=== PATIENT | male | born 1955 | race Caucasian/White ===

== ENCOUNTER 2023-04-02 11:56 | Outpatient (OUT) | payer MEDICARE, SELFPAY ==
[2023-04-02 13:01] LABS: Estimated Average Glucose 123 mg/dL; Glycohemoglobin A1C 5.9 % (4.5-6.2)
[2023-04-02 13:23] LABS: Alanine Aminotransferase 22 U/L (16-63); Albumin Globulin Ratio 1.1; Albumin Level 3.8 g/dL (3.4-5.0); Alkaline Phosphatase 78 U/L (46-116); Anion Gap 12.6; Aspartate Amino Transferase 15 U/L (15-37); BUN Creatinine Ratio 13.9; Bilirubin Total 1.7 mg/dL (0.2-1.0); Calcium 9.5 mg/dL (8.5-10.1); Carbon Dioxide 27.2 mmol/L (21.0-32.0); Chloride 103 mmol/L (98-107); Chol HDL Ratio 3.3; Cholesterol 208 mg/dL (<=200); Estimated GFR (African America >60 (>=60); Estimated GFR (Non-African Ame 59 (>=60); Globulin 3.6 g/dL; Glucose 122 mg/dL (74-106); HDL Cholesterol 63 mg/dL (40-60); Potassium 3.8 mmol/L (3.5-5.1); Sodium 139 mmol/L (136-145); Total Protein 7.4 g/dL (6.4-8.2); Triglycerides 84 mg/dL (<=150); VLDL CHOLESTEROL 16.8 mg/dL
== END 2023-04-02 11:57 ==
LOC: LAB 12:01
PROVIDERS: PCP Family Medicine; Visit Provider Family Medicine
DX: E11.8 Type 2 diabetes mellitus with unspecified complications (principal)
CPT/HCPCS: 36415; 80053; 80061; 83036

== ENCOUNTER 2023-07-09 11:47 | Outpatient (OUT) | payer MEDICARE, SELFPAY ==
[2023-07-09 13:36] LABS: Estimated Average Glucose 114 mg/dL; Glycohemoglobin A1C 5.6 % (4.5-6.2)
== END 2023-07-09 11:48 | disposition home or self-care (01) ==
PROVIDERS: PCP Family Medicine; Visit Provider Family Medicine
DX: I10 Essential (primary) hypertension (principal); R73.09 Other abnormal glucose
CPT/HCPCS: 36415; 83036

== ENCOUNTER 2023-10-09 11:12 | Outpatient (OUT) | payer MEDICARE, SELFPAY ==
[2023-10-09 14:23] LABS: C. Difficile PCR NEGATIVE (NEGATIVE)
== END 2023-10-09 11:13 | disposition home or self-care (01) ==
LOC: LAB 11:12
PROVIDERS: PCP Family Medicine; Visit Provider Family Medicine
DX: I10 Essential (primary) hypertension (principal)
CPT/HCPCS: 87045; 87046; 87427; 87493

== ENCOUNTER 2024-04-02 11:24 | Outpatient (OUT) | payer MEDICARE, SELFPAY ==
--- OUTSIDE RECORDS SUMMARY | 2024-04-02 11:36 | XMS_ITS | CCD ---
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 Role Phone Alanis Saleem Primary Care Physician GRAEME ., DR THAPA Admitting Unavailable HOY ., DR THAPA Attending Unavailable HOY ., DR THAPA Primary Care Unavailable NILL ., DR CLINTON Admitting Unavailable NILL ., DR CLINTON Attending Unavailable HOY ., DR THAPA Primary Care Unavailable NILL ., DR CLINTON Consulting Unavailable KATH MINA Consulting Unavailable MARY LOU PATRICK Consulting Unavailable BEE ., DR FERNANDES Admitting Unavailable BEE ., DR FERNANDES Attending Unavailable HOY ., DR THAPA Primary Care Unavailable BEE ., DR FERNANDES Consulting Unavailable ARIZA, MEÑO Consulting Unavailable HOY ., DR THAPA Admitting Unavailable HOY ., DR THAPA Attending Unavailable HOY ., DR THAPA Primary Care Unavailable HOY ., DR THAPA Consulting Unavailable HOY ., DR THAPA Admitting Unavailable HOY ., DR THAPA Attending Unavailable HOY ., DR THAPA Primary Care Unavailable HOY ., DR THAPA Consulting Unavailable HOY ., DR THAPA Admitting Unavailable HOY ., DR THAPA Attending Unavailable HOY ., DR THAPA Primary Care Unavailable HOY ., DR THAPA Consulting Unavailable BEE ., DR FERNANDES Admitting Unavailable BEE ., DR FERNANDES Attending Unavailable HOY ., DR THAPA Primary Care Unavailable BEE ., DR FERNANDES Consulting Unavailable OSCO, DR JAIRO Panchal Consulting Unavailable EastonyUgoAlanis Referring Unavailable NILLMary Beth R Attending Unavailable NILL, Mary Beth R Attending Unavailable NILL, Mary Beth R Attending Unavailable BEE, Jasper R Attending Unavailable BEEJasper Attending Unavailable NILL, Mary Beth R Attending Unavailable Hoy, Alanis Referring Unavailable Allergies Allergy Classification Reported Allergen(s) Allergy Type Date of Onset Reaction(s) Facility (1 source) bee venom Drug allergy (disorder) [facility] Repository (1 source) No Known Medication Allergies; Translations: [No Known Medication Allergies] Propensity to adverse reactions (disorder) [facility] Repository Medications Current Medications Medication Drug Class(es) Dates Sig (Normalized) Sig (Original) finasteride 5 mg oral tablet (4 sources) 5-alpha Reductase Inhibitor Start: 02-22-2022 take 1 tablet by mouth once daily finasteride 5 mg Tab 5 mg = 1 tab(s), Oral, Daily, Refills(s) 0 Start Date: 02/22/22 Status: Ordered metoprolol tartrate 50 mg oral tablet (4 sources) beta-Adrenergic Rochelle Start: 11-20-2022 take 1 tablet by mouth twice daily Metoprolol tartrate 50 mg Tab 50 mg = 1 tab(s), Oral, BID, Refills(s) 0 Start Date: 11/20/22 Status: Ordered Start: 07-26-2019 take 1 mg by mouth once daily metoprolol 25 mg ER Tab mg tab(s), Oral, Daily, Refills(s) 0 Start Date: 07/26/19 Status: Ordered pantoprazole 40 mg delayed release oral tablet (4 sources) Proton Pump Inhibitor Start: 11-20-2022 take 1 tablet by mouth once daily Pantoprazole [address] Tab 40 mg = 1 tab(s), Oral, Daily, Refills(s) 0 Start Date: 11/20/22 Status: Ordered Start: 07-26-2019 take 1 mg by mouth once daily pantoprazole 40 mg Oral EC Tab mg tab(s), Oral, Daily, Refills(s) 0 Start Date: 07/26/19 Status: Ordered tamsulosin hydrochloride 0.4 mg oral capsule (4 sources) alpha-Adrenergic Rochelle Start: 07-26-2019 take 1 capsule by mouth twice daily tamsulosin 0.4 mg Cap 0.4 mg = 1 cap(s), Oral, BID, # 180 cap(s), Refills(s) 3, Pharmacy: [facility] Start Date: 07/26/19 Status: Ordered Problems Active Problems Problem Classification Problem Date Documented Da te Episodic/Chronic Biliary tract disease (3 sources) Biliary calculus 11-20-2022 Episodic Calculus of urinary tract (17 sources) History of calculus of kidney; Translations: [Personal history of urinary calculi] Onset: 2 Episodic Diabetes mellitus without complication (4 sources) Type 2 diabetes mellitus without complications; Translations: [TYPE 2 DM WITHOUT COMPLICATIONS] Onset: 3 Chronic Diabetes mellitus without complication (5 sources) Prediabetes; Translations: [Prediabetes] Onset: 3 11-22-2022 Episodic Disorders of lipid metabolism (1 source) Hyperlipidemia, unspecified; Translations: [HYPERLIPIDEMIA UNSPECIFIED] Onset: 3 Chronic Diverticulosis and diverticulitis (7 sources) Diverticular disease; Translations: [Diverticula of intestine] Onset: 3 11-20-2022 Chronic Esophageal disorders (4 sources) Gastroesophageal reflux disease; Translations: [Gastro-esophageal reflux disease without esophagitis] Onset: 3 11-20-2022 Chronic Essential hypertension (5 sources) Hypertensive disorder; Translations: [Essential (primary) hypertension] Onset: 3 04-30-2019 Chronic Genitourinary symptoms and ill-defined conditions (4 sources) Nocturia 07-26-2019 Episodic Hemorrhoids (2 sources) Other hemorrhoids; Translations: [Residual hemorrhoidal skin tags] Onset: 3 Episodic Hyperplasia of prostate (12 sources) Benign prostatic hypertrophy without outflow obstruction; Translations: [Benign prostatic hyperplasia without lower urinary tract symptoms] Onset: 2 Chronic Nutritional deficiencies (1 source) Vitamin D deficiency, unspecified; Translations: [VITAMIN D DEFICIENCY UNSPECIFIED] Onset: 3 Chronic Other aftercare (1 source) 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; Translations: [OTH SALES TRAINER CURRENT DRUG THERAPY] Onset: 3 Episodic Other and unspecified benign neoplasm (1 source) Polyp of colon; Translations: [Polyp of colon] Onset: 3 Episodic Other and unspecified benign neoplasm (3 sources) Benign neoplasm of descending colon; Translations: [Benign neoplasm of descending colon] Onset: 3 Episodic Other and unspecified benign neoplasm (1 source) Benign neoplasm of descending colon; Translations: [BENIGN NEOPLASM OF DESCENDING COLON] Onset: 3 Episodic Other and unspecified benign neoplasm (1 source) Polyp of colon; Translations: [POLYP OF COLON] Onset: 3 Episodic Other diseases of kidney and ureters (2 sources) Acquired renal cyst without neoplastic change; Translations: [Cyst of kidney, acquired] Onset: 2 Episodic Other diseases of kidney and ureters (4 sources) Hydronephrosis due to ureteral obstruction 04-30-2019 Episodic Other diseases of kidney and ureters (1 source) Cyst of kidney, acquired; Translations: [CYST OF KIDNEY ACQUIRED] Onset: 3 Episodic Other diseases of kidney and ureters (1 source) Cyst of kidney 05-21-2023 Episodic Other gastrointestinal disorders (1 source) Abnormal feces; Translations: [Other fecal abnormalities] Onset: 3 Episodic Other gastrointestinal disorders (3 sources) Occult blood in stools 11-22-2022 Episodic Other gastrointestinal disorders (2 sources) Hyperplastic polyp of intestine 01-07-2023 Episodic Other gastrointestinal disorders (4 sources) Other fecal abnormalities; Translations: [OTHER FECAL ABNORMALITIES] Onset: 3 Episodic Other nutritional; endocrine; and metabolic disorders (3 sources) Body mass index 30+ - obesity 11-22-2022 Chronic Other screening for suspected conditions (not mental disorders or infectious disease) (11 sources) Raised prostate specific antigen; Translations: [Elevated prostate specific antigen [PSA]] Onset: 2 Episodic Other upper respiratory disease (3 sources) Seasonal allergic rhinitis 11-20-2022 Chronic Past or Other Problems Problem Classification Problem Date Documented Da te Episodic/Chronic Other injuries and conditions due to external causes (4 sources) Other injury of unspecified body region, initial encounter; Translations: [OTHER INJURY UNS BODY REGION INIT] Onset: 06-11-2022 Episodic Other non-traumatic joint disorders (4 sources) Pain in unspecified joint; Translations: [PAIN IN UNSPECIFIED JOINT] Onset: 11-13-2022 Episodic Results Test Name Value Interpretation Reference Range Facility Lab Reportson 05-29-2023 Lab Reports [id number] #1.00CD:127 Normal [facility] Ambulatory Visit Summaryon 0 05-26-2023 Ambulatory Visit Summary GIL ALMEIDA :1955 Visit Date:05/26/2023 Ambulatory Visit Instructions Your Diagnosis BPH with elevated PSA Kidney stone Renal cyst History of kidney stones Bladder stones Tests Performed Urnls Dip Stick Auto w/o Microscopy POC 04633 XR Abdomen 1 View -- Results Pending -- Please visit your patient portal for your results or contact your primary care physician. Your Care Team Attending Physician - Jasper BEE MD Primary Care Physician - Alanis Saleem MD This Is Your Medications List finasteride (finasteride 5 mg Tab) tamsulosin (tamsulosin 0.4 mg Cap) Contact prescribing physician if questions or concerns metoprolol (Metoprolol tartrate 50 mg Tab) pantoprazole (Pantoprazole [address] Tab) Procedures Performed Colonoscopy (12/18/2022), ESWL of kidney (03/01/2021), Cystoscopic removal of ureteric stent (05/04/2019), Lithotripsy using laser (04/29/2019), Repair of left inguinal hernia. Discharge Vitals Heart Rate (Peripheral) 80 Blood Pressure 150/100 Height 70 in Height 177.8 cm Weight 185.46 lb Weight 84.3 kg BMI 26.67 What to do next You Need to Schedule the Following Appointments Follow Up with GAEL KRISHNAMURTHY, AYUSH Adams When: In 1 year Comments: JOAN Where: [facility] [address], [place] [address]- [phone] Medications What How Much When Instructions Unchanged finasteride (finasteride 5 mg Tab) 1 Tablets By Mouth Every day Unchanged tamsulosin (tamsulosin 0.4 mg Cap) 1 Capsules By Mouth 2 times a day Unchanged metoprolol (Metoprolol tartrate 50 mg Tab) 1 Tablets By Mouth 2 times a day Contact prescribing physician if questions or concerns Unchanged pantoprazole (Pantoprazole [address] Tab) 1 Tablets By Mouth Every day Contact prescribing physician if questions or concerns Test Results Urnls Dip Stick Auto w/o Microscopy POC 00415 (05/26/2023) Bilirubin Urine Dipstick - Negative Blood Urine Dipstick - Negative Glucose Urine Dipstick - Negative Ketones Urine Dipstick - Negative Leukocytes Urine Dipstick - Negative Nitrite Urine Dipstick - Negative Protein Urine Dipstick - Negative Specific [place] Urine Dipstick - 1.020 Urine Appearance Urine Dipstick - Clear Urine Color Urine Dipstick - Yellow Urobilinogen Urine Dipstick - Normal 0.2-1 EU/dl pH Urine Dipstick - 7.5 Allergies No Known Allergies No Known Medication Allergies Problems Ongoing - Any problem that you are currently receiving treatment for. Bladder stones BMI 32.0-32.9,adult BPH with elevated PSA Cholelithiasis Diverticulosis Elevated PSA Enlarged prostate with urinary obstruction GERD (gastroesophageal reflux disease) History of kidney stones Hydronephrosis with ureteral calculus Hyperplastic polyp of sigmoid colon Hypertension Kidney stone Nocturia Positive fecal occult blood test Pre-diabetes Renal cyst Seasonal allergic rhinitis Sigmoid diverticulosis Tubular adenoma of colon Education Materials Dietary Guidelines to Help Prevent Kidney Stones Kidney stones are deposits of minerals and salts that form inside your kidneys. Your risk of developing kidney stones may be greater depending on your diet, your lifestyle, the medicines you take, and whether you have certain medical conditions. Most people can lower their chances of developing kidney stones by following the instructions below. Your dietitian may give you more specific instructions depending on your overall health and the type of kidney stones you tend to develop. What are tips for following this plan? Reading food labels ? Choose foods with no salt added or low-salt labels. Limit your salt (sodium) intake to less than 1,500 mg a day. ? Choose foods with calcium for each meal and snack. Try to eat about 300 mg of calcium at each meal. Foods that contain 200?500 mg of calcium a serving include: ? 8 oz (237 mL) of milk, calcium-fortifiednon -dairy milk, and calcium-fortifiedfru it juice. Calcium-fortified means that calcium has been added to these drinks. ? 8 oz (237 mL) of kefir, yogurt, and soy yogurt. ? 4 oz (114 g) of tofu. ? 1 oz (28 g) of cheese. ? 1 cup (150 g) of dried figs. ? 1 cup (91 g) of cooked broccoli. ? One 3 oz (85 g) can of sardines or mackerel. Most people need 1,000?1,500 mg of calcium a day. Talk to your dietitian about how much calcium is recommended for you. Shopping ? Buy plenty of fresh fruits and vegetables. Most people do not need to avoid fruits and vegetables, even if these foods contain nutrients that may contribute to kidney stones. ? When shopping for convenience foods, choose: ? Whole pieces of fruit. ? Pre-made salads with dressing on the side. ? Low-fat fruit and yogurt smoothies. ? Avoid buying frozen meals or prepared deli foods. These can be high in sodium. ? Look for foods with live cultures, such (more content not included)... Normal [facility] Patient Educationon 05-26-20 Patient Education Nephrology Dietary Guidelines to Help Prevent Kidney Stones Kidney stones are deposits of minerals and salts that form inside your kidneys. Your risk of developing kidney stones may be greater depending on your diet, your lifestyle, the medicines you take, and whether you have certain medical conditions. Most people can lower their chances of developing kidney stones by following the instructions below. Your dietitian may give you more specific instructions depending on your overall health and the type of kidney stones you tend to develop. What are tips for following this plan? Reading food labels ? Choose foods with no salt added or low-salt labels. Limit your salt (sodium) intake to less than 1,500 mg a day. ? Choose foods with calcium for each meal and snack. Try to eat about 300 mg of calcium at each meal. Foods that contain 200?500 mg of calcium a serving include: ? 8 oz (237 mL) of milk, calcium-fortifiednon -dairy milk, and calcium-fortifiedfru it juice. Calcium-fortified means that calcium has been added to these drinks. ? 8 oz (237 mL) of kefir, yogurt, and soy yogurt. ? 4 oz (114 g) of tofu. ? 1 oz (28 g) of cheese. ? 1 cup (150 g) of dried figs. ? 1 cup (91 g) of cooked broccoli. ? One 3 oz (85 g) can of sardines or mackerel. Most people need 1,000?1,500 mg of calcium a day. Talk to your dietitian about how much calcium is recommended for you. Shopping ? Buy plenty of fresh fruits and vegetables. Most people do not need to avoid fruits and vegetables, even if these foods contain nutrients that may contribute to kidney stones. ? When shopping for convenience foods, choose: ? Whole pieces of fruit. ? Pre-made salads with dressing on the side. ? Low-fat fruit and yogurt smoothies. ? Avoid buying frozen meals or prepared deli foods. These can be high in sodium. ? Look for foods with live cultures, such as yogurt and kefir. ? Choose high-fiber grains, such as whole-wheat breads, oat bran, and wheat cereals. Cooking ? Do not add salt to food when cooking. Place a salt shaker on the table and allow each person to add his or her own salt to taste. ? Use vegetable protein, such as beans, textured vegetable protein (TVP), or tofu, instead of meat in pasta, casseroles, and soups. Meal planning ? Eat less salt, if told by your dietitian. To do this: ? Avoid eating processed or pre-made food. ? Avoid eating fast food. ? Eat less animal protein, including cheese, meat, poultry, or fish, if told by your dietitian. To do this: ? Limit the number of times you have meat, poultry, fish, or cheese each week. Eat a diet free of meat at least 2 days a week. ? Eat only one serving each day of meat, poultry, fish, or seafood. ? When you prepare animal protein, cut pieces into small portion sizes. For most meat and fish, one serving is about the size of the palm of your hand. ? Eat at least five servings of fresh fruits and vegetables each day. To do this: ? Keep fruits and vegetables on hand for snacks. ? Eat one piece of fruit or a handful of berries with breakfast. ? Have a salad and fruit at lunch. ? Have two kinds of vegetables at dinner. ? Limit foods that are high in a substance called oxalate. These include: ? Spinach (cooked), rhubarb, beets, sweet potatoes, and [place] chard. ? Peanuts. ? Potato chips, taiwanese fries, and baked potatoes with skin on. ? Nuts and nut products. ? Chocolate. ? If you regularly take a diuretic medicine, make sure to eat at least 1 or 2 servings of fruits or vegetables that are high in potassium each day. These include: ? Avocado. ? Banana. ? [place], prune, carrot, or tomato juice. ? Baked potato. ? Cabbage. ? Beans and split peas. Lifestyle ? Drink enough fluid to keep your urine pale yellow. This is the most important thing you can do. Spread your fluid intake throughout the day. ? If you drink alcohol: ? Limit how much you use to: ? 0?1 drink a day for women who are not . ? 0?2 drinks a day for men. ? Be aware of how much alcohol is in your drink. In the [place] one drink equals one 12 oz bottle of beer (355 mL), one 5 oz glass of wine (148 mL), or one 1? oz glass of hard liquor (44 mL). ? Lose weight if told by your health care provider. Work with your dietitian to find an eating plan and weight loss strategies that work best for you. General information ? Talk to your health care provider and dietitian about taking daily supplements. You may be told the following depending on your health and the cause of your kidney stones: ? Not to take supplements with vitamin C. ? To take a calcium supplement. ? To take a daily probiotic supplement. ? To take other supplements such as magnesium, fish oil, or vitamin B6. ? Take [id number] and prescription medicines only as told by your health care provider. These include supplements. What foods should I limit? Limit your in (more content not included)... Normal [facility] Reminderson 05-26-2023 Reminders - From: Edilia Silva To: KIKA Pandya Bee; Sent: 05/26/2023 17:01:54 EDT Show up: 04/25/2024 17:01:00 EDT Subject: KUB prior to appt Reminder Message Please Remember to:_have pt get KUB done prior to appt. Normal [facility] Urology Office/Clinic Noteon 05-26-2023 Urology Office/Clinic Note Chief Complaint 15 month follow up HPI Staff 15 month follow up w/KUB done 02/19/23 due to Kidney Stone & Rt Renal Cyst. (office RS'd x1 due to PRW schedule). CT SCAN done 03/06/23. Previous DX: BPH w/Elevated PSA, Kidney Stone & Rt Renal Cyst. *Flomax 0.4mg BID & Finasteride 5mg QD therapy. S/P ESWL done 03/01/21. Dysuria: denies pain or burning Incomplete bladder emptying: denies Hematuria: denies visible blood Frequency: denies Urgency: yes due to increase of water Nocturia: 2-3x a night Stream: denies hesitancy, denies weak stream Leaking: denies Post void dripping: denies Wearing pads/ Depends: denies Urge incontinence: denies Stress incontinence: denies Incontinence without Sensory Awareness: denies Abdominal pain: denies Flank pain: denies Sexual complaints: denies History of Present Illness Tests reviewed: reviewed UA, KUB, CT scan I have reviewed the previous health record information and history for this patient from Dr. Bee. I have reviewed and verified the staff HPI to be accurate for this encounter. There have been no associated fever, chills, flank pain, or blood in the urine. Denies any urinary infections since last encounter. Review of Systems PHQ Score Initial Depression Screen Score: 0 ROS - Provider Constitutional: denies weight loss, denies hot flashes. Eyes: denies eye problems. Gastrointestinal: denies nausea, denies vomiting. Cardiovascular: denies chest pain or angina. Integumentary: no dryness Musculoskeletal: denies musculoskeletal symptoms. ENMT: denies otolaryngeal symptoms. Respiratory: no shortness of breath. Heme/Lymph: denies easy bleeding tendency, denies easy bruising tendency. Psychiatric: no confusion, no anxiety. Genitourinary: See HPI. Physical Exam Vitals & Measurements HR: 80(Peripheral) BP: 150/100 HT: 70 in HT: 177.8 cm WT: 84.3 kg WT: 185.46 lb BMI: 26.67 General Appearance: alert, no distress, well nourished, well developed male. Genitourinary: normal scrotum, normal testes, normal urethra, normal epididymis, normal vas deferens/spermatic cord. Flank Pain: none. Bladder: nonpalpable. Assessment/Plan Pt reports he was recently diagnosed with diabetes. 1. BPH with elevated PSA (N40.0: Benign prostatic hyperplasia without lower urinary tract symptoms) PSA (monitored by PCP): 02/03/21 - 1.35 10/02/21 - 1.0 (2.0 with Finasteride) 11/13/22 - 1.40 (2.80 with Finasteride) Pt continues taking Finasteride 5mg QD and Tamsulosin 0.4mg BID. Reports he has nocturia 2-3x/night, admits he does drink a lot of water. Good stream. Feels he empties completely. UA today negative for blood and infection. 2. Kidney stone (N20.0: Calculus of kidney) S/p Left ESWL 03/01/21 [1] KUB 02/19/23 at [facility] showed stable, tiny left renal calcifications CT AP w con done 03/06/23 at [facility] showed nonobstructing bilateral renal stones and 2 adjacent 4 mm stones within posterior right urinary bladder. 1.24 Cr, 58 EGFR on 03/06/23. Denies any flank pain or changes in urinary sxs. Recommended pt to increase fluid intake to ten to twelve 16oz bottles a day; preferably water, clear pop, and sugar free lemonade. Follow up with KUB in 1 year in or sooner if needed. All questions/concerns were discussed. Pt to call the office if he encounters any issues prior. Pt acknowledges understanding. 3. Renal cyst (N28.1: Cyst of kidney, acquired) Per KUB done 02/03/[address], 9.5cm right renal cyst [2] CT AP w con done 03/06/23 at [facility] showed a 10 cm right superior pole renal cyst and stable, small left superior pole renal cysts. 4. History of kidney stones (Z87.442: Personal history of urinary calculi) Patient shares he has a hx of kidney stones. First one in 1993 and passed naturally, two bilateral stones in 2020 with one still remaining. [3] 5. Bladder stones (N21.0: Calculus in bladder) CT AP w con done 03/06/23 at [facility] showed 2 adjacent 4mm stones within posterior R bladder. he should pass these. Follow-up With When Contact Information GAEL KRISHNAMURTHY, AYUSH Adams In 1 year [facility] [address], [place] [address]- [phone] Additional Instructions: KUB Patient Education Dietary Guidelines to Help Prevent Kidney Stones IEdilia, personally scribed for Dr. Bee on 05/26/2023 13:30:20. . Documentation recorded by the scribeEdilia, accurately reflects the services(s) I performed and decisions made by me. Authenticated by Dr. Bee on 05/26/2023 13:32:10. Problem List/Past Medical History Ongoing Bladder stones BMI 32.0-32.9,adult BPH with elevated PSA Cholelithiasis Diverticulosis Elevated PSA Enlarged prostate with urinary obstruction GERD (gastroesophageal reflux disease) History of kidney stones Hydronephrosis with ureteral calculus Hyperplastic polyp of sigmoid colon Hypertension Kidney stone Nocturia Positive fecal occult blood test Pre-diabete (more content not included)... [facility] Comment on above: Result Comment: Elec tronically Signed By: GAEL KRISHNAMURTHY, Jasper Panchal\.br\Date and Time Signed: 05/26/23 13:32 EDT\.br\Electronically Co-Signed By: Edilia Silva\.br\Date and Time Co-Signed: 05/26/23 13:30 EDT RAD - CT Reporton 03-12-2023 RAD - CT Report [id number] #1.00CD:127 [facility] Lab Reportson 03-07-2023 Lab Reports [id number]# 1.00CD:127 [facility] Reminderson 02-28-2023 Reminders - From: Patricia Lam To: [facility] - Mumtaz Bee; Sent: 02/27/2022 10:03:24 EDT Show up: 01/11/2023 10:03:00 EDT Subject: Ct scan Reminder/Recall Pt needs Ct scan with contrast prior to February 2023 appt Orders sent to [facility] to be scheduled spoke to pt he has not heard anything from [facility] Attempted to call [facility] for the second time Advised pt to call [facility] as well have attempted to call [facility] multiple times in the past two days with no success. Called [facility] to clarify if they received order. Pt is scheduled on March 06 at [facility] at 8:45am will send him a letter today. He is to fast for 4 hours. Patient was notified.[facility] RAD - MISCon 02-24-2023 RAD - MISC [id number] #1.00CD:127 Normal [facility] XR KUB 1 VIEWon 02-20-2023 XR KUB 1 VIEW EXAMINATION: XR KUB 1 VIEW HISTORY: Kidney stone COMPARISON: XR KUB 03/01/2022 FINDINGS: KIDNEY/URETER - RIGHT: No visible renal or ureteral calcifications. KIDNEY/URETER - LEFT: Numerous tiny calcifications projecting over left kidney. PELVIS: No appreciable ureteral stones. Stable appearance of the numerous pelvic calcifications, favoring phleboliths. BOWEL: No abnormal dilation or deviation. BONES: No acute abnormality. OTHER: Negative. No abnormal gaseous collections. IMPRESSION: 1. Grossly stable left nephrolithiasis. Electronically authenticated by: JAIRO WAN Date: 2023-02-20 07:16 Normal [facility] Ambulatory Visit Summaryon 0 01-07-2023 Ambulatory Visit Summary GIL ALMEIDA :1955 Visit Date:01/07/2023 Ambulatory Visit Instructions Your Diagnosis Sigmoid diverticulosis Benign neoplasm of descending colon Hyperplastic polyp of sigmoid colon Your Care Team Attending Physician - Mary Beth EWIR MD Primary Care Physician - Alanis Saleem MD This Is Your Medications List Contact prescribing physician if questions or concerns finasteride (finasteride 5 mg Tab) metoprolol (Metoprolol tartrate 50 mg Tab) pantoprazole (Pantoprazole [address] Tab) tamsulosin (tamsulosin 0.4 mg Cap) Procedures Performed Colonoscopy (12/18/2022), ESWL of kidney (03/01/2021), Cystoscopic removal of ureteric stent (05/04/2019), Lithotripsy using laser (04/29/2019), Repair of left inguinal hernia. What to do next Scheduled Follow-Up Appointments Friday. 2022 11:15 AM EDT With: GAEL KRISHNAMURTHY, Jasper Panchal Where: [facility] General Surgery Office/Clini c Noteon 01-07-2023 General Surgery Office/Clinic Note Chief Complaint colonoscopy follow up HPI Staff 20 day post operative follow up post colonoscopy with descending colon and sigmoid polypectomies. History of Present Illness s/p colonoscopy with polypectomies x 2 for descending colon tubular adenoma and sigmoid hyperplastic polyp; also had moderated sigmoid diverticulosis; doing well, denies abd pain or blood in stools. Review of Systems ROS - Provider Constitutional: no fever, no sweats, no weight loss. Eyes: no glasses, no blurred vision, no visual loss. ENMT: no dentures, no hoarseness, no swallowing difficulties, no hearing loss, no ear infection(s), no nose bleeds. Cardiovascular: normal blood pressure, no chest pain, regular heartbeat, no heart murmur. Respiratory: no shortness of breath, no cough, no asthma, no wheezing. Gastrointestinal: no nausea, no vomiting, no diarrhea, no constipation, no blood in stool, no change in bowel habits, no abdominal pain, no hepatitis. Genitourinary: no kidney stones, no urine infection, no dysuria. Musculoskeletal: no pain, no weakness. Skin: no changing moles, no rash, no skin lumps. Neurologic: no seizures, no epilepsy, no headache. Psychiatric: no emotional or psychiatric problem. Heme/Lymph: no bleeding problems, no anemia, no blood clots, no transfusions. Allergy/Immunologic: no swollen lymph nodes/glands, no IV drug abuse. Other: Additional ROS info: Except as noted in the above Review of Systems and in the History of Present Illness, all other systems have been reviewed and are negative or noncontributory. Assessment/Plan 1. Sigmoid diverticulosis (K57.30: Diverticulosis of large intestine without perforation or abscess without bleeding) high fiber diet and daily fiber supplement 2. Benign neoplasm of descending colon (D12.4: Benign neoplasm of descending colon) f/u surveillance colonoscopy in 5 years, call sooner if problems/questions. 3. Hyperplastic polyp of sigmoid colon (K63.5: Polyp of colon) see # 2 Follow-up No qualifying data available Problem List/Past Medical History Ongoing BMI 32.0-32.9,adult Cholelithiasis Diverticulosis Elevated PSA Enlarged prostate with urinary obstruction GERD (gastroesophageal reflux disease) Hydronephrosis with ureteral calculus Hyperplastic polyp of sigmoid colon Hypertension Kidney stone Nocturia Positive fecal occult blood test Pre-diabetes Seasonal allergic rhinitis Sigmoid diverticulosis Tubular adenoma of colon Historical No qualifying data Procedure/Surgical History Colonoscopy (12/18/2022), ESWL of kidney (03/01/2021), Cystoscopic removal of ureteric stent (05/04/2019), Lithotripsy using laser (04/29/2019), Repair of left inguinal hernia. Medications finasteride 5 mg Tab, 5 mg= 1 tab(s), Oral, Daily Metoprolol tartrate 50 mg Tab, 50 mg= 1 tab(s), Oral, BID Pantoprazole [address] Tab, 40 mg= 1 tab(s), Oral, Daily tamsulosin 0.4 mg Cap, 0.4 mg= 1 cap(s), Oral, BID, 3 refills Allergies No Known Allergies No Known Medication Allergies Social History Alcohol Current, 1-2 times per year, 04/30/2019 Substance Abuse - Denies Substance Abuse, 11/22/2022 Tobacco Never (less than 100 in lifetime) Tobacco Use:. Never Smokeless Tobacco Use:., 11/22/2022 Family History Aneurysm: Father. Diabetes: Mother. Diabetes mellitus type 2: Mother. Heart disease: Mother. Hyperlipidemia: Father. Hypertension: Father. Myocardial infarct: Father. Immunizations Vaccine Date Status Comments influenza virus vaccine, inactivated - Not Given Patient Refuses SARS-CoV-2 (COVID-19) mRNA BNT-162b2 vax 01/16/2021 Recorded SARS-CoV-2 (COVID-19) mRNA BNT-162b2 vax 12/27/2020 Recorded Normal [facility] Comment on above: Result Comment: Elec tronically Signed By: NAJMA KRISHNAMURTHY, Mary Beth Galvez\Date and Time Signed: 01/07/23 14:53 EDT Reminderson 01-07-2023 Reminders - From: Angela Sarabia LPN To: GSN - Clinical; Sent: 01/07/2023 14:42:19 EDT Show up: 11/20/2027 07:00:00 EST Subject: colonoscopy recall Due Date/Time: 12/19/2027 07:00:00 EST Reminder/Recall Patient is due for colonoscopy 12/19/2027 due to history of tubular adenoma. Normal [facility] Provider Letter FTon 12-26 Provider Letter [facility] December 26, 2022 GIL ALMEIDA [address] [place] [address] GIL ALMEIDA 1955 Dear _ , We have been trying to reach you with no success. It is important that you return our call upon receiving this letter. Also, at the time of your call, please provide us with your current information. Thank you for your prompt attention to this matter. Sincerely, Dr. Mary Beth Weir MD General Surgery [facility] Pathology Noteon 12-23-2022 Pathology Note [id number] #1.00CD:127 [facility] Outside Colonoscopyon 2022 Outside Colonoscopy [id number] #1.00CD:127 [facility] Pre-Certification Formon Pre-Certification Form [id number] 1#1.00CD:127 [facility] Consent for Procedure/Surger yon 11-25-2022 Consent for Procedure/Surgery [id number] #1.00CD:127 [facility] Ambulatory Visit Summaryon 0 11-22-2022 Ambulatory Visit Summary JUAN PABLOBARBARAGIL H :1955 Visit Date:11/22/2022 Ambulatory Visit Instructions Your Diagnosis Positive fecal occult blood test Your Care Team Attending Physician - NAJMA KRISHNAMURTHY, Mary Beth Panchal Primary Care Physician - Alanis Saleem MD Referring Physician - Alanis Saleem MD This Is Your Medications List Contact prescribing physician if questions or concerns finasteride (finasteride 5 mg Tab) metoprolol (Metoprolol tartrate 50 mg Tab) pantoprazole (Pantoprazole [address] Tab) tamsulosin (tamsulosin 0.4 mg Cap) Procedures Performed ESWL of kidney (03/01/2021), Cystoscopic removal of ureteric stent (05/04/2019), Lithotripsy using laser (04/29/2019), Repair of left inguinal hernia. Discharge Vitals Heart Rate (Peripheral) 72 Respiratory Rate 16 Blood Pressure 152/96 Height 172.72 cm Height 68 in Weight 97.3 kg Weight 214.06 lb BMI 32.62 What to do next Scheduled Follow-Up Appointments Friday 11:15 AM EDT With: Jasper BEE MD Where: [facility] TESS by IFAon 11-18-2022 Antinuclear Antibodies, IFA Negative Normal [facility] Comment on above: Result Comment: Nega tive <1:80 Borderline 1:80 Positive >1:80 ICAP nomenclature: AC-0 For more information about Hep-2 cell patterns use ANApatterns.org, the official website for the International Consensus on Antinuclear Antibody (TESS) Patterns (ICAP). Performed By: #### A NAIFA #### [facility] [address] [place] [address] Dr. Gianna Rodgers Physician Referralon 023 Physician Referral [id number] #1.00CD:127 Normal [facility] ANTISTREPTOLYSIN O AB (ASO)o n 11-14-2022 Antistreptolysin O Ab 26.9 IU/mL Normal 0.0-200.0 [facility] Comment on above: Performed By: #### A SOAB #### [facility] [address] [place] [address] Dr. Gianna Rodgers INSULINon 11-14-2022 Insulin 17.4 uIU/mL Normal 2.6-24.9 [facility] Comment on above: Performed By: #### P SASC, VITAD #### [facility] [address] [place] [address] Dr. Gianna Rodgers LYME DISEASE AB EIA W REFLEX on 11-14-2022 Lyme Total Antibody,EIA Negative Normal Negative [facility] Comment on above: Result Comment: Lyme antibodies not detected. Reflex testing is not indicated. No laboratory evidence of infection with B. burgdorferi (Lyme disease). Negative results may occur in patients recently infected (less than or equal to 14 days) with B. burgdorferi. If recent infection is suspected, repeat testing on a new sample collected in 7 to 14 days is recommended. Performed By: #### P SASC, VITAD #### [facility] [address] [place] [address] Dr. Gianna Rodgers OCC BLD IMMUNO SCREENon OCCULT BLOOD Positive Abnormal NEGATIVE [facility] Comment on above: Performed By: #### P SASC, VITAD #### [facility] [address] [place] [address] Dr. Gianna Rodgers RHEUMATOID FACTORon 11-14-19 RA Latex Turbid. <10.0 Normal <14.0 [facility] Comment on above: Performed By: #### P SASC, VITAD #### [facility] [address] [place] [address] Dr. Gianna Rodgers TESTOSTERONE, TOTALon 2022 Testosterone [Mass/Vol] 329 ng/dL Normal 264-916 [facility] Comment on above: Result Comment: Adul t male reference interval is based on a population of healthy nonobese males (BMI <30) between 19 and 39 years old. daniel Jones.al. JCEM 2017,102;9682-6365. PMID: [id number]. Performed By: #### P SASC, VITAD #### [facility] [address] [place] [address] Dr. Gianna Rodgers CBC AUTO DIFFon 11-13-2022 BASO # 0.0 103/ul Normal 0.0-0.1 [facility] Comment on above: Performed By: #### P SASC, VITAD #### [facility] [address] [place] [address] Dr. Gianna Rodgers Basophils/100 WBC (Bld) 0.4 % Normal 0.2-2.0 [facility] Comment on above: Performed By: #### P SASC, VITAD #### [facility] [address] [place] [address] Dr. Gianna Rodgers EO # 0.1 103/ul Normal 0.0-0.7 [facility] Comment on above: Performed By: #### P SASC, VITAD #### [facility] [address] [place] [address] Dr. Gianna Rodgers Eosinophils/100 WBC (Bld) 1.0 % Normal 0.9-7.0 [facility] Comment on above: Performed By: #### P SASC, VITAD #### [facility] [address] [place] [address] Dr. Gianna Rodgers Erythrocyte distribution width (RBC) [Ratio] 13.8 % Normal 11.0-15.0 [facility] Comment on above: Performed By: #### P SASC, VITAD #### [facility] [address] [place] [address] Dr. Gianna Rodgers Hematocrit (Bld) [Volume fraction] 48.1 % Normal 42.0-54.0 [facility] Comment on above: Performed By: #### P SASC, VITAD #### [facility] [address] [place] [address] Dr. Gianna Rodgers Hemoglobin (Bld) [Mass/Vol] 15.8 g/dL Normal 14.0-18.0 [facility] Comment on above: Performed By: #### P SASC, VITAD #### [facility] [address] [place] [address] Dr. Gianna Rodgers IG # 0.02 10e3/ul Normal 0.00-0.03 [facility] Comment on above: Performed By: #### P SASC, VITAD #### [facility] [address] [place] [address] Dr. Gianna Rodgers IG % 0.2 % Normal 0.0-0.5 [facility] Comment on above: Performed By: #### P SASC, VITAD #### [facility] [address] [place] [address] Dr. Gianna Rodgers LYMPH # 2.3 103/ul Normal 1.2-3.8 [facility] Comment on above: Performed By: #### P SASC, VITAD #### [facility] [address] [place] [address] Dr. Gianna Rodgers Lymphocytes/100 WBC (Bld) 24.0 % Normal 20.5-60.0 [facility] Comment on above: Performed By: #### P SASC, VITAD #### [facility] [address] [place] [address] Dr. Gianna Rodgers MANUAL DIFF REQ NO Normal [facility] Comment on above: Performed By: #### P SASC, VITAD #### [facility] [address] [place] [address] Dr. Gianna Rodgers MCH (RBC) [Entitic mass] 28.8 pg Normal 25.9-34.0 [facility] Comment on above: Performed By: #### P SASC, VITAD #### [facility] [address] [place] [address] Dr. Gianna Rodgers MCHC (RBC) [Mass/Vol] 32.8 g/dL Normal 29.9-35.2 [facility] Comment on above: Performed By: #### P SASC, VITAD #### [facility] [address] [place] [address] Dr. Gianna Rodgers MCV (RBC) [Entitic vol] 87.6 fL Normal 80.0-94.0 [facility] Comment on above: Performed By: #### P SASC, VITAD #### [facility] [address] [place] [address] Dr. Gianna Rodgers MONO # 0.8 103/ul Normal 0.3-0.8 [facility] Comment on above: Performed By: #### P SASC, VITAD #### [facility] [address] [place] [address] Dr. Gianna Rodgers Monocytes/100 WBC (Bld) 8.5 % Normal 1.7-12.0 [facility] Comment on above: Performed By: #### P SASC, VITAD #### [facility] [address] [place] [address] Dr. Gianna Rodgers NEUT # 6.2 103/ul Normal 1.4-6.5 [facility] Comment on above: Performed By: #### P SASC, VITAD #### [facility] [address] [place] [address] Dr. Gianna Rodgers Neutrophils/100 WBC (Bld) 65.9 % Normal 43.0-75.0 [facility] Comment on above: Performed By: #### P SONJA, VITAD #### [facility] [address] [place] [address] Dr. Gianna Rodgers Platelet mean volume (Bld) [Entitic vol] 10.2 fL Normal 9.5-13.5 [facility] Comment on above: Performed By: #### P SONJA, VITAD #### [facility] [address] [place] [address] Dr. Gianna Rodgers PLT 304 103/ul Normal 150-450 [facility] Comment on above: Performed By: #### P SONJA VITAD #### [facility] [address] [place] [address] Dr. Gianna Rodgers RBC 5.49 106/ul Normal 4.70-6.10 [facility] Comment on above: Performed By: #### P SONJA VITAD #### [facility] [address] [place] [address] Dr. Gianna Rodgers WBC 9.4 103/ul Normal 4.0-11.0 [facility] Comment on above: Performed By: #### P SONJA VITAD #### [facility] [address] [place] [address] Dr. Gianna Rodgers CRPon 11-13-2022 CRP [Mass/Vol] mg/L Normal <=1.0 [facility] Comment on above: Performed By: #### C RP, URIC, T7, CMP, LIPID, TSH #### [facility] [address] [place] [address] Dr. Gianna Rodgers FREE THYROXINE INDEX T7on FTI 2.56 Normal 1.30-4.50 [facility] Comment on above: Performed By: #### P ALBERTOC, VITAD #### [facility] [address] [place] [address] Dr. Gianna Rodgers T3U 35.0 % Normal 33.0-40.0 [facility] Comment on above: Performed By: #### P SONJA VITAD #### [facility] [address] [place] [address] Dr. Gianna Rodgers T4 [Mass/Vol] 7.30 ug/dL Normal 4.50-12.10 [facility] Comment on above: Performed By: #### P SASC, VITAD #### [facility] [address] [place] [address] Dr. Gianna Rodgers GLYCOHEMOGLOBIN A1Con 2022 ADA RECOMMENDATION SEE BELOW Normal [facility] Comment on above: Result Comment: ADA RECOMMENDED LIMIT 4.0 - 6.0 ADA THERAPEUTIC TARGET < 7.0 ACTION SUGGESTED > 7.0 Performed By: #### A 1C #### [facility] [address] [place] [address] Dr. Gianna Rodgers Glucose [Mass/Vol] 146 mg/dL Normal [facility] Comment on above: Performed By: #### A 1C #### [facility] [address] [place] [address] Dr. Gianna Rodgers HbA1c (Bld) [Mass fraction] 6.7 % Critically high 4.5-6.2 [facility] Comment on above: Performed By: #### A 1C #### [facility] [address] [place] [address] Dr. Gianna Rodgers LIPID PROFILEon 11-13-2022 CHOL-HDL RATIO NORM SEE BELOW Normal [facility] Comment on above: Result Comment: 3.3 - 4.4 LOW RISK 4.4 - 7.1 AVERAGE RISK 7.1 - 11.0 MODERATE RISK >11.0 HIGH RISK Performed By: #### P SASC, VITAD #### [facility] [address] [place] [address] Dr. Gianna Rodgers Cholesterol [Mass/Vol] 184 mg/dL Normal <=200 [facility] Comment on above: Performed By: #### P SASC, VITAD #### [facility] [address] [place] [address] Dr. Gianna Rodgers Cholesterol in HDL [Mass/Vol] 66 mg/dL Critically high 40-60 [facility] Comment on above: Performed By: #### P SASC, VITAD #### [facility] [address] [address] [address] Gianna Rodgers Cholesterol in LDL [Mass/Vol] 100.0 mg/dL Normal [facility] Comment on above: Performed By: #### P SASC, VITAD #### [facility] [address] [place] [address] Dr. Gianna Rodgers Cholesterol.total/Chol esterol in HDL [Mass ratio] 2.8 {ratio} Normal [facility] Comment on above: Performed By: #### P SASC, VITAD #### [facility] [address] [place] [address] Dr. Gianna Rodgers HDL NORMAL > or = 60 mg/dl - LOW CARDIOVASCULAR RISK <40 mg/dl - HIGH CARDIOVASCULAR RISK Normal [facility] Comment on above: Performed By: #### P SASC, VITAD #### [facility] [address] [place] [address] Dr. Gianna Rodgers LDL CALC NORMAL SEE BELOW Normal [facility] Comment on above: Result Comment: <100 mg/dl OPTIMAL 100 - 129 mg/dl NEAR OR ABOVE OPTIMAL 130 - 159 mg/dl BORDERLINE HIGH 160 - 189 mg/dl HIGH >190 mg/dl VERY HIGH Performed By: #### P SASC, VITAD #### [facility] [address] [place] [address] Dr. Gianna Rodgers Triglyceride [Mass/Vol] 90 mg/dL Normal <=150 [facility] Comment on above: Performed By: #### P SASC, VITAD #### [facility] [address] [place] [address] Dr. Gianna Rodgers VLDL CALC 18.0 mg/dL Normal [facility] Comment on above: Performed By: #### P SASC, VITAD #### [facility] [address] [place] [address] Dr. Gianna Rodgers PROF 14(COMP METB)on 023 Albumin [Mass/Vol] 3.8 g/dL Normal 3.4-5.0 [facility] Comment on above: Performed By: #### C RP, URIC, T7, CMP, LIPID, TSH #### [facility] [address] [place] [address] Dr. Gianna Rodgers Albumin/Globulin [Mass ratio] 1.2 {ratio} Normal [facility] Comment on above: Performed By: #### C RP, URIC, T7, CMP, LIPID, TSH #### [facility] [address] [place] [address] Dr. Gianna Rodgers ALP [Catalytic activity/Vol] 74 U/L Normal 46-116 [facility] Comment on above: Performed By: #### C RP, URIC, T7, CMP, LIPID, TSH #### [facility] [address] [place] [address] Dr. Gianna Rodgers ALT [Catalytic activity/Vol] 32 U/L Normal 16-63 [facility] Comment on above: Performed By: #### C RP, URIC, T7, CMP, LIPID, TSH #### [facility] [address] [place] [address] Dr. Gianna Rodgers Anion gap [Moles/Vol] 12.7 mmol/L Normal [facility] Comment on above: Performed By: #### C RP, URIC, T7, CMP, LIPID, TSH #### [facility] [address] [place] [address] Dr. Gianna Rodgers AST [Catalytic activity/Vol] 16 U/L Normal 15-37 [facility] Comment on above: Performed By: #### C RP, URIC, T7, CMP, LIPID, TSH #### [facility] [address] [place] [address] Dr. Gianna Rodgers Bilirubin [Mass/Vol] 2.1 mg/dL Critically high 0.2-1.0 [facility] Comment on above: Performed By: #### C RP, URIC, T7, CMP, LIPID, TSH #### [facility] [address] [place] [address] Dr. Gianna Rodgers Calcium [Mass/Vol] 9.5 mg/dL Normal 8.5-10.1 [facility] Comment on above: Performed By: #### C RP, URIC, T7, CMP, LIPID, TSH #### [facility] [address] [place] [address] Dr. Gianna Rodgers Chloride [Moles/Vol] 102 mmol/L Normal 98-107 [facility] Comment on above: Performed By: #### C RP, URIC, T7, CMP, LIPID, TSH #### [facility] [address] [place] [address] Dr. Gianna Rodgers CO2 [Moles/Vol] 27.7 mmol/L Normal 21.0-32.0 [facility] Comment on above: Performed By: #### C RP, URIC, T7, CMP, LIPID, TSH #### [facility] [address] [place] [address] Dr. Gianna Rodgers Creatinine [Mass/Vol] 1.08 mg/dL Normal 0.70-1.30 [facility] Comment on above: Performed By: #### C RP, URIC, T7, CMP, LIPID, TSH #### [facility] [address] [place] [address] Dr. Gianna Rodgers EGFR-AF ALGERIAN >60 Normal >=60 [facility] Comment on above: Performed By: #### C RP, URIC, T7, CMP, LIPID, TSH #### [facility] [address] [place] [address] Dr. Gianna Rodgers EGFR-NON AF ALGERIAN >60 Normal >=60 [facility] Comment on above: Performed By: #### C RP, URIC, T7, CMP, LIPID, TSH #### [facility] [address] [place] [address] Dr. Gianna Rodgers Globulin (S) [Mass/Vol] 3.2 g/dL Normal [facility] Comment on above: Performed By: #### C RP, URIC, T7, CMP, LIPID, TSH #### [facility] [address] [place] [address] Dr. Gianna Rodgers Glucose [Mass/Vol] 135 mg/dL Critically high 74-106 T [facility] Comment on above: Performed By: #### C RP, URIC, T7, CMP, LIPID, TSH #### [facility] [facility] [address] [place] [address] Dr. Gianna Rodgers Potassium [Moles/Vol] 3.4 mmol/L Critically low 3.5-5.1 [facility] Comment on above: Performed By: #### C RP, URIC, T7, CMP, LIPID, TSH #### [facility] [address] [place] [address] Dr. Gianna Rodgers Protein [Mass/Vol] 7.0 g/dL Normal 6.4-8.2 [facility] Comment on above: Performed By: #### C RP, URIC, T7, CMP, LIPID, TSH #### [facility] [address] [place] [address] Dr. Gianna Rodgers Sodium [Moles/Vol] 139 mmol/L Normal 136-145 [facility] Comment on above: Performed By: #### C RP, URIC, T7, CMP, LIPID, TSH #### [facility] [address] [place] [address] Dr. Gianna Rodgers Urea nitrogen [Mass/Vol] 17.0 mg/dL Normal 7.0-18.0 [facility] Comment on above: Performed By: #### C RP, URIC, T7, CMP, LIPID, TSH #### [facility] [address] [place] [address] Dr. Gianna Rodgers Urea nitrogen/Creatinine [Mass ratio] 15.7 mg/mg Normal [facility] Comment on above: Performed By: #### C RP, URIC, T7, CMP, LIPID, TSH #### [facility] [address] [place] [address] Dr. Gianna Rodgers TSHon 11-13-2022 TSH 0.436 uIU/mL Normal 0.358-3.740 The [facility] Comment on above: Performed By: #### P SASC, VITAD #### [facility] [address] [place] [address] Dr. Gianna Rodgers URIC ACID SERUMon 11-13-2022 Urate [Mass/Vol] 5.2 mg/dL Normal 3.5-7.2 The [facility] Comment on above: Performed By: #### C RP, URIC, T7, CMP, LIPID, TSH #### [facility] [address] [place] [address] Dr. Gianna Rodgers VITAMIN D 25 OHon 11-13-2022 VIT D 25-OH 32.8 ng/mL Normal [facility] Comment on above: Performed By: #### P SASC, VITAD #### [facility] [address] [place] [address] Dr. Gianna Rodgers VIT D RANGES SEE BELOW Normal [facility] Comment on above: Result Comment: <20 ng/mL Vit D deficient 20 - <30 ng/mL Vit D insufficient 30 - 100 ng/mL Vit D sufficient >100 ng/mL Potential Toxicity Performed By: #### P SASC, VITAD #### [facility] [address] [place] [address] Dr. Gianna Rodgers LYME DISEASE AB EIA W REFLEX on 06-12-2022 Lyme Total Antibody,EIA Negative Normal Negative [facility] Comment on above: Result Comment: Lyme Antibody Negative No laboratory evidence of infection with B. burgdorferi (Lyme disease). Negative results may occur in patients recently infected (less than or equal to 14 days) with B. burgdorferi. If recent infection is suspected, repeat testing on a new sample collected in 7 to 14 days is recommended. Performed By: #### L YMA #### [facility] [address] [place] [address] Dr. Gianna Rodgers CBC AUTO DIFFon 06-11-2022 BASO # 0.1 103/ul Normal 0.0-0.1 [facility] Comment on above: Performed By: #### C BC #### [facility] [address] [place] [address] Dr. Gianna Rodgers Basophils/100 WBC (Bld) 0.7 % Normal 0.2-2.0 [facility] Comment on above: Performed By: #### C BC #### [facility] [address] [place] [address] Dr. Gianna Rodgers EO # 0.1 103/ul Normal 0.0-0.7 [facility] Comment on above: Performed By: #### C BC #### [facility] [address] [place] [address] Dr. Gianna Rodgers Eosinophils/100 WBC (Bld) 1.6 % Normal 0.9-7.0 [facility] Comment on above: Performed By: #### C BC #### [facility] [address] [place] [address] Dr. Gianna Rodgers Erythrocyte distribution width (RBC) [Ratio] 13.1 % Normal 11.0-15.0 [facility] Comment on above: Performed By: #### C BC #### [facility] [address] [place] [address] Dr. Gianna Rodgers Hematocrit (Bld) [Volume fraction] 45.2 % Normal 42.0-54.0 [facility] Comment on above: Performed By: #### C BC #### [facility] [address] [place] [address] Dr. Gianna Rodgers Hemoglobin (Bld) [Mass/Vol] 15.1 g/dL Normal 14.0-18.0 [facility] Comment on above: Performed By: #### C BC #### [facility] [address] [place] [address] Dr. Gianna Rodgers IG # 0.02 10e3/ul Normal 0.00-0.03 [facility] Comment on above: Performed By: #### C BC #### [facility] [address] [place] [address] Dr. Gianna Rodgers IG % 0.3 % Normal 0.0-0.5 [facility] Comment on above: Performed By: #### C BC #### [facility] [address] [place] [address] Dr. Gianna Rodgers LYMPH # 1.3 103/ul Normal 1.2-3.8 [facility] Comment on above: Performed By: #### C BC #### [facility] [address] [place] [address] Dr. Gianna Rodgers Lymphocytes/100 WBC (Bld) 16.7 % Critically low 20.5-60.0 [facility] Comment on above: Performed By: #### C BC #### [facility] [address] [place] [address] Dr. Gianna Rodgers MANUAL DIFF REQ NO Normal [facility] Comment on above: Performed By: #### C BC #### [facility] [address] [place] [address] Dr. Gianna Rodgers MCH (RBC) [Entitic mass] 29.0 pg Normal 25.9-34.0 [facility] Comment on above: Performed By: #### C BC #### [facility] [address] [place] [address] Dr. Gianna Rodgers MCHC (RBC) [Mass/Vol] 33.4 g/dL Normal 29.9-35.2 [facility] Comment on above: Performed By: #### C BC #### [facility] [address] [place] [address] Dr. Gianna Rodgers MCV (RBC) [Entitic vol] 86.9 fL Normal 80.0-94.0 [facility] Comment on above: Performed By: #### C BC #### [facility] [address] [place] [address] Dr. Gianna Rodgers MONO # 0.7 103/ul Normal 0.3-0.8 [facility] Comment on above: Performed By: #### C BC #### [facility] [address] [place] [address] Dr. Gianna Rodgers Monocytes/100 WBC (Bld) 8.7 % Normal 1.7-12.0 [facility] Comment on above: Performed By: #### C BC #### [facility] [address] [place] [address] Dr. Gianna Rodgers NEUT # 5.4 103/ul Normal 1.4-6.5 [facility] Comment on above: Performed By: #### C BC #### [facility] [address] [place] [address] Dr. Gianna Rodgers Neutrophils/100 WBC (Bld) 72.0 % Normal 43.0-75.0 [facility] Comment on above: Performed By: #### C BC #### [facility] [address] [place] [address] Dr. Gianna Rodgers Platelet mean volume (Bld) [Entitic vol] 9.4 fL Critically low 9.5-13.5 [facility] Comment on above: Performed By: #### C BC #### [facility] [address] [place] [address] Dr. Gianna Rodgers PLT 385 103/ul Normal 150-450 [facility] Comment on above: Performed By: #### C BC #### [facility] [address] [place] [address] Dr. Gianna Rodgers RBC 5.20 106/ul Normal 4.70-6.10 [facility] Comment on above: Performed By: #### C BC #### [facility] [address] [place] [address] Dr. Gianna Rodgers WBC 7.5 103/ul Normal 4.0-11.0 [facility] Comment on above: Performed By: #### C BC #### [facility] [address] [place] [address] Dr. Gianna Rodgers CRPon 06-11-2022 CRP 3.8 mg/dL Critically high <=1.0 [facility] Comment on above: Performed By: #### P SASC, VITAD #### [facility] [address] [place] [address] Dr. Gianna Rodgers SED RATE [facility] 2021 SED RATE 46 mm/hr Critically high <=20 [facility] Comment on above: Performed By: #### P SASC, VITAD #### [facility] [address] [place] [address] Dr. Gianna Rodgers XR KUB 1 VIEWon 03-01-2022 XR KUB 1 VIEW EXAM: XR KUB 1 VIEW Clinical Indication: Kidney stone Comparison: Earlier today FINDINGS: The supine and upright views of the abdomen shows a non-obstructive bowel gas pattern. There is no abnormal dilatation of bowel loops. No significant air fluid levels. There is no pneumoperitoneum. There is suggestion of a rounded mass overlying the right kidney. Faint stones are seen overlying the left kidney. Calcifications are seen in the right and left side of the pelvis. There are no clinically significant osseous abnormalities noted. IMPRESSION: Suspect left-sided kidney stones. Possible stone overlying the right ureter is no longer seen. SL: [id number] Electronically authenticated by: MEÑO ARIZA Date: 2022-03-01 16:28 Normal [facility] Vital Signs Date Time Vital Sign Value Performing Clinician Ekaterina shankar 05-26-2023 12:36-0400 Diastolic blood pressure 100 mm[Hg] Jasper BEE [facility] 05-26-2023 12:36-0400 Mean blood pressure 117 mm[Hg] Jasper BEE [facility] 05-26-2023 12:36-0400 Systolic blood pressure 150 mm[Hg] Jasper BEE [facility] 05-26-2023 12:25-0400 Blood Pressure Location Jasper BEE [facility] 05-26-2023 12:25-0400 Diastolic blood pressure 91 mm[Hg] Jasper BEE [facility] 05-26-2023 12:25-0400 Heart rate 80 /min Jasper BEE [facility] 05-26-2023 12:25-0400 Systolic blood pressure 162 mm[Hg] Jasper BEE [facility] 11-22-2022 13:01-0500 Blood Pressure Location Mary Beth WE[facility] [place] 11-22-2022 13:01-0500 Diastolic blood pressure 96 mm[Hg] Mary Beth WE[facility] [place] 11-22-2022 13:01-0500 Heart rate 72 /min Mary Beth WE[facility] [place] 11-22-2022 13:01-0500 Respiratory rate 16 /min Mary Beth WE[facility] [place] 11-22-2022 13:01-0500 Systolic blood pressure 152 mm[Hg] Mary Beth WEIR [facility] [place] 02-22-2022 10:47-0400 Blood Pressure Location Jasper BEE [facility] 02-22-2022 10:47-0400 Diastolic blood pressure 81 mm[Hg] Jasper BEE [facility] 02-22-2022 10:47-0400 Heart rate 70 /min Jasper BEE [facility] 02-22-2022 10:47-0400 Respiratory rate 16 /min Jasper BEE [facility] 02-22-2022 10:47-0400 Systolic blood pressure 132 mm[Hg] Jasper BEE [facility] Encounters Encounter Date Encounter Type Care Provider Facility Start: 05-28-2024 ambulatory Jasper Haroi ty:[facility] Start: 05-26-2023 End: 05-27-2023 ambulatory Jasper BEE Facility:[facility] Start: 05-26-2023 End: 05-26-2023 Patient encounter procedure Jasper BEE [facility] Start: 02-19-2023 End: 02-20-[address] JASPER BEE . Facility: Start: 01-07-2023 End: 01-08-2023 ambulatory Mary Beth WEIR Facility:[facility] Start: 01-07-2023 End: 01-07-2023 Patient encounter procedure Mary Beth WEIR [facility] [place] Start: 12-18-2022 End: 12-19-[address] MARY BETH WEIR . Facility: Start: 11-26-2022 End: 12-05-[address] ALANIS SALEEM . Facility: Start: 11-22-2022 End: 11-23-2022 ambulatory Alanis Saleem Facility:[facility] Start: 11-22-2022 End: 11-22-2022 Patient encounter procedure Mary Beth WEIR [facility] Start: 11-15-2022 ambulatory Mary Beth WEIR Facility :[facility] Start: 11-14-2022 End: 11-14-[address] ALANIS SALEEM . Facility:[facility] Start: 11-13-2022 End: 11-14-[address] ALANIS SALEEM . Facility: Start: 06-11-2022 End: 06-12-[address] ALANIS SALEEM . Facility:[facility] Start: 03-01-2022 End: 03-02-[address] JASPER BEE . Facility: Start: 02-22-2022 End: 02-22-2022 Patient encounter procedure Jasper BEE [facility] Procedures Date Procedure Procedure Detail Performing Clinician Start: 12-18-2022 Colonoscopy Mary Beth LIRIANO Start: 11-13-[address] ANNA SALEEM . Comment on above: Performed By: #### P ANU CASILLAS #### [facility] [address] [place] [address] Dr. Gianna Rodgers Start: 03-01-2021 Extracorporeal shock wave lithotripsy of calculus of kidney Jasper BEE Start: 05-04-2019 Cystoscopic removal of ureteric stent Jasper BEE Start: 04-29-2019 Lithotripsy using laser Jasper BEE Comment on above: Cysto, sridevi rg, sridevi u reteroscopy, UD, holmium laser, basket extraction, bilateral stent placement Hernia repair Jasper BEE Repair of left ingui nal hernia [facility] WE[facility] Immunizations Immunization Date Immunization Notes Care Provider Fa cility 01-16-2021 SARS-CoV-2 (COVID-19 ) mRNA BNT-162b2 vax Jasper BEE [facility] 12-27-2020 SARS-CoV-2 (COVID-19 ) mRNA BNT-162b2 vax [facility] [place] NEGATED: Highlighted row has not occurred!11-22-2022 influenza virus vaccine, unspecified formulation Mary Beth [facility] [place] Payers Date Payer Category Payer Private Health Insurance [id number] 1960 Medicare [id number] 1960 Medicare [id number] 1955 Unknown [id number] 2.16.84 [id number] 1954 Unknown [id number] 2.16.84 [id number] 1954 Unknown [id number] 2.16.84 [id number] 1954 Unknown [id number] 2.16.84 [id number] 1954 Unknown [id number] 2.16.84 [id number] 1954 Unknown [id number] 2.16.84 [id number] 1954 Unknown [id number] 2.16.84 [id number] 1954 Unknown [id number] 2.16.8 [id number] 1954 Unknown [id number] 2.16.8 [id number] 1954 Unknown [id number] 2.16.8 [id number] 1954 Unknown [id number] 2.16.8 [id number] 1954 Unknown [id number] 2.16.8 [id number] 1954 Unknown [id number] 2.16.8 [id number] Social History Date Type Detail Facility Start: 07-26-2019 End: 05-26-2023 Tobacco smoking status Never smoked tobacco (finding) [facility] Tobacco smoking status Never [facility] Sex Assigned At Male [facility] Functional Status Date Assessment Result Facility 05-26-2023 Functional Status N/A [facility] 11-22-2022 Functional Status N/A [facility] Discharge instructions 05-26-2023 Note Date & Type Note Facility 05-26-2023 Hospital Discharg e instructions Patient Education 05/26/2023 13:28:39 Dietary Guidelines to Help Prevent Kidney Stones Dietary Guidelines to Help Prevent Kidney Stones Kidney stones are deposits of minerals and salts that form inside your kidneys. Your risk of developing kidney stones may be greater depending on your diet, your lifestyle, the medicines you take, and whether you have certain medical conditions. Most people can lower their chances of developing kidney stones by following the instructions below. Your dietitian may give you more specific instructions depending on your overall health and the type of kidney stones you tend to develop. What are tips for following this plan? Reading food labels Choose foods with no salt added or low-salt labels. Limit your salt (sodium) intake to less than 1,500 mg a day. Choose foods with calcium for each meal and snack. Try to eat about 300 mg of calcium at each meal. Foods that contain 200 500 mg of calcium a serving include: ?8 oz (237 mL) of milk, wjegxjk-vxujiupzbtwx-hkolt milk, and calcium-fortifiedfruit juice. Calcium-fortified means that calcium has been added to these drinks. ?8 oz (237 mL) of kefir, yogurt, and soy yogurt. ?4 oz (114 g) of tofu. ?1 oz (28 g) of cheese. ?1 cup (150 g) of dried figs. ?1 cup (91 g) of cooked broccoli. ?One 3 oz (85 g) can of sardines or mackerel. Most people need 1,000 1,500 mg of calcium a day. Talk to your dietitian about how much calcium is recommended for you. Shopping Buy plenty of fresh fruits and vegetables. Most people do not need to avoid fruits and vegetables, even if these foods contain nutrients that may contribute to kidney stones. When shopping for convenience foods, choose: ?Whole pieces of fruit. ?Pre-made salads with dressing on the side. ?Low-fat fruit and yogurt smoothies. Avoid buying frozen meals or prepared deli foods. These can be high in sodium. Look for foods with live cultures, such as yogurt and kefir. Choose high-fiber grains, such as whole-wheat breads, oat bran, and wheat cereals. Cooking Do not add salt to food when cooking. Place a salt shaker on the table and allow each person to add his or her own salt to taste. Use vegetable protein, such as beans, textured vegetable protein (TVP), or tofu, instead of meat in pasta, casseroles, and soups. Meal planning Eat less salt, if told by your dietitian. To do this: ?Avoid eating processed or pre-made food. ?Avoid eating fast food. Eat less animal protein, including cheese, meat, poultry, or fish, if told by your dietitian. To do this: ?Limit the number of times you have meat, poultry, fish, or cheese each week. Eat a diet free of meat at least 2 days a week. ?Eat only one serving each day of meat, poultry, fish, or seafood. ?When you prepare animal protein, cut pieces into small portion sizes. For most meat and fish, one serving is about the size of the palm of your hand. Eat at least five servings of fresh fruits and vegetables each day. To do this: ?Keep fruits and vegetables on hand for snacks. ?Eat one piece of fruit or a handful of berries with breakfast. ?Have a salad and fruit at lunch. ?Have two kinds of vegetables at dinner. Limit foods that are high in a substance called oxalate. These include: ?Spinach (cooked), rhubarb, beets, sweet potatoes, and Sammarinese chard. ?Peanuts. ?Potato chips, taiwanese fries, and baked potatoes with skin on. ?Nuts and nut products. ?Chocolate. If you regularly take a diuretic medicine, make sure to eat at least 1 or 2 servings of fruits or vegetables that are high in potassium each day. These include: ?Avocado. ?Banana. ?[place], prune, carrot, or tomato juice. ?Baked potato. ?Cabbage. ?Beans and split peas. Lifestyle Drink enough fluid to keep your urine pale yellow. This is the most important thing you can do. Spread your fluid intake throughout the day. If you drink alcohol: ?Limit how much you use to: ?0 1 drink a day for women who are not . ?0 2 drinks a day for men. ?Be aware of how much alcohol is in your drink. In the [place] one drink equals one 12 oz bottle of beer (355 mL), one 5 oz glass of wine (148 mL), or one 1 oz glass of hard liquor (44 mL). Lose weight if told by your health care provider. Work with your dietitian to find an eating plan and weight loss strategies that work best for you. General information Talk to your health care provider and dietitian about taking daily supplements. You may be told the following depending on your health and the cause of your kidney stones: ?Not to take supplements with vitamin C. ?To take a calcium supplement. ?To take a daily probiotic supplement. ?To take other supplements such as magnesium, fish oil, or vitamin B6. Take bwgj-lth-dybqfwf and prescription medicines only as told by your health care provider. These include supplements. What foods should I limit? Limit your intake of the following foods, or eat them as told by your dietitian. Vegetables Spinach. Rhubarb. Beets. Canned vegetables. Pickles. Olives. Baked potatoes with skin. Grains Wheat bran. Baked goods. Salted crackers. Cereals high in sugar. Meats and other proteins Nuts. Nut butters. Large portions of meat, poultry, or fish. Salted, precooked, or cured meats, such as sausages, meat loaves, and hot dogs. Dairy Cheese. Beverages Regular soft drinks. Regular vegetable juice. Seasonings and condiments Seasoning blends with salt. Salad dressings. Soy sauce. Ketchup. Barbecue sauce. Other foods Canned soups. Canned pasta sauce. Casseroles. Pizza. Lasagna. Frozen meals. Potato chips. Malawian fries. The items listed above may not be a complete list of foods and beverages you should limit. Contact a dietitian for more information. What foods should I avoid? Talk to your dietitian about specific foods you should avoid based on the type of kidney stones you have and your overall health. Fruits Grapefruit. The item listed above may not be a complete list of foods and beverages you should avoid. Contact a dietitian for more information. Summary Kidney stones are deposits of minerals and salts that form inside your kidneys. You can lower your risk of kidney stones by making changes to your diet. The most important thing you can do is drink enough fluid. Drink enough fluid to keep your urine pale yellow. Talk to your dietitian about how much calcium you should have each day, and eat less salt and animal protein as told by your dietitian. This information is not intended to replace advice given to you by your health care provider. Make sure you discuss any questions you have with your health care provider. Document Revised: 06/10/2022 Document Reviewed: 06/10/2022 [employer] Patient Education 2022 [employer]. Follow Up Care 02/22/2022 11:51:46 With:GAEL KRISHNAMURTHY, Jasper Panchal, EDWINL Address: [facility] [address], [place] [phone]- [phone] When:Within 1 Year(s) Comments:JOAN [facility] Clinical Note 12-18-2022 Note Date & Type Note Facility 12-18-2022 Note OPERATIVE NOTE OPERATION DATE: 12/18/2022 PREOPERATIVE DIAGNOSIS: Positive fecal occult blood. POSTOPERATIVE DIAGNOSIS: Sigmoid diverticulosis as well as 3 mm descending and sigmoid colon polyp. PROCEDURE: Colonoscopy to cecum with cold forceps polypectomy x2. SURGEON: Mary Beth Weir M.D. ANESTHESIA: Monitored anesthesia care. ESTIMATED BLOOD LOSS: Less than 1 mL. INDICATIONS AND CONSENT: Patient is a 67-year-old male recently found to have fecal occult positive stool. Indications, risks, benefits, alternatives of proceeding with colonoscopy were explained extensively to the patient, including the risks of bleeding, colon perforation or anesthetic complications. All of his questions were answered. Informed consent was obtained. PROCEDURE: Patient brought to the operating room, placed in the left lateral decubitus position. Monitored anesthesia care was provided. Rectal exam was performed which showed no masses or blood. The scope was inserted into the anal canal. Under direct visualization was advanced. It was advanced to the cecum where cecal markings were clearly identified. Upon withdrawal of the scope, mucosal surfaces were carefully examined. There were no mass lesions or inflammatory changes. In the descending colon, there was noted to be a 3 mm sessile polyp around a fold that was removed with cold biopsy forceps with good hemostasis. There was moderate sigmoid diverticulosis without inflammatory changes or scarring. Within the distal sigmoid, there was noted to be an additional 3 mm polyp that was removed with cold biopsy forceps with good hemostasis. The scope was retroflexed in the anal canal. There were prominent rectal veins, small internal and external hemorrhoids, no active bleeding. The scope was then withdrawn. Patient tolerated procedure well, was sent to recovery room in good condition. CC: Alanis Saleem M.D. [facility] Clinical Note 11-22-2022 Note Date & Type Note Facility 11-22-2022 Note Chief Complaint consultation for positive occult stool HPI Staff 67 year old male presents on consultation from Dr. Hoy for positive occult stool. Denies abdominal or rectal pain. No rectal bleeding or change in bowel habits. Denies nausea or vomiting. No unexplained weight loss. Never had colonoscopy in the past. No known family history of colon cancer. History of Present Illness 67 yo male with h/o htn, GERD, BPH, referred for positive fecal occult blood; denies change in bms or gross blood in stools, no abd complaints; no previous colonoscopy; abd operations significant for cholecystectomy; no asa or NSAID use, no SBE prophylaxis; no fmhx of GI malignancy or IBD; no tobacco use. Review of Systems PHQ Score Initial Depression Screen Score: 0 ROS - Provider Constitutional: no fever, no sweats, no weight loss. Eyes: no glasses, no blurred vision, no visual loss. ENMT: no dentures, no hoarseness, no swallowing difficulties, no hearing loss, no ear infection(s), no nose bleeds. Cardiovascular: normal blood pressure, no chest pain, regular heartbeat, no heart murmur. Respiratory: no shortness of breath, no cough, no asthma, no wheezing. Gastrointestinal: no nausea, no vomiting, no diarrhea, no constipation, no blood in stool, no change in bowel habits, no abdominal pain, no hepatitis. Genitourinary: no kidney stones, no urine infection, no dysuria. Musculoskeletal: no pain, no weakness. Skin: no changing moles, no rash, no skin lumps. Neurologic: no seizures, no epilepsy, no headache. Psychiatric: no emotional or psychiatric problem. Heme/Lymph: no bleeding problems, no anemia, no blood clots, no transfusions. Allergy/Immunologic: no swollen lymph nodes/glands, no IV drug abuse. Other: Additional ROS info: Except as noted in the above Review of Systems and in the History of Present Illness, all other systems have been reviewed and are negative or noncontributory. Physical Exam Vitals & Measurements HR: 72(Peripheral) RR: 16 BP: 152/96 HT: 68 in HT: 172.72 cm WT: 97.3 kg WT: 214.06 lb BMI: 32.62 HEENT: normal conjunctiva, sclera clear, no scleral icterus, EOM intact, PERRLA, oral mucosa moist without lesions. Neck: trachea midline, no mass, symmetric, no thyromegaly or nodules, no adenopathy Respiratory: lungs CTA, respirations non labored. Cardiovascular: regular rate and rhythm, no murmur, no pedal edema or varicosities. Gastrointestinal: obese, soft, non distended, no tenderness, no masses, no palpable hernias, diastasis recti no, no hepatosplenomegaly; normal bs Lymphatic: no cervical adenopathy, no supraclavicular adenopathy Musculoskeletal: normal gait, digits and nails without infection, nodes, cyanosis, clubbing. Skin: no rashes, no lesions, no ulcers, no subcutaneous nodules, induration. Psychiatric/Neuro: oriented to time, place, person, judgement normal, affect appropriate for age, insight intact, no focal deficits. Tests: labs reviewed, review of old records completed, Discussed surgical options, risks, and possible complications with patient. Assessment/Plan 1. Positive fecal occult blood test (R19.5: Other fecal abnormalities) plan colonoscopy under anesthesia for further evaluation, informed consent obtained. Follow-up No qualifying data available Problem List/Past Medical History Ongoing BMI 32.0-32.9,adult Cholelithiasis Diverticulosis Elevated PSA Enlarged prostate with urinary obstruction GERD (gastroesophageal reflux disease) Hydronephrosis with ureteral calculus Hypertension Kidney stone Nocturia Positive fecal occult blood test Pre-diabetes Seasonal allergic rhinitis Historical No qualifying data Procedure/Surgical History ESWL of kidney (03/01/2021), Cystoscopic removal of ureteric stent (05/04/2019), Lithotripsy using laser (04/29/2019), Repair of left inguinal hernia. Medications finasteride 5 mg Tab, 5 mg= 1 tab(s), Oral, Daily Metoprolol tartrate 50 mg Tab, 50 mg= 1 tab(s), Oral, BID Pantoprazole [address] Tab, 40 mg= 1 tab(s), Oral, Daily tamsulosin 0.4 mg Cap, 0.4 mg= 1 cap(s), Oral, BID, 3 refills Allergies No Known Allergies No Known Medication Allergies Social History Alcohol Current, 1-2 times per year, 04/30/2019 Substance Abuse - Denies Substance Abuse, 11/22/2022 Tobacco Never (less than 100 in lifetime) Tobacco Use:. Never Smokeless Tobacco Use:., 11/22/2022 Family History Aneurysm: Father. Diabetes: Mother. Diabetes mellitus type 2: Mother. Heart disease: Mother. Hyperlipidemia: Father. Hypertension: Father. Myocardial infarct: Father. Immunizations Vaccine Date Status Comments influenza virus vaccine, inactivated - Not Given Patient Refuses SARS-CoV-2 (COVID-19) mRNA BNT-162b2 vax 01/16/2021 Recorded SARS-CoV-2 (COVID-19) mRNA BNT-162b2 vax 12/27/2020 Recorded [facility] Comment on above: Result Comment: Elec tronically Signed By: NAJMA KRISHNAMURTHY, Mary Beth Galvez\Date and Time Signed: 11/22/22 13:28 EST Hospital Discharge instructions 02-22-2022 Note Date & Type Note Facility 02-22-2022 Hospital Discharg e instructions Patient Education 02/22/2022 08:11:52 Kidney Stones, Mmkw-iq-Dimp Kidney Stones Kidney stones are rock-like masses that form inside of the kidneys. Kidneys are organs that make pee (urine). A kidney stone may move into other parts of the urinary tract, including: The tubes that connect the kidneys to the bladder (ureters). The bladder. The tube that carries urine out of the body (urethra). Kidney stones can cause very bad pain and can block the flow of pee. The stone usually leaves your body (passes) through your pee. You may need to have a doctor take out the stone. What are the causes? Kidney stones may be caused by: A condition in which certain glands make too much parathyroid hormone (primary hyperparathyroidism). A buildup of a type of crystals in the bladder made of a chemical called uric acid. The body makes uric acid when you eat certain foods. Narrowing (stricture) of one or both of the ureters. A kidney blockage that you were born with. Past surgery on the kidney or the ureters, such as gastric bypass surgery. What increases the risk? You are more likely to develop this condition if: You have had a kidney stone in the past. You have a family history of kidney stones. You do not drink enough water. You eat a diet that is high in protein, salt (sodium), or sugar. You are overweight or very overweight (obese). What are the signs or symptoms? Symptoms of a kidney stone may include: Pain in the side of the belly, right below the ribs (flank pain). Pain usually spreads (radiates) to the groin. Needing to pee often or right away (urgently). Pain when going pee (urinating). Blood in your pee (hematuria). Feeling like you may vomit (nauseous). Vomiting. Fever and chills. How is this treated? Treatment depends on the size, location, and makeup of the kidney stones. The stones will often pass out of the body through peeing. You may need to: Drink more fluid to help pass the stone. In some cases, you may be given fluids through an IV tube put into one of your veins at the hospital. Take medicine for pain. Make changes in your diet to help keep kidney stones from coming back. Sometimes, medical procedures are needed to remove a kidney stone. This may involve: A procedure to break up kidney stones using a beam of light (laser) or shock waves. Surgery to remove the kidney stones. Follow these instructions at home: Medicines Take lnoi-ron-bwujyoz and prescription medicines only as told by your doctor. Ask your doctor if the medicine prescribed to you requires you to avoid driving or using heavy machinery. Eating and drinking Drink enough fluid to keep your pee pale yellow. You may be told to drink at least 8 10 glasses of water each day. This will help you pass the stone. If told by your doctor, change your diet. This may include: ?Limiting how much salt you eat. ?Eating more fruits and vegetables. ?Limiting how much meat, poultry, fish, and eggs you eat. Follow instructions from your doctor about eating or drinking restrictions. General instructions Collect pee samples as told by your doctor. You may need to collect a pee sample: ?24 hours after a stone comes out. ?8 12 weeks after a stone comes out, and every 6 12 months after that. Strain your pee every time you pee (urinate), for as long as told. Use the strainer that your doctor recommends. Do not throw out the stone. Keep it so that it can be tested by your doctor. Keep all follow-up visits as told by your doctor. This is important. You may need follow-up tests. How is this prevented? To prevent another kidney stone: Drink enough fluid to keep your pee pale yellow. This is the best way to prevent kidney stones. Eat healthy foods. Avoid certain foods as told by your doctor. You may be told to eat less protein. Stay at a healthy weight. Where to find more information National Kidney Foundation (NKF): www.kidney.org [facility] (UCF): www.urologyhealth.org Contact a doctor if: You have pain that gets worse or does not get better with medicine. Get help right away if: You have a fever or chills. You get very bad pain. You get new pain in your belly (abdomen). You pass out (faint). You cannot pee. Summary Kidney stones are rock-like masses that form inside of the kidneys. Kidney stones can cause very bad pain and can block the flow of pee. The stones will often pass out of the body through peeing. Drink enough fluid to keep your pee pale yellow. This information is not intended to replace advice given to you by your health care provider. Make sure you discuss any questions you have with your health care provider. Document Released: 03/17/2009 Document Revised: 02/15/2020 Document Reviewed: 02/15/2020 [employer] Patient Education 2020 [employer]. Follow Up Care 03/20/2021 09:44:29 With:GAEL KRISHNAMURTHY, Jasper Panchal, URL Address: [facility] [address], [place] [address]- When: Unknown [facility] Evaluation + Plan note Note Date & Type Note Facility Evaluation + Plan note Future Appointments Appointment Date:02/24/2023 11:15:00 AM Scheduled Provider:Jasper BEE MD Location:[facility] Appointment Type:URO Office Visit [facility] Evaluation + Plan note Note Date & Type Note Facility Evaluation + Plan note Future Appointments Appointment Date:05/28/2024 10:15:00 AM Scheduled Provider:Jasper BEE MD Location:[facility] Appointment Type:URO Office Visit [facility] Hospital course Narrative Note Date & Type Note Facility Hospital course Narrative No data available for this section [facility] Hospital Discharge instructions Note Date & Type Note Facility Hospital Discharge instructions No data available for this section General Surgery [facility] Progress note Note Date & Type Note Facility Progress note No data available for this section General Surgery [facility] Summary Purpose Family History No Family History Records FoundNo Family History Records Found Advance Directives No Advanced Directives Records FoundNo Advanced Directives Records Found Additional Source Comments Patient Care team informatio n (unrecognized section and content) Personnel Name: Alanis Saleem MD Address: Address: [address] [place] [address] Personnel Name: Alanis Saleem MD Address: Address: [address] [place] [address] Personnel Name: Alanis Saleem MD Address: Address: [address] [place] [address] (unrecognized sect ion and content) No Status Records FoundNo Status Records Found INFORMATION SOURCE (unrecogn ized section and content) DATE CREATED AUTHOR 02/23/2023 [facility] DATE CREATED AUTHOR AUTHOR'S ORGANIZ ATION 05/30/2023 [facility] FOR RECORDS PERTAINING TO PATIENTS WHO ARE OR HAVE BEEN ENROLLED IN A CHEMICAL DEPENDENCY/SUBSTANCEABUSE PROGRAM, SOME INFORMATION MAY BE OMITTED. This clinical summary was aggregated from multiple sources. Caution should be exercised in using it in the provision of clinical care. This summary normalizes information from multiple sources, and as a consequence, information in this document may materially change the coding, format and clinical context of patient data. In addition, data may be omitted in some cases. CLINICAL DECISIONS SHOULD BE BASED ON THE PRIMARY CLINICAL RECORDS. [facility] [employer] [facility]. provides no warranty or guarantee of the accuracy or completeness of information in this document.
[2024-04-02 12:14] LABS: Basophils Absolute Auto 0.1 10^3/uL (0.0-0.1); Basophils Percent Auto 1.1 % (0.2-2.0); Eosinophils Absolute Auto 0.2 10^3/uL (0.0-0.7); Eosinophils Percent Auto 3.1 % (0.9-7.0); Hematocrit 50.1 % (42.0-54.0); Hemoglobin 16.7 g/dL (14.0-18.0); Immature Granulocytes Abs Auto 0.01 10^3/uL (0.00-0.03); Immature Granulocytes Pct Auto 0.2 % (0.0-0.5); Lymphocytes Absolute Auto 1.6 10^3/uL (1.2-3.8); Lymphocytes Percent Auto 25.4 % (20.5-60.0); Mean Corpuscular HGB Conc 33.3 g/dL (29.9-35.2); Mean Corpuscular Hemoglobin 29.2 pg (25.9-34.0); Mean Corpuscular Volume 87.6 fL (80.0-94.0); Mean Platelet Volume 10.6 fL (9.5-13.5); Monocytes Absolute Auto 0.5 10^3/uL (0.3-0.8); Monocytes Percent Auto 7.8 % (1.7-12.0); Neutrophils Absolute Auto 3.8 10^3/uL (1.4-6.5); Neutrophils Percent Auto 62.4 % (43.0-75.0); Platelet Count 270 10^3/uL (150-450); Red Blood Count 5.72 10^6/uL (4.70-6.10); Red Cell Distribution Width 14.2 % (11.0-15.0); White Blood Count 6.1 10^3/uL (4.0-11.0)
[2024-04-02 12:47] LABS: Estimated Average Glucose 111 mg/dL; Glycohemoglobin A1C 5.5 % (4.5-6.2)
[2024-04-02 12:58] LABS: Alanine Aminotransferase 28 U/L (16-63); Albumin Globulin Ratio 1.1; Albumin Level 3.8 g/dL (3.4-5.0); Alkaline Phosphatase 73 U/L (46-116); Anion Gap 12.5; Aspartate Amino Transferase 13 U/L (15-37); Bilirubin Total 1.8 mg/dL (0.2-1.0); Calcium 9.2 mg/dL (8.5-10.1); Carbon Dioxide 27.4 mmol/L (21.0-32.0); Chloride 104 mmol/L (98-107); Chol HDL Ratio 3.1; Cholesterol 224 mg/dL (<=200); Estimated GFR (African America >60 (>=60); Estimated GFR (Non-African Ame 58 (>=60); Free T3 2.91 pg/mL (2.18-3.98); Globulin 3.4 g/dL; Glucose 121 mg/dL (74-106); HDL Cholesterol 73 mg/dL (40-60); Potassium 3.9 mmol/L (3.5-5.1); Sodium 140 mmol/L (136-145); Thyroid Stimulating Hormone 0.768 uIU/mL (0.358-3.740); Total Protein 7.2 g/dL (6.4-8.2); Triglycerides 91 mg/dL (<=150); VLDL CHOLESTEROL 18.2 mg/dL
== END 2024-04-02 11:25 | disposition home or self-care (01) ==
LOC: LAB 11:27
PROVIDERS: PCP Family Medicine; Visit Provider Family Medicine
DX: K21.9 Gastro-esophageal reflux disease without esophagitis (principal); I10 Essential (primary) hypertension; E11.8 Type 2 diabetes mellitus with unspecified complications; N40.0 Benign prostatic hyperplasia without lower urinary tract symptoms; E78.5 Hyperlipidemia, unspecified
CPT/HCPCS: 36415; 80053; 80061; 83036; 84436; 84443; 84481; 85025

== ENCOUNTER 2024-05-26 11:09 | Outpatient (OUT) | payer MEDICARE, SELFPAY ==
--- NOTE | 2024-05-26 11:21 | XR_ITS ---
The [address] [address] Patient Name: GIL ALMEIDA MRN: [id number] date: 1955 Sex: M Assigned Patient Location: [facility] Current Patient Location: Accession/Order Number: [id number] Exam Date: 05/26/2024 11:15 Report Date: 05/31/2024 07:22 At the request of: DENA MAYO Procedure: XR abdomen 1V EXAMINATION: XR abdomen 1V HISTORY: Kidney Stone N20.0 COMPARISON: No relevant comparison available. FINDINGS: KIDNEY/URETER - RIGHT: Punctate nephrolithiasis KIDNEY/URETER - LEFT: Punctate nephrolithiasis PELVIS: No visible ureteral calcifications. Any visible calcifications favor phleboliths. BOWEL: No abnormal dilation or deviation. BONES: No acute abnormality. Moderate degenerative changes OTHER: Negative. No abnormal gaseous collections. XR/XR abdomen 1V IMPRESSION: Bilateral nephrolithiasis Electronically authenticated by: ANABELL PAYTON Date: 05/31/2024 07:22
--- OUTSIDE RECORDS SUMMARY | 2024-05-26 11:26 | XMS_ITS | CCD ---
[facility] Providers Care Engineering Associate Name Role Phone Alanis Saleem Primary Care [...] Unavailable BEE ., DR FERNANDES Consulting Unavailable ARIZAMONET RichardsIN Consulting Unavailable HOY ., DR THAPA Admitting [...] Unavailable BEE ., DR FERNANDES Consulting Unavailable ZIFLORENTINO, DR JAIRO Panchal Consulting Unavailable Jasper BEE Attending Unavailable Jasper BEE Attending Unavailable Allergies Allergy Classification Reported Allergen(s) Allergy Type Date of Onset Reaction(s) Facility (1 source) bee venom Drug allergy (disorder) [facility] Repository (1 source) No Known Medication Allergies; Translations: [No Known Medication Allergies] Propensity to adverse reactions (disorder) [facility] Repository Medications Current Medications Medication Drug Class(es) [...] # 180 cap(s), Refills(s) 3, Pharmacy: [facility] Start Date: 07/26/19 Status: Ordered [...] 3 Chronic Other aftercare (1 source) Other medical terminologist (current) drug therapy; Translations: [OTH [facility] CURRENT DRUG THERAPY] Onset: 3 Episodic Other [...] Test Name Value Interpretation Reference Range Facility Ambulatory Visit Summaryon 0 05-26-2023 Ambulatory Visit Summary JUAN PABLO GIL H :1955 Visit Date:05/26/2023 Ambulatory Visit Instructions Your Diagnosis BPH with elevated PSA Kidney stone Renal cyst History of kidney stones Bladder stones Tests Performed Urnls Dip Stick Auto w/o Microscopy POC 08977 XR Abdomen 1 View -- Results Pending -- Please visit your patient portal for your results or contact your primary care physician. Your Care Team Attending Physician - GAEL KRISHNAMURTHY, Jasper Panchal Primary Care Physician - Alanis Saleem [...] JOAN Where: [facility] [address], [place] [address]- [phone] Medications What How Much When Instructions Unchanged [...] Urnls Dip Stick Auto w/o Microscopy POC 89634 (05/26/2023) Bilirubin Urine Dipstick - Negative Blood Urine Dipstick - Negative Glucose Urine Dipstick - Negative Ketones Urine Dipstick - Negative Leukocytes Urine Dipstick - Negative Nitrite Urine Dipstick - Negative Protein Urine Dipstick - Negative Specific [place] Urine Dipstick - 1.020 Urine Appearance Urine [...] cultures, such (more content not included)... Normal [facility] Patient Educationon 05-26-20 Patient Education Nephrology Dietary [...] Spinach (cooked), rhubarb, beets, sweet potatoes, and [place] chard. ? Peanuts. ? Potato chips, lao fries, and baked potatoes with skin on. ? Nuts and nut products. ? Chocolate. ? If you regularly take a diuretic medicine, make sure to eat at least 1 or 2 servings of fruits or vegetables that are high in potassium each day. These include: ? Avocado. ? Banana. ? Bates, prune, carrot, or tomato juice. ? Baked [...] fish oil, or vitamin B6. ? Take sczp-eiu-kpuvvic and prescription medicines only as told by your health care provider. These include supplements. What foods should I limit? Limit your in (more content not included)... Normal [facility] Reminderson 05-26-2023 Reminders - From: Edilia Silva To: KIKA - Recalls Bee; Sent: 05/26/2023 17:01:54 EDT Show up: 04/25/2024 17:01:00 EDT Subject: KUB prior to appt Reminder Message Please Remember to:_have pt get KUB done prior to appt. Normal [facility] Urology Office/Clinic Noteon 05-26-2023 Urology Office/Clinic Note [...] Left ESWL 03/01/21 [1] KUB 02/19/23 at [facility] showed stable, tiny left renal calcifications CT AP w con done 03/06/23 at [facility] showed nonobstructing bilateral renal stones and 2 [...] CT AP w con done 03/06/23 at [facility] showed a 10 cm right superior pole [...] CT AP w con done 03/06/23 at [facility] showed 2 adjacent 4mm stones within posterior R bladder. he should pass these. Follow-up With When Contact Information GAEL KRISHNAMURTHY, AYUSH Adams In 1 year [facility] [address] , [place] [address] [phone] Additional Instructions: KUB Patient Education Dietary Guidelines to Help Prevent Kidney Stones I, Edilia Silva, personally scribed for Dr. Bee on 05/26/2023 [...] blood test Pre-diabete (more content not included)... Normal [facility] Comment on above: Result Comment: Elec tronically Signed By: Jasper BEE MD\.br\Date and Time Signed: 05/26/23 13:32 EDT\.br\Electronically Co-Signed By: Edilia Silva\.br\Date and Time Co-Signed: 05/26/23 13:30 EDT XR KUB 1 VIEWon 02-20-2023 XR KUB [...] by: JAIRO WAN Date: 2023-02-20 07:16 Normal [facility] TESS by IFAon 11-18-2022 Antinuclear Antibodies, IFA Negative Normal [facility] Comment on above: Result Comment: Nega tive <1:80 Borderline 1:80 Positive >1:80 ICAP nomenclature: AC-0 For more information about Hep-2 cell patterns use ANApatterns.org, the official website for the International Consensus on Antinuclear Antibody (TESS) Patterns (ICAP). Performed By: #### A NAIFA #### [facility] [address] [place] [address] Dr. Gianna Rodgers ANTISTREPTOLYSIN O AB (ASO)o n 11-14-2022 Antistreptolysin O Ab 26.9 IU/mL Normal 0.0-200.0 [facility] Comment on above: Performed By: #### A SOAB #### [facility] [address] [place] [address] Dr. Gianna Rodgers INSULINon 11-14-2022 Insulin 17.4 uIU/mL Normal 2.6-24.9 [facility] Comment on above: Performed By: #### P SASC, VITAD #### [facility] [address] [place] [address] Dr. Gianna Rodgers LYME DISEASE AB EIA W REFLEX on 11-14-2022 Lyme Total Antibody,EIA Negative Normal Negative [facility] Comment on above: Result Comment: Lyme antibodies [...] Performed By: #### P SASC, VITAD #### [facility] [address] [place] [address] Dr. Gianna Rodgers OCC BLD IMMUNO SCREENon OCCULT BLOOD Positive Abnormal NEGATIVE [facility] Comment on above: Performed By: #### P SASC, VITAD #### [facility] [address] [place] [address] Dr. Gianna Rodgers RHEUMATOID FACTORon 11-14-19 RA Latex Turbid. <10.0 Normal <14.0 [facility] Comment on above: Performed By: #### P SONJA VITAD #### [facility] [address] [place] [address] Dr. Gianna Rodgers TESTOSTERONE, TOTALon 2022 Testosterone [Mass/Vol] 329 ng/dL Normal 264-916 [facility] Comment on above: Result Comment: Adul t male reference interval is based on a population of healthy nonobese males (BMI <30) between 19 and 39 years old. Karen et.al. JCEM 2017,102;2692-8105. PMID: [id number]. Performed By: #### P SASC, VITAD #### [facility] [address] [place] [address] Dr. Gianna Rodgers CBC AUTO DIFFon 11-13-2022 BASO # 0.0 103/ul Normal 0.0-0.1 [facility] Comment on above: Performed By: #### P SASC, VITAD #### [facility] [address] [place] [address] Dr. Gianna Rodgers Basophils/100 WBC (Bld) 0.4 % Normal 0.2-2.0 [facility] Comment on above: Performed By: #### P SASC, VITAD #### [facility] [address] [place] [address] Dr. Gianna Rodgers EO # 0.1 103/ul Normal 0.0-0.7 [facility] Comment on above: Performed By: #### P SASC, VITAD #### [facility] [address] [place] [address] Dr. Gianna Rodgers Eosinophils/100 WBC (Bld) 1.0 % Normal 0.9-7.0 [facility] Comment on above: Performed By: #### P SASC, VITAD #### [facility] [address] [place] [address] Dr. Gianna Rodgers Erythrocyte distribution width (RBC) [Ratio] 13.8 % Normal 11.0-15.0 [facility] Comment on above: Performed By: #### P SASC, VITAD #### [facility] [address] [place] [address] Dr. Gianna Rodgers Hematocrit (Bld) [Volume fraction] 48.1 % Normal 42.0-54.0 [facility] Comment on above: Performed By: #### P SASC, VITAD #### [facility] [address] [place] [address] Dr. Gianna Rodgers Hemoglobin (Bld) [Mass/Vol] 15.8 g/dL Normal 14.0-18.0 [facility] Comment on above: Performed By: #### P SASC, VITAD #### [facility] [address] [place] [address] Dr. Gianna Rodgers IG # 0.02 10e3/ul Normal 0.00-0.03 [facility] Comment on above: Performed By: #### P SASC, VITAD #### [facility] [address] [place] [address] Dr. Gianna Rodgers IG % 0.2 % Normal 0.0-0.5 [facility] Comment on above: Performed By: #### P SASC, VITAD #### [facility] [address] [place] [address] Dr. Gianna Rodgers LYMPH # 2.3 103/ul Normal 1.2-3.8 [facility] Comment on above: Performed By: #### P SASC, VITAD #### [facility] [address] [place] [address] Dr. Gianna Rodgers Lymphocytes/100 WBC (Bld) 24.0 % Normal 20.5-60.0 [facility] Comment on above: Performed By: #### P SASC, VITAD #### [facility] [address] [place] [address] Dr. Gianna Rodgers MANUAL DIFF REQ NO Normal [facility] Comment on above: Performed By: #### P SASC, VITAD #### [facility] [address] [place] [address] Dr. Gianna Rodgers MCH (RBC) [Entitic mass] 28.8 pg Normal 25.9-34.0 [facility] Comment on above: Performed By: #### P SASC, VITAD #### [facility] [address] [place] [address] Dr. Gianna Rodgers MCHC (RBC) [Mass/Vol] 32.8 g/dL Normal 29.9-35.2 [facility] Comment on above: Performed By: #### P SASC, VITAD #### [facility] [address] [place] [address] Dr. Gianna Rodgers MCV (RBC) [Entitic vol] 87.6 fL Normal 80.0-94.0 [facility] Comment on above: Performed By: #### P SASC, VITAD #### [facility] [address] [place] [address] Dr. Gianna Rodgers MONO # 0.8 103/ul Normal 0.3-0.8 [facility] Comment on above: Performed By: #### P SASC, VITAD #### [facility] [address] [place] [address] Dr. Gianna Rodgers Monocytes/100 WBC (Bld) 8.5 % Normal 1.7-12.0 [facility] Comment on above: Performed By: #### P ALBERTOC, VITAD #### [facility] [address] [place] [address] Dr. Gianna Rodgers NEUT # 6.2 103/ul Normal 1.4-6.5 [facility] Comment on above: Performed By: #### P ALBERTOC, VITAD #### [facility] [address] [place] [address] Dr. Gianna Rodgers Neutrophils/100 WBC (Bld) 65.9 % Normal 43.0-75.0 [facility] Comment on above: Performed By: #### P ALBERTOC, VITAD #### [facility] [address] [place] [address] Dr. Gianna Rodgers Platelet mean volume (Bld) [Entitic vol] 10.2 fL Normal 9.5-13.5 [facility] Comment on above: Performed By: #### P SONJA, VITAD #### [facility] [address] [place] [address] Dr. Gianna Rodgers PLT 304 103/ul Normal 150-450 [facility] Comment on above: Performed By: #### P SONJA, VITAD #### [facility] [address] [place] [address] Dr. Gianna Rodgers RBC 5.49 106/ul Normal 4.70-6.10 [facility] Comment on above: Performed By: #### P ALBERTOC, VITAD #### [facility] [address] [place] [address] Dr. Gianna Rodgers WBC 9.4 103/ul Normal 4.0-11.0 [facility] Comment on above: Performed By: #### P SASC, VITAD #### [facility] [address] [place] [address] Dr. Gianna Rodgers CRPon 11-13-2022 CRP [Mass/Vol] mg/L Normal <=1.0 [facility] Comment on above: Performed By: #### C RP, URIC, T7, CMP, LIPID, TSH #### [facility] [address] [place] [address] Dr. Gianna Rodgers FREE THYROXINE INDEX T7on FTI 2.56 Normal 1.30-4.50 [facility] Comment on above: Performed By: #### P SASC, VITAD #### [facility] [address] [place] [address] Dr. Gianna Rodgers T3U 35.0 % Normal 33.0-40.0 [facility] Comment on above: Performed By: #### P SASC, VITAD #### [facility] [address] [place] [address] Dr. Gianna Rodgers T4 [Mass/Vol] 7.30 ug/dL Normal 4.50-12.10 [facility] Comment on above: Performed By: #### P SASC, VITAD #### [facility] [address] [place] [address] Dr. Gianna Rodgers GLYCOHEMOGLOBIN A1Con 2022 ADA RECOMMENDATION SEE BELOW Normal [facility] Comment on above: Result Comment: ADA RECOMMENDED LIMIT 4.0 - 6.0 ADA THERAPEUTIC TARGET < 7.0 ACTION SUGGESTED > 7.0 Performed By: #### A 1C #### [facility] [address] [place] [address] Dr. Gianna Rodgers Glucose [Mass/Vol] 146 mg/dL Normal [facility] Comment on above: Performed By: #### A 1C #### [facility] [address] [place] [address] Dr. Gianna Rodgers HbA1c (Bld) [Mass fraction] 6.7 % Critically high 4.5-6.2 [facility] Comment on above: Performed By: #### A 1C #### [facility] [address] [place] [address] Dr. Gianna Rodgers LIPID PROFILEon 11-13-2022 CHOL-HDL RATIO NORM SEE BELOW Normal [facility] Comment on above: Result Comment: 3.3 - 4.4 LOW RISK 4.4 - 7.1 AVERAGE RISK 7.1 - 11.0 MODERATE RISK >11.0 HIGH RISK Performed By: #### P SASC, VITAD #### [facility] [address] [address] [address] Gianna Rodgers Cholesterol [Mass/Vol] 184 mg/dL Normal <=200 [facility] Comment on above: Performed By: #### P SASC, VITAD #### [facility] [address] [address] [address] Gianna Rodgers Cholesterol in HDL [Mass/Vol] 66 mg/dL Critically high 40-60 [facility] Comment on above: Performed By: #### P SASC, VITAD #### [facility] [address] [address] [address] Gianna Rodgers Cholesterol in LDL [Mass/Vol] 100.0 mg/dL Normal [facility] Comment on above: Performed By: #### P SASC, VITAD #### [facility] [address] [place] [address] Dr. Gianna Rodgers Cholesterol.total/Chol esterol in HDL [Mass ratio] 2.8 {ratio} Normal [facility] Comment on above: Performed By: #### P SASC, VITAD #### [facility] [address] [address] [address] Gianna Rodgers HDL NORMAL > or = 60 mg/dl - LOW CARDIOVASCULAR RISK <40 mg/dl - HIGH CARDIOVASCULAR RISK Normal [facility] Comment on above: Performed By: #### P SASC, VITAD #### [facility] [address] [address] [address] Gianna Rodgers LDL CALC NORMAL SEE BELOW Normal [facility] Comment on above: Result Comment: <100 mg/dl OPTIMAL 100 - 129 mg/dl NEAR OR ABOVE OPTIMAL 130 - 159 mg/dl BORDERLINE HIGH 160 - 189 mg/dl HIGH >190 mg/dl VERY HIGH Performed By: #### P SASC, VITAD #### [facility] [address] [address] [address] Gianna Rodgers Triglyceride [Mass/Vol] 90 mg/dL Normal <=150 [facility] Comment on above: Performed By: #### P SASC, VITAD #### [facility] [address] [address] [address] Gianna Rodgers VLDL CALC 18.0 mg/dL Normal [facility] Comment on above: Performed By: #### P SASC, VITAD #### [facility] [address] [place] [address] Dr. Gianna Rodgers PROF 14(COMP METB)on 023 Albumin [Mass/Vol] 3.8 g/dL Normal 3.4-5.0 [facility] Comment on above: Performed By: #### C RP, URIC, T7, CMP, LIPID, TSH #### [facility] [address] [place] [address] Dr. Gianna Rodgers Albumin/Globulin [Mass ratio] 1.2 {ratio} Normal [facility] Comment on above: Performed By: #### C RP, URIC, T7, CMP, LIPID, TSH #### [facility] [address] [place] [address] Dr. Gianna Rodgers ALP [Catalytic activity/Vol] 74 U/L Normal 46-116 [facility] Comment on above: Performed By: #### C RP, URIC, T7, CMP, LIPID, TSH #### [facility] [address] [place] [address] Dr. Gianna Rodgers ALT [Catalytic activity/Vol] 32 U/L Normal 16-63 [facility] Comment on above: Performed By: #### C RP, URIC, T7, CMP, LIPID, TSH #### [facility] [address] [place] [address] Dr. Gianna Rodgers Anion gap [Moles/Vol] 12.7 mmol/L Normal [facility] Comment on above: Performed By: #### C RP, URIC, T7, CMP, LIPID, TSH #### [facility] [address] [place] [address] Dr. Gianna Rodgers AST [Catalytic activity/Vol] 16 U/L Normal 15-37 [facility] Comment on above: Performed By: #### C RP, URIC, T7, CMP, LIPID, TSH #### [facility] [address] [place] [address] Dr. Gianna Rodgers Bilirubin [Mass/Vol] 2.1 mg/dL Critically high 0.2-1.0 [facility] Comment on above: Performed By: #### C RP, URIC, T7, CMP, LIPID, TSH #### [facility] [address] [address] [address] Gianna Rodgers Calcium [Mass/Vol] 9.5 mg/dL Normal 8.5-10.1 [facility] Comment on above: Performed By: #### C RP, URIC, T7, CMP, LIPID, TSH #### [facility] [address] [address] [address] Gianna Rodgers Chloride [Moles/Vol] 102 mmol/L Normal 98-107 [facility] Comment on above: Performed By: #### C RP, URIC, T7, CMP, LIPID, TSH #### [facility] [address] [address] [address] Gianna Rodgers CO2 [Moles/Vol] 27.7 mmol/L Normal 21.0-32.0 [facility] Comment on above: Performed By: #### C RP, URIC, T7, CMP, LIPID, TSH #### [facility] [address] [address] [address] Gianna Rodgers Creatinine [Mass/Vol] 1.08 mg/dL Normal 0.70-1.30 [facility] Comment on above: Performed By: #### C RP, URIC, T7, CMP, LIPID, TSH #### [facility] [address] [address] [address] Gianna Rodgers EGFR-AF CHADIAN >60 Normal >=60 [facility] Comment on above: Performed By: #### C RP, URIC, T7, CMP, LIPID, TSH #### [facility] [address] [address] [address] Gianna Rodgers EGFR-NON AF CHADIAN >60 Normal >=60 [facility] Comment on above: Performed By: #### C RP, URIC, T7, CMP, LIPID, TSH #### [facility] [address] [address] [address] Gianna Rodgers Globulin (S) [Mass/Vol] 3.2 g/dL Normal [facility] Comment on above: Performed By: #### C RP, URIC, T7, CMP, LIPID, TSH #### [facility] [address] [place] [address] Dr. Gianna Rodgers Glucose [Mass/Vol] 135 mg/dL Critically high 74-106 [facility] Comment on above: Performed By: #### C RP, URIC, T7, CMP, LIPID, TSH #### [facility] [address] [place] [address] Dr. Gianna Rodgers Potassium [Moles/Vol] 3.4 mmol/L Critically low 3.5-5.1 [facility] Comment on above: Performed By: #### C RP, URIC, T7, CMP, LIPID, TSH #### [facility] [address] [place] [address] Dr. Gianna Rodgers Protein [Mass/Vol] 7.0 g/dL Normal 6.4-8.2 [facility] Comment on above: Performed By: #### C RP, URIC, T7, CMP, LIPID, TSH #### [facility] [address] [place] [address] Dr. Gianna Rodgers Sodium [Moles/Vol] 139 mmol/L Normal 136-145 [facility] Comment on above: Performed By: #### C RP, URIC, T7, CMP, LIPID, TSH #### [facility] [address] [place] [address] Dr. Gianna Rodgers Urea nitrogen [Mass/Vol] 17.0 mg/dL Normal 7.0-18.0 [facility] Comment on above: Performed By: #### C RP, URIC, T7, CMP, LIPID, TSH #### [facility] [address] [place] [address] Dr. Gianna Rodgers Urea nitrogen/Creatinine [Mass ratio] 15.7 mg/mg Normal [facility] Comment on above: Performed By: #### C RP, URIC, T7, CMP, LIPID, TSH #### [facility] [address] [place] [address] Dr. Gianna Rodgers TSHon 11-13-2022 TSH 0.436 uIU/mL Normal 0.358-3.740 [facility] Comment on above: Performed By: #### P SASC, VITAD #### [facility] [address] [place] [address] Dr. Gianna Rodgers URIC ACID SERUMon 11-13-2022 Urate [Mass/Vol] 5.2 mg/dL Normal 3.5-7.2 [facility] Comment on above: Performed By: #### C RP, URIC, T7, CMP, LIPID, TSH #### [facility] [address] [place] [address] Dr. Gianna Rodgers VITAMIN D 25 OHon 11-13-2022 VIT D 25-OH 32.8 ng/mL Normal [facility] Comment on above: Performed By: #### P SASC, VITAD #### [facility] [address] [place] [address] Dr. Gianna Rodgers VIT D RANGES SEE BELOW Normal [facility] Comment on above: Result Comment: <20 ng/mL Vit D deficient 20 - <30 ng/mL Vit D insufficient 30 - 100 ng/mL Vit D sufficient >100 ng/mL Potential Toxicity Performed By: #### P SASC, VITAD #### [facility] [address] [place] [address] Dr. Gianna Rodgers LYME DISEASE AB EIA W REFLEX on 06-12-2022 Lyme Total Antibody,EIA Negative Normal Negative [facility] Comment on above: Result Comment: Lyme Antibody Negative No laboratory evidence of infection with B. burgdorferi (Lyme disease). Negative results may occur in patients recently infected (less than or equal to 14 days) with B. burgdorferi. If recent infection is suspected, repeat testing on a new sample collected in 7 to 14 days is recommended. Performed By: #### L YMA #### [facility] [address] [place] [address] Dr. Gianna Rodgers CBC AUTO DIFFon 06-11-2022 BASO # 0.1 103/ul Normal 0.0-0.1 [facility] Comment on above: Performed By: #### C BC #### [facility] [address] [place] [address] Dr. Gianna Rodgers Basophils/100 WBC (Bld) 0.7 % Normal 0.2-2.0 [facility] Comment on above: Performed By: #### C BC #### [facility] [address] [place] [address] Dr. Gianna Rodgers EO # 0.1 103/ul Normal 0.0-0.7 [facility] Comment on above: Performed By: #### C BC #### [facility] [address] [place] [address] Dr. Gianna Rodgers Eosinophils/100 WBC (Bld) 1.6 % Normal 0.9-7.0 [facility] Comment on above: Performed By: #### C BC #### [facility] [address] [place] [address] Dr. Gianna Rodgers Erythrocyte distribution width (RBC) [Ratio] 13.1 % Normal 11.0-15.0 [facility] Comment on above: Performed By: #### C BC #### [facility] [address] [place] [address] Dr. Gianna Rodgers Hematocrit (Bld) [Volume fraction] 45.2 % Normal 42.0-54.0 [facility] Comment on above: Performed By: #### C BC #### [facility] [address] [place] [address] Dr. Gianna Rodgers Hemoglobin (Bld) [Mass/Vol] 15.1 g/dL Normal 14.0-18.0 [facility] Comment on above: Performed By: #### C BC #### [facility] [address] [place] [address] Dr. Gianna Rodgers IG # 0.02 10e3/ul Normal 0.00-0.03 [facility] Comment on above: Performed By: #### C BC #### [facility] [address] [place] [address] Dr. Gianna Rodgers IG % 0.3 % Normal 0.0-0.5 [facility] Comment on above: Performed By: #### C BC #### [facility] [address] [place] [address] Dr. Gianna Rodgers LYMPH # 1.3 103/ul Normal 1.2-3.8 [facility] Comment on above: Performed By: #### C BC #### [facility] [address] [place] [address] Dr. Gianna Rodgers Lymphocytes/100 WBC (Bld) 16.7 % Critically low 20.5-60.0 [facility] Comment on above: Performed By: #### C BC #### [facility] [address] [place] [address] Dr. Ginana Rodgers MANUAL DIFF REQ NO Normal [facility] Comment on above: Performed By: #### C BC #### [facility] [address] [place] [address] Dr. Gianna Rodgers MCH (RBC) [Entitic mass] 29.0 pg Normal 25.9-34.0 [facility] Comment on above: Performed By: #### C BC #### [facility] [address] [place] [address] Dr. Ginana Rodgers MCHC (RBC) [Mass/Vol] 33.4 g/dL Normal 29.9-35.2 [facility] Comment on above: Performed By: #### C BC #### [facility] [address] [place] [address] Dr. Gianna Rodgers MCV (RBC) [Entitic vol] 86.9 fL Normal 80.0-94.0 [facility] Comment on above: Performed By: #### C BC #### [facility] [address] [place] [address] Dr. Gianna Rodgers MONO # 0.7 103/ul Normal 0.3-0.8 [facility] Comment on above: Performed By: #### C BC #### [facility] [address] [place] [address] Dr. Gianna Rodgers Monocytes/100 WBC (Bld) 8.7 % Normal 1.7-12.0 [facility] Comment on above: Performed By: #### C BC #### [facility] [address] [place] [address] Dr. Gianna Rodgers NEUT # 5.4 103/ul Normal 1.4-6.5 [facility] Comment on above: Performed By: #### C BC #### [facility] [address] [address] [address] Gianna Rodgers Neutrophils/100 WBC (Bld) 72.0 % Normal 43.0-75.0 [facility] Comment on above: Performed By: #### C BC #### [facility] [address] [address] [address] Gianna Rodgers Platelet mean volume (Bld) [Entitic vol] 9.4 fL Critically low 9.5-13.5 [facility] Comment on above: Performed By: #### C BC #### [facility] [address] [address] [address] Gianna Rodgers PLT 385 103/ul Normal 150-450 [facility] Comment on above: Performed By: #### C BC #### [facility] [address] [address] [address] Gianna Rodgers RBC 5.20 106/ul Normal 4.70-6.10 [facility] Comment on above: Performed By: #### C BC #### [facility] [address] [address] [address] Gianna Rodgers WBC 7.5 103/ul Normal 4.0-11.0 [facility] Comment on above: Performed By: #### C BC #### [facility] [address] [place] [address] Dr. Gianna Rodgers CRPon 06-11-2022 CRP 3.8 mg/dL Critically high <=1.0 [facility] Comment on above: Performed By: #### P SASC, VITAD #### [facility] [address] [address] [address] Gian[facility] 46 mm/hr Critically high <=20 [facility] Comment on above: Performed By: #### P SASC, VITAD #### [facility] [address] [address] [address] Gianna Rodgers XR KUB 1 VIEWon 05-20-2022 XR KUB 1 VIEW EXAM: XR KUB [...] by: MEÑO ARIZA Date: 2022-03-01 16:28 Normal [facility] Vital Signs Date Time Vital Sign Value Performing Clinician Ekaterina shankar 05-26-2023 12:36-0400 Diastolic blood pressure 100 mm[Hg] Jasper BEE [facility] 05-26-2023 12:36-0400 Mean blood pressure 117 mm[Hg] Jasper BEE [facility] 05-26-2023 12:36-0400 Systolic blood pressure 150 mm[Hg] Jasper BEE [facility] 05-26-2023 12:25-0400 Blood Pressure Location Jasper BEE [facility] 05-26-2023 12:25-0400 Diastolic blood pressure 91 mm[Hg] Jaspre BEE [facility] 05-26-2023 12:25-0400 Heart rate 80 /min Jasper BEE [facility] 05-26-2023 12:25-0400 Systolic blood pressure 162 mm[Hg] Jasper BEE [facility] 11-22-2022 13:01-0500 Blood Pressure Location Mary Beth WEIR [facility] 11-22-2022 13:01-0500 Diastolic blood pressure 96 mm[Hg] Mary Beth HUANGL [facility] [place] 11-22-2022 13:01-0500 Heart rate 72 /min Mary Beth HUANGL [facility] [place] 11-22-2022 13:01-0500 Respiratory rate 16 /min Mary Beth HUANGL [facility] [place] 11-22-2022 13:01-0500 Systolic blood pressure 152 mm[Hg] Mary Beth HUANGL [facility] [place] 02-22-2022 10:47-0400 Blood Pressure Location Jasper GAEL [facility] 02-22-2022 10:47-0400 Diastolic blood pressure 81 mm[Hg] Jasper BEE [facility] 02-22-2022 10:47-0400 Heart rate 70 /min Jasper BEE [facility] 02-22-2022 10:47-0400 Respiratory rate 16 /min Jasper BEE [facility] 02-22-2022 10:47-0400 Systolic blood pressure 132 mm[Hg] Jasper BEE [facility] Encounters Encounter Date Encounter Type Care Provider Facility Start: 05-28-2024 [facility] Start: 05-26-2023 End: 05-26-2023 ambulatory Jasper BEE Facility:[facility] Start: 05-26-2023 End: 05-26-2023 Patient encounter procedure Jasper BEE [facility] Start: 02-19-2023 End: 02-20-[address] JASPER BEE . Facility: Start: 01-07-2023 End: 01-07-2023 Patient encounter procedure Mary Beth WEIR [facility] Start: 12-18-2022 End: 12-18-[address] MARY BETH WEIR . Facility: Start: 11-26-2022 End: 12-05-[address] ALANIS SALEEM . Facility: Start: 11-22-2022 End: 11-22-2022 Patient encounter procedure Mary Beth WEIR [facility] Start: 11-14-2022 End: 11-14-[address] ALANIS SALEEM . Facility: Start: 11-13-2022 End: 11-14-[address] ALANIS SALEEM . Facility: Start: 06-11-2022 End: 06-12-[address] ALANIS SALEEM . Facility: Start: 03-01-2022 End: 03-02-[address] JASPER BEE . Facility: Start: 02-22-2022 End: 02-22-2022 Patient encounter procedure Jasper BEE [facility] Procedures Date Procedure Procedure Detail Performing Clinician Start: 12-18-2022 Colonoscopy Mary Beth LIRIANO Start: 11-13-[address] ANNA SALEEM . Comment on above: Performed By: #### P [facility], VITAD #### [facility] [address] [place] [address] Dr. Gianna Rodgers Start: 03-01-2021 Extracorporeal shock [...] Immunization Date Immunization Notes Care Provider Fa michelle 01-16-2021 SARS-CoV-2 (COVID-19 ) mRNA BNT-162b2 vax Jasper BEE [facility] 12-27-2020 SARS-CoV-2 (COVID-19 ) mRNA BNT-162b2 vax Mary Beth WEIR [facility] [place] NEGATED: Highlighted row has not occurred!11-22-2022 influenza virus vaccine, unspecified formulation Mary Beth WEIR [facility] [place] Payers Date Payer Category Payer Private Health Insurance [id number] 1960 Medicare [id number] 1960 Medicare [id number] 1955 Unknown [id number] 2.16.84 [id number] 1955 Unknown [id number] 2.16.84 [id number] 1954 Unknown [id number] 2.16.84 [id number] 1954 Unknown [id number] 2.16.84 [id number] 1954 Unknown [id number] 2.16.84 [id number] 1954 Unknown [id number] 2.16.84 [id number] 1954 Unknown [id number] 2.16.84 [id number] 1954 Unknown [id number] 2.16.8 [id number] 1955 Unknown [id number] 2.16.8 [id number] Social History Date Type Detail Facility Start: 07-26-2019 End: 05-26-2023 Tobacco smoking status Never smoked tobacco (finding) [facility] Tobacco smoking status Never [facility] Sex Assigned At Male [facility] Functional Status Date Assessment Result Facility 05-26-2023 Functional Status N/A [facility] 11-22-2022 Functional Status N/A [facility] Discharge instructions 05-26-2023 Note Date & [...] include: ?8 oz (237 mL) of milk, vhwczxq-iaolwwqoruhh-zsulj milk, and calcium-fortifiedfruit juice. Calcium-fortified means that [...] ?Spinach (cooked), rhubarb, beets, sweet potatoes, and [place] chard. ?Peanuts. ?Potato chips, lao fries, and baked potatoes with skin on. ?Nuts and nut products. ?Chocolate. If you regularly take a diuretic medicine, make sure to eat at least 1 or 2 servings of fruits or vegetables that are high in potassium each day. These include: ?Avocado. ?Banana. ?Bates, prune, carrot, or tomato juice. ?Baked potato. [...] magnesium, fish oil, or vitamin B6. Take mxqn-qpl-fxuwrxv and prescription medicines only as told by [...] Casseroles. Pizza. Lasagna. Frozen meals. Potato chips. Welsh fries. The items listed above may not [...] provider. Document Revised: 06/10/2022 Document Reviewed: 06/10/2022 [employer] Patient Education 2022 [employer] Follow Up Care 02/22/2022 11:51:46 With:GAEL KRISHNAMURTHY, Jasper Panchal, URL Address: [facility] [address] [place] [address]- [phone] When:Within 1 Year(s) Comments:KUB [facility] [place] Clinical Note 12-18-2022 Note Date & Type [...] in good condition. CC: Alanis Saleem M.D. [facility] Discharge instructions 02-22-2022 Note Date & Type Note Facility 02-22-2022 Hospital Discharg e instructions Patient Education 02/22/2022 08:11:52 Kidney Stones, Fozp-is-Afnj Kidney Stones Kidney stones are rock-like masses [...] Follow these instructions at home: Medicines Take bcyp-fby-prcedou and prescription medicines only as told by [...] 03/17/2009 Document Revised: 02/15/2020 Document Reviewed: 02/15/2020 [employer] Patient Education 2020 [employer] Follow Up Care 03/20/2021 09:44:29 With:GAEL KRISHNAMURTHY, Jasper Panchal, URL Address: [facility] [address], [place] [address]- When: Unknown [facility] Evaluation + Plan note Note Date & Type Note Facility Evaluation + Plan note Future Appointments Appointment Date:02/24/2023 11:15:00 AM Scheduled Provider:Jasper BEE MD Location:[facility] Appointment Type:URO Office Visit [facility] Evaluation + Plan note Note Date & Type Note Facility Evaluation + Plan note Future Appointments Appointment Date:05/28/2024 10:15:00 AM Scheduled Provider:Jasper BEE MD Location:[facility] Appointment Type:URO Office Visit [facility] Hospital course Narrative Note Date & Type Note Facility Hospital course Narrative No data available for this section [facility] Hospital Discharge instructions Note Date & Type Note Facility Hospital Discharge instructions No data available for this section [facility] [place] [facility] note Note Date & Type Note Facility [facility] note No data available for this section [facility] Summary Purpose Family History No Family History Records FoundNo Family History Records Found Advance Directives No Advanced Directives Records FoundNo Advanced Directives Records Found Additional Source Comments Patient Care team informatio n (unrecognized section and content) Personnel Name: Alanis Saleem MD Address: Address: [address] [place] [address] Personnel Name: Alanis Saleem MD Address: Address: [address] [place] [address] Personnel Name: Alanis Saleem MD Address: Address: [address] [place] [address] (unrecognized sect ion and content) No Status Records FoundNo Status Records Found INFORMATION SOURCE (unrecogn ized section and content) DATE CREATED AUTHOR 02/23/2023 [facility] DATE CREATED AUTHOR AUTHOR'S ORGANIZ ATERICKSON 05/25/2024 [facility] FOR RECORDS PERTAINING TO PATIENTS WHO ARE [...] BE BASED ON THE PRIMARY CLINICAL RECORDS. [facility] [employer] [facility]. provides no warranty or guarantee of the accuracy or completeness of information in this document.
== END 2024-05-26 11:10 | disposition home or self-care (01) ==
LOC: RAD 11:10
PROVIDERS: PCP Family Medicine; Visit Provider Urology
DX: N20.0 Calculus of kidney (principal)
CPT/HCPCS: 74018

== ENCOUNTER 2024-12-15 14:04 | Outpatient (OUT) | payer MEDICARE, SELFPAY ==
--- OUTSIDE RECORDS SUMMARY | 2024-12-15 14:25 | XMS_ITS | CCD ---
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 Name Role Phone Alanis Saleem Primary Care Physician [phone] [address]RA[address] ., DR THAPA Admitting Unavailable HOY [...] Unavailable BEE ., DR FERNANDES Consulting Unavailable ZIEBER, DR JAIRO Panchal Consulting Unavailable BEE, Jasper R Attending Unavailable BEE, Jasper R Attending Unavailable BEE, Jasper R Attending Unavailable BEE, Jasper R Admitting Unavailable BEE, Jasper R Attending Unavailable BEE, Jasper R Admitting Unavailable BEE, Jasper R Attending Unavailable Allergies Allergy Classification Reported Allergen(s) Allergy Type Date of Onset Reaction(s) Facility (1 source) bee venom Drug allergy (disorder) [facility] Repository (1 source) No Known Medication Allergies; Translations: [No Known Medication Allergies] Propensity to adverse reactions (disorder) [facility] Repository Medications Current Medications Medication Drug Class(es) Dates Sig (Normalized) Sig (Original) finasteride 5 mg oral tablet (7 sources) 5-alpha Reductase Inhibitor Start: 02-22-2022 take 1 tablet by mouth once daily finasteride 5 mg Tab 5 mg = 1 tab(s), Oral, Daily, Refills(s) 0 Start Date: 02/22/22 Status: Ordered metoprolol tartrate 50 mg oral tablet (7 sources) beta-Adrenergic Rochelle Start: 11-20-2022 take 1 tablet by mouth twice daily Metoprolol tartrate 50 mg Tab 50 mg = 1 tab(s), Oral, BID, Refills(s) 0 Start Date: 11/20/22 Status: Ordered Start: 07-26-2019 take 1 mg by mouth once daily metoprolol 25 mg ER Tab mg tab(s), Oral, Daily, Refills(s) 0 Start Date: 07/26/19 Status: Ordered pantoprazole 40 mg delayed release oral tablet (7 sources) Proton Pump Inhibitor Start: 11-20-2022 take [...] Ordered tamsulosin hydrochloride 0.4 mg oral capsule (7 sources) alpha-Adrenergic Rochelle Start: 07-26-2019 take 1 capsule by mouth twice daily tamsulosin 0.4 mg Cap 0.4 mg = 1 cap(s), Oral, BID, # 180 cap(s), Refills(s) 3, Pharmacy: [facility] Start Date: 07/26/19 Status: Ordered Problems Active Problems Problem Classification Problem Date Documented Da te Episodic/Chronic Biliary tract disease (6 sources) Biliary calculus 11-20-2022 Episodic Calculus of urinary tract (20 sources) History of calculus of kidney; Translations: [Personal history of urinary calculi] Onset: 2 Episodic Diabetes mellitus without complication (4 sources) Type 2 diabetes mellitus without complications; Translations: [TYPE 2 DM WITHOUT COMPLICATIONS] Onset: 3 Chronic Diabetes mellitus without complication (8 sources) Prediabetes; Translations: [Prediabetes] Onset: 3 11-22-2022 Episodic Disorders of lipid metabolism (1 source) Hyperlipidemia, unspecified; Translations: [HYPERLIPIDEMIA UNSPECIFIED] Onset: 3 Chronic Diverticulosis and diverticulitis (13 sources) Diverticular disease; Translations: [Diverticula of intestine] Onset: 3 11-20-2022 Chronic Esophageal disorders (7 sources) Gastroesophageal reflux disease; Translations: [Gastro-esophageal reflux disease without esophagitis] Onset: 3 11-20-2022 Chronic Essential hypertension (8 sources) Hypertensive disorder; Translations: [Essential (primary) hypertension] Onset: 3 04-30-2019 Chronic Genitourinary symptoms and ill-defined conditions (7 sources) Nocturia 07-26-2019 Episodic Hemorrhoids (2 sources) Other hemorrhoids; Translations: [Residual hemorrhoidal skin tags] Onset: 3 Episodic Hyperplasia of prostate (20 sources) Benign prostatic hypertrophy without outflow obstruction; Translations: [Benign prostatic hyperplasia without lower urinary tract symptoms] Onset: 2 Chronic Nutritional deficiencies (1 source) Vitamin D deficiency, unspecified; Translations: [VITAMIN D DEFICIENCY UNSPECIFIED] Onset: 3 Chronic Other aftercare (1 source) Other extermination supervisor (current) drug therapy; Translations: [OTH FLY MAKER CURRENT DRUG THERAPY] Onset: 3 Episodic Other and unspecified benign neoplasm (1 source) Polyp of colon; Translations: [Polyp of colon] Onset: 3 Episodic Other and unspecified benign neoplasm (6 sources) Benign neoplasm of descending colon; Translations: [Benign neoplasm of descending colon] Onset: 3 Episodic Other and unspecified benign neoplasm (1 source) Benign neoplasm of descending colon; Translations: [BENIGN NEOPLASM OF DESCENDING COLON] Onset: 3 Episodic Other and unspecified benign neoplasm (1 source) Polyp of colon; Translations: [POLYP OF COLON] Onset: 3 Episodic Other diseases of kidney and ureters (3 sources) Acquired renal cyst without neoplastic change; Translations: [Cyst of kidney, acquired] Onset: 2 Episodic Other diseases of kidney and ureters (7 sources) Hydronephrosis due to ureteral obstruction 04-30-2019 Episodic Other diseases of kidney and ureters (1 source) Cyst of kidney, acquired; Translations: [CYST OF KIDNEY ACQUIRED] Onset: 3 Episodic Other diseases of kidney and ureters (4 sources) Cyst of kidney 05-21-2023 Episodic Other diseases of kidney and ureters (1 source) Urinary tract obstruction; Translations: [Other obstructive and reflux uropathy] Onset: 4 Episodic Other gastrointestinal disorders (1 source) Abnormal feces; Translations: [Other fecal abnormalities] Onset: 3 Episodic Other gastrointestinal disorders (6 sources) Occult blood in stools 11-22-2022 Episodic Other gastrointestinal disorders (5 sources) Hyperplastic polyp of intestine 01-07-2023 Episodic Other gastrointestinal disorders (4 sources) Other fecal abnormalities; Translations: [OTHER FECAL ABNORMALITIES] Onset: 3 Episodic Other nutritional; endocrine; and metabolic disorders (6 sources) Body mass index 30+ - obesity 11-22-2022 Chronic Other screening for suspected conditions (not mental disorders or infectious disease) (15 sources) Raised prostate specific antigen; Translations: [Elevated prostate specific antigen [PSA]] Onset: 2 Episodic Other upper respiratory disease (6 sources) Seasonal allergic rhinitis 11-20-2022 Chronic Past [...] Test Name Value Interpretation Reference Range Facility CHEMISTRYOrdered By: SYSTEM SYSTEM on 05-31-2024 Prostate specific Ag [Mass/Vol] 1.2 ng/mL Normal 0.1 - 3.5 ng/mL [facility] Comment on above: Interpretive Data: T he concentration of PSA determined by different manufacturers can vary due to differences in assay methods and reagent specificity. Values obtained from different assay methods cannot be used interchangeably. The methodology used for this result was chemiluminescence using [employer]w [employer]'s Access Hybritech PSA reagent. PSA Totalon 05-31-2024 Prostate specific Ag [Mass/Vol] 1.2 ng/mL Normal 0.1-3.5 [facility] Comment on above: Result Comment: The concentration of PSA determined by different manufacturers can vary due to differences in assay methods and reagent specificity. Values obtained from different assay methods cannot be used interchangeably. The methodology used for this result was chemiluminescence using Mathew [employer]'s Access Hybritech PSA reagent. Performed By: #### 1 [id number] #### [facility] [address] [place] [address] Urology Office/Clinic Noteon 05-28-2024 Urology Office/Clinic Note Urology Office/Clinic Note Chief Complaint 1 year follow up HPI Staff 1 yr w/ KUB no report yet but there is an image at [facility] 05/26/24 Dx: BPH with elevated PSA, kidney stone, renal cyst, hx of kidney stones, bladder stones. *Finasteride 5mg qd and Tamsulosin 0.4mg bid. Last PSA 11/13/22 - 1.40 (2.80 with Finasteride). Monitored by PCP. KUB done 05/26/24 at [facility] - report still pending at time of preloading. Dysuria: denies pain or burning Incomplete bladder emptying: denies Hematuria: denies visible blood Frequency: denies Urgency: denies Nocturia: 3-4x a night drinks more fluids at night Stream: denies hesitancy, stream has gotten better Leaking: denies Post void dripping: denies Wearing pads/ Depends: denies Urge incontinence: denies Stress incontinence: denies Incontinence without Sensory Awareness: denies Abdominal pain: denies Flank pain: denies Sexual complaints: denies History of Present Illness Tests reviewed: reviewed UA and KUB image. I have reviewed the previous health record information and history for this patient from Dr. Bee. I have reviewed and verified the staff HPI to be accurate for this encounter. There have been no associated fever, chills, flank pain, or blood in the urine. Denies any urinary infections since last encounter. Review of Systems PHQ Score Initial Depression Screen Score: 0 SCORE ROS - Provider Constitutional: denies weight loss, [...] HPI. Physical Exam Vitals & Measurements HR: 94(Peripheral) RR: 16 BP: 146/86 HT: 70 in HT: 177.8 cm WT: 84.3 kg WT: 185.46 lb BMI: 26.67 General Appearance: alert, no distress, well nourished, well developed male. Assessment/Plan 1. 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 Taking Finasteride 5mg qd and Flomax 0.4mg bid. Has been taking [employer] supplements and overall feels great. Reviewed ingredients, Selenium is one listed that can improve urination. States his urination has even improved. Pleased with overall urination status. -Cont meds wo changes 2. Elevated PSA (R97.20: Elevated prostate specific antigen [PSA]) PSA: 02/03/21 - 1.35 10/02/21 - 1.0 (2.0 with Finasteride) 11/13/22 - 1.40 (2.80 with Finasteride) ~Managed by primary care. No recent PSA on file. -Cont annual prostate cancer screening 3. Kidney stone (N20.0: Calculus of kidney) First stone in 1993 and passed naturally. S/p Left ESWL 03/01/21 [1] KUB 02/19/23 TB - showed stable, tiny left renal calcifications CT AP w con done 03/06/23 at [facility] showed nonobstructing bilateral renal stones and 2 adjacent 4 mm stones within posterior right urinary bladder. KUB 05/26/24 [facility] - report pending. On review, several punctate stones on the left. Possible R sided stone, large stool burden. -KUB in 12 mos 4. Renal cyst (N28.1: Cyst of kidney, acquired) Per KUB done 02/03/[address], 9.5cm right renal cyst [2] CT AP w con done 03/06/23 at [facility] showed a 10 cm right superior pole renal cyst and stable, small left superior pole renal cysts. 5. Bladder stones (N21.0: Calculus in bladder) CT AP w con done 03/06/23 at [facility] showed 2 adjacent 4mm stones within posterior R bladder. Follow-up With When Contact Information GAEL KRISHNAMURTHY, Jasper Panchal, URL [facility] [place] [address]- Additional Instructions: 1 year w/ KUB Patient Education Benign Prostatic Hyperplasia I, Melissa Orellana, personally scribed for Dr. Bee on 05/28/2024 10:45:33. . Documentation recorded by the scribe, Melissa Orellana, accurately reflects the services(s) I performed and decisions made by me. Authenticated by Dr. Bee on 05/28/2024 10:50:00. Problem List/Past Medical History Ongoing Bladder stones BMI 32.0-32.9,adult BPH with elevated PSA BPH with urinary obstruction Cholelithiasis Diverticulosis Elevated PSA Enlarged prostate with [...] (03/01/2021), Cystoscopic removal of ureteric stent (05/04/2019), Litho (more content not included)... Normal [facility] Comment on above: Result Comment: Elec tronically Signed By: Jasper BEE MD\.br\Date and Time Signed: 05/28/24 10:50 EDT\.br\Electronically Co-Signed By: Melissa Orellana.br\Date and Time Co-Signed: 05/28/24 10:45 EDT XR KUB 1 VIEWon 02-20-2023 XR [...] JAIRO WAN Date: 2023-02-20 07:16 Normal [facility] TESS by IFAon 11-18-2022 Antinuclear Antibodies, IFA Negative Normal [facility] Comment on above: Result Comment: Nega tive <1:80 Borderline 1:80 Positive >1:80 ICAP nomenclature: AC-0 For more information about Hep-2 cell patterns use ANApatterns.org, the official website for the International Consensus on Antinuclear Antibody (TESS) Patterns (ICAP). Performed By: #### A NAIFA #### [facility] [address] [place] [address] Dr. Gianna Rodgers ANTISTREPTOLYSIN O AB (ASO)o n 11-14-2022 Antistreptolysin O Ab 26.9 IU/mL Normal 0.0-200.0 [facility] Comment on above: Performed By: #### A SOAB #### [facility] [address] [place] [address] Dr. Gianna Rodgers INSULINon 11-14-2022 Insulin 17.4 uIU/mL Normal 2.6-24.9 [facility] Comment on above: Performed By: #### P SASC, VITAD #### [facility] [address] [place] [address] Dr. Gianna Rodgers LYME DISEASE AB EIA W REFLEX on 11-14-2022 Lyme Total Antibody,EIA Negative Normal Negative [facility] Comment on above: Result Comment: Lyme [...] Performed By: #### P SASC, VITAD #### [facility] [address] [place] [address] Dr. Gianna Rodgers OCC BLD IMMUNO SCREENon OCCULT BLOOD Positive Abnormal NEGATIVE [facility] Comment on above: Performed By: #### P SASC, VITAD #### [facility] [address] [place] [address] Dr. Gianna Rodgers RHEUMATOID FACTORon 11-14-19 RA Latex Turbid. <10.0 Normal <14.0 [facility] Comment on above: Performed By: #### P SASC, VITAD #### [facility] [address] [place] [address] Dr. Gianna Rodgers TESTOSTERONE, TOTALon 2022 Testosterone [Mass/Vol] 329 ng/dL Normal 264-916 [facility] Comment on above: Result Comment: Adul t male reference interval is based on a population of healthy nonobese males (BMI <30) between 19 and 39 years old. Karen et.al. JCEM 2017,102;0665-5495. PMID: [id number]. Performed By: #### P SASC, VITAD #### [facility] [address] [place] [address] Dr. Gianna Rodgers CBC AUTO DIFFon 11-13-2022 BASO # 0.0 103/ul Normal 0.0-0.1 [facility] Comment on above: Performed By: #### P SASC, VITAD #### [facility] [address] [place] [address] Dr. Gianna Rodgers Basophils/100 WBC (Bld) 0.4 % Normal 0.2-2.0 [facility] Comment on above: Performed By: #### P SASC, VITAD #### [facility] [address] [place] [address] Dr. Gianna Rodgers EO # 0.1 103/ul Normal 0.0-0.7 [facility] Comment on above: Performed By: #### P SASC, VITAD #### [facility] [address] [place] [address] Dr. Gianna Rodgers Eosinophils/100 WBC (Bld) 1.0 % Normal 0.9-7.0 [facility] Comment on above: Performed By: #### P SASC, VITAD #### [facility] [address] [place] [address] Dr. Gianna Rodgers Erythrocyte distribution width (RBC) [Ratio] 13.8 % Normal 11.0-15.0 [facility] Comment on above: Performed By: #### P SASC, VITAD #### [facility] [address] [place] [address] Dr. Gianna Rodgers Hematocrit (Bld) [Volume fraction] 48.1 % Normal 42.0-54.0 [facility] Comment on above: Performed By: #### P SASC, VITAD #### [facility] [address] [place] [address] Dr. Gianna Rodgers Hemoglobin (Bld) [Mass/Vol] 15.8 g/dL Normal 14.0-18.0 [facility] Comment on above: Performed By: #### P SASC, VITAD #### [facility] [address] [place] [address] Dr. Gianna Rodgers IG # 0.02 10e3/ul Normal 0.00-0.03 [facility] Comment on above: Performed By: #### P SASC, VITAD #### [facility] [address] [place] [address] Dr. Gianna Rodgers IG % 0.2 % Normal 0.0-0.5 [facility] Comment on above: Performed By: #### P SASC, VITAD #### [facility] [address] [place] [address] Dr. Gianna Rodgers LYMPH # 2.3 103/ul Normal 1.2-3.8 [facility] Comment on above: Performed By: #### P SASC, VITAD #### [facility] [address] [place] [address] Dr. Gianna Rodgers Lymphocytes/100 WBC (Bld) 24.0 % Normal 20.5-60.0 [facility] Comment on above: Performed By: #### P SASC, VITAD #### [facility] [address] [place] [address] Dr. Gianna Rodgers MANUAL DIFF REQ NO Normal [facility] Comment on above: Performed By: #### P SASC, VITAD #### [facility] [address] [place] [address] Dr. Gianna Rodgers MCH (RBC) [Entitic mass] 28.8 pg Normal 25.9-34.0 [facility] Comment on above: Performed By: #### P SASC, VITAD #### [facility] [address] [place] [address] Dr. Gianna Rodgers MCHC (RBC) [Mass/Vol] 32.8 g/dL Normal 29.9-35.2 [facility] Comment on above: Performed By: #### P SASC, VITAD #### [facility] [address] [place] [address] Dr. Gianna Rodgers MCV (RBC) [Entitic vol] 87.6 fL Normal 80.0-94.0 [facility] Comment on above: Performed By: #### P SASC, VITAD #### [facility] [address] [place] [address] Dr. Gianna Rodgers MONO # 0.8 103/ul Normal 0.3-0.8 [facility] Comment on above: Performed By: #### P SASC, VITAD #### [facility] [address] [place] [address] Dr. Gianna Rodgers Monocytes/100 WBC (Bld) 8.5 % Normal 1.7-12.0 [facility] Comment on above: Performed By: #### P SASC, VITAD #### [facility] [address] [place] [address] Dr. Ginana Rodgers NEUT # 6.2 103/ul Normal 1.4-6.5 [facility] Comment on above: Performed By: #### P SASC, VITAD #### [facility] [address] [place] [address] Dr. Gianna Rodgers Neutrophils/100 WBC (Bld) 65.9 % Normal 43.0-75.0 [facility] Comment on above: Performed By: #### P SASC, VITAD #### [facility] [address] [place] [address] Dr. Gianna Rodgers Platelet mean volume (Bld) [Entitic vol] 10.2 fL Normal 9.5-13.5 [facility] Comment on above: Performed By: #### P SASC, VITAD #### [facility] [address] [place] [address] Dr. Gianna Rodgers PLT 304 103/ul Normal 150-450 [facility] Comment on above: Performed By: #### P SASC, VITAD #### [facility] [address] [place] [address] Dr. Gianna Rodgers RBC 5.49 106/ul Normal 4.70-6.10 [facility] Comment on above: Performed By: #### P SASC, VITAD #### [facility] [address] [place] [address] Dr. Gianna Rodgers WBC 9.4 103/ul Normal 4.0-11.0 [facility] Comment on above: Performed By: #### P SASC, VITAD #### [facility] [address] [place] [address] Dr. Gianna Rodgers CRPon 11-13-2022 CRP [Mass/Vol] mg/L Normal <=1.0 [facility] Comment on above: Performed By: #### C RP, URIC, T7, CMP, LIPID, TSH #### [facility] [address] [place] [address] Dr. Gianna Rodgers FREE THYROXINE INDEX T7on FTI 2.56 Normal 1.30-4.50 [facility] Comment on above: Performed By: #### P SASC, VITAD #### [facility] [address] [place] [address] Dr. Gianna Rodgers T3U 35.0 % Normal 33.0-40.0 [facility] Comment on above: Performed By: #### P SASC, VITAD #### [facility] [address] [address] [address] Gianna Rodgers T4 [Mass/Vol] 7.30 ug/dL Normal 4.50-12.10 [facility] Comment on above: Performed By: #### P SONJA, VITAD #### [facility] [address] [address] [address] Gianna Rodgers GLYCOHEMOGLOBIN A1Con 2022 ADA RECOMMENDATION SEE BELOW Normal [facility] Comment on above: Result Comment: ADA RECOMMENDED LIMIT 4.0 - 6.0 ADA THERAPEUTIC TARGET < 7.0 ACTION SUGGESTED > 7.0 Performed By: #### A 1C #### [facility] [address] [address] [address] Gianna Rodgers Glucose [Mass/Vol] 146 mg/dL Normal [facility] Comment on above: Performed By: #### A 1C #### [facility] [address] [place] [address] Dr. Gianna Rodgers HbA1c (Bld) [Mass fraction] 6.7 % Critically high 4.5-6.2 [facility] Comment on above: Performed By: #### A 1C #### [facility] [address] [address] [address] Gianna Rodgers LIPID PROFILEon 11-13-2022 CHOL-HDL RATIO NORM SEE BELOW Normal [facility] Comment on above: Result Comment: 3.3 - 4.4 LOW RISK 4.4 - 7.1 AVERAGE RISK 7.1 - 11.0 MODERATE RISK >11.0 HIGH RISK Performed By: #### P SONJA, VITAD #### [facility] [address] [place] [address] Dr. Gianna Rodgers Cholesterol [Mass/Vol] 184 mg/dL Normal <=200 [facility] Comment on above: Performed By: #### P ALBERTOC, VITAD #### [facility] [address] [place] [address] Dr. Gianna Rodgers Cholesterol in HDL [Mass/Vol] 66 mg/dL Critically high 40-60 [facility] Comment on above: Performed By: #### P ALBERTOC, VITAD #### [facility] [address] [place] [address] Dr. Gianna Rodgers Cholesterol in LDL [Mass/Vol] 100.0 mg/dL Normal [facility] Comment on above: Performed By: #### P SASC, VITAD #### [facility] [address] [place] [address] Dr. Gianna Rodgers Cholesterol.total/Cho lesterol in HDL [Mass ratio] 2.8 {ratio} Normal [facility] Comment on above: Performed By: #### P SASC, VITAD #### [facility] [address] [place] [address] Dr. Gianna Rodgers HDL NORMAL > or = 60 mg/dl - LO W CARDIOVASCULAR RISK <40 mg/dl - HIGH CARDIOVASCULAR RISK Normal [facility] Comment on above: Performed By: #### P ALBERTOC, VITAD #### [facility] [address] [place] [address] Dr. Gianna Rodgers LDL CALC NORMAL SEE BELOW Normal [facility] Comment on above: Result Comment: <100 mg/dl OPTIMAL 100 - 129 mg/dl NEAR OR ABOVE OPTIMAL 130 - 159 mg/dl BORDERLINE HIGH 160 - 189 mg/dl HIGH >190 mg/dl VERY HIGH Performed By: #### P SASC, VITAD #### [facility] [address] [place] [address] Dr. Gianna Rodgers Triglyceride [Mass/Vol] 90 mg/dL Normal <=150 [facility] Comment on above: Performed By: #### P SASC, VITAD #### [facility] [address] [place] [address] Dr. Gianna Rodgers VLDL CALC 18.0 mg/dL Normal [facility] Comment on above: Performed By: #### P SASC, VITAD #### [facility] [address] [place] [address] Dr. Gianna Rodgers PROF 14(COMP METB)on 023 Albumin [Mass/Vol] 3.8 g/dL Normal 3.4-5.0 [facility] Comment on above: Performed By: #### C RP, URIC, T7, CMP, LIPID, TSH #### [facility] [address] [place] [address] Dr. Gianna Rodgers Albumin/Globulin [Mass ratio] 1.2 {ratio} Normal [facility] Comment on above: Performed By: #### C RP, URIC, T7, CMP, LIPID, TSH #### [facility] [address] [place] [address] Dr. Gianna Rodgers ALP [Catalytic activity/Vol] 74 U/L Normal 46-116 [facility] Comment on above: Performed By: #### C RP, URIC, T7, CMP, LIPID, TSH #### [facility] [address] [place] [address] Dr. Gianna Rodgers ALT [Catalytic activity/Vol] 32 U/L Normal 16-63 [facility] Comment on above: Performed By: #### C RP, URIC, T7, CMP, LIPID, TSH #### [facility] [address] [place] [address] Dr. Gianna Rodgers Anion gap [Moles/Vol] 12.7 mmol/L Normal [facility] Comment on above: Performed By: #### C RP, URIC, T7, CMP, LIPID, TSH #### [facility] [address] [place] [address] Dr. Gianna Rodgers AST [Catalytic activity/Vol] 16 U/L Normal 15-37 [facility] Comment on above: Performed By: #### C RP, URIC, T7, CMP, LIPID, TSH #### [facility] [address] [place] [address] Dr. Gianna Rodgers Bilirubin [Mass/Vol] 2.1 mg/dL Critically high 0.2-1.0 [facility] Comment on above: Performed By: #### C RP, URIC, T7, CMP, LIPID, TSH #### [facility] [address] [place] [address] Dr. Gianna Rodgers Calcium [Mass/Vol] 9.5 mg/dL Normal 8.5-10.1 [facility] Comment on above: Performed By: #### C RP, URIC, T7, CMP, LIPID, TSH #### [facility] [address] [place] [address] Dr. Gianna Rodgers Chloride [Moles/Vol] 102 mmol/L Normal 98-107 [facility] Comment on above: Performed By: #### C RP, URIC, T7, CMP, LIPID, TSH #### [facility] [address] [address] [address] Gianna Rodgers CO2 [Moles/Vol] 27.7 mmol/L Normal 21.0-32.0 [facility] Comment on above: Performed By: #### C RP, URIC, T7, CMP, LIPID, TSH #### [facility] [address] [address] [address] Gianna Rodgers Creatinine [Mass/Vol] 1.08 mg/dL Normal 0.70-1.30 [facility] Comment on above: Performed By: #### C RP, URIC, T7, CMP, LIPID, TSH #### [facility] [address] [place] [address] Dr. Gianna Rodgers EGFR-AF EGYPTIAN >60 Normal >=60 [facility] Comment on above: Performed By: #### C RP, URIC, T7, CMP, LIPID, TSH #### [facility] [address] [place] [address] Dr. Gianna Rodgers EGFR-NON AF EGYPTIAN >60 Normal >=60 [facility] Comment on above: Performed By: #### C RP, URIC, T7, CMP, LIPID, TSH #### [facility] [address] [place] [address] Dr. Gianna Rodgers Globulin (S) [Mass/Vol] 3.2 g/dL Normal [facility] Comment on above: Performed By: #### C RP, URIC, T7, CMP, LIPID, TSH #### [facility] [address] [address] [address] Gianna Rodgers Glucose [Mass/Vol] 135 mg/dL Critically high 74-106 [facility] Comment on above: Performed By: #### C RP, URIC, T7, CMP, LIPID, TSH #### [facility] [address] [address] [address] Gianna Rodgers Potassium [Moles/Vol] 3.4 mmol/L Critically low 3.5-5.1 [facility] Comment on above: Performed By: #### C RP, URIC, T7, CMP, LIPID, TSH #### [facility] [address] [place] [address] Dr. Gianna Rodgers Protein [Mass/Vol] 7.0 g/dL Normal 6.4-8.2 [facility] Comment on above: Performed By: #### C RP, URIC, T7, CMP, LIPID, TSH #### [facility] [address] [place] [address] Dr. Gianna Rodgers Sodium [Moles/Vol] 139 mmol/L Normal 136-145 [facility] Comment on above: Performed By: #### C RP, URIC, T7, CMP, LIPID, TSH #### [facility] [address] [place] [address] Dr. Gianna Rodgers Urea nitrogen [Mass/Vol] 17.0 mg/dL Normal 7.0-18.0 [facility] Comment on above: Performed By: #### C RP, URIC, T7, CMP, LIPID, TSH #### [facility] [address] [place] [address] Dr. Gianna Rodgers Urea nitrogen/Creatinine [Mass ratio] 15.7 mg/mg Normal [facility] Comment on above: Performed By: #### C RP, URIC, T7, CMP, LIPID, TSH #### [facility] [address] [place] [address] Dr. Gianna Rodgers TSHon 11-13-2022 TSH 0.436 uIU/mL Normal 0.358-3.740 [facility] Comment on above: Performed By: #### P SASC, VITAD #### [facility] [address] [place] [address] Dr. Gianna Rodgers URIC ACID SERUMon 11-13-2022 Urate [Mass/Vol] 5.2 mg/dL Normal 3.5-7.2 [facility] Comment on above: Performed By: #### C RP, URIC, T7, CMP, LIPID, TSH #### [facility] [address] [place] [address] Dr. Gianna Rodgers VITAMIN D 25 OHon 11-13-2022 VIT D 25-OH 32.8 ng/mL Normal [facility] Comment on above: Performed By: #### P SASC, VITAD #### [facility] [address] [place] [address] Dr. Gianna Rodgers VIT D RANGES SEE BELOW Normal [facility] Comment on above: Result Comment: <20 ng/mL Vit D deficient 20 - <30 ng/mL Vit D insufficient 30 - 100 ng/mL Vit D sufficient >100 ng/mL Potential Toxicity Performed By: #### P SASC, VITAD #### [facility] [address] [place] [address] Dr. Gianna Rodgers LYME DISEASE AB EIA W REFLEX on 06-12-2022 Lyme Total Antibody,EIA Negative Normal Negative [facility] Comment on above: Result Comment: Lyme Antibody Negative No laboratory evidence of infection with B. burgdorferi (Lyme disease). Negative results may occur in patients recently infected (less than or equal to 14 days) with B. burgdorferi. If recent infection is suspected, repeat testing on a new sample collected in 7 to 14 days is recommended. Performed By: #### L YMA #### [facility] [address] [place] [address] Dr. Gianna Rodgers CBC AUTO DIFFon 06-11-2022 BASO # 0.1 103/ul Normal 0.0-0.1 [facility] Comment on above: Performed By: #### C BC #### [facility] [address] [place] [address] Dr. Gianna Rodgers Basophils/100 WBC (Bld) 0.7 % Normal 0.2-2.0 [facility] Comment on above: Performed By: #### C BC #### [facility] [address] [place] [address] Dr. Gianna Rodgers EO # 0.1 103/ul Normal 0.0-0.7 [facility] Comment on above: Performed By: #### C BC #### [facility] [address] [place] [address] Dr. Gianna Rodgers Eosinophils/100 WBC (Bld) 1.6 % Normal 0.9-7.0 [facility] Comment on above: Performed By: #### C BC #### [facility] [address] [place] [address] Dr. Gianna Rodgers Erythrocyte distribution width (RBC) [Ratio] 13.1 % Normal 11.0-15.0 [facility] Comment on above: Performed By: #### C BC #### [facility] [address] [place] [address] Dr. Gianna Rodgers Hematocrit (Bld) [Volume fraction] 45.2 % Normal 42.0-54.0 [facility] Comment on above: Performed By: #### C BC #### [facility] [address] [place] [address] Dr. Gianna Rodgers Hemoglobin (Bld) [Mass/Vol] 15.1 g/dL Normal 14.0-18.0 [facility] Comment on above: Performed By: #### C BC #### [facility] [address] [place] [address] Dr. Gianna Rodgers IG # 0.02 10e3/ul Normal 0.00-0.03 [facility] Comment on above: Performed By: #### C BC #### [facility] [address] [place] [address] Dr. Gianna Rodgers IG % 0.3 % Normal 0.0-0.5 [facility] Comment on above: Performed By: #### C BC #### [facility] [address] [place] [address] Dr. Gianna Rodgers LYMPH # 1.3 103/ul Normal 1.2-3.8 [facility] Comment on above: Performed By: #### C BC #### [facility] [address] [place] [address] Dr. Gianna Rodgers Lymphocytes/100 WBC (Bld) 16.7 % Critically low 20.5-60.0 [facility] Comment on above: Performed By: #### C BC #### [facility] [address] [place] [address] Dr. Gianna Rodgers MANUAL DIFF REQ NO Normal [facility] Comment on above: Performed By: #### C BC #### [facility] [address] [address] [address] Gianna Rodgers MCH (RBC) [Entitic mass] 29.0 pg Normal 25.9-34.0 [facility] Comment on above: Performed By: #### C BC #### [facility] [address] [place] [address] Dr. Gianna Rodgers MCHC (RBC) [Mass/Vol] 33.4 g/dL Normal 29.9-35.2 [facility] Comment on above: Performed By: #### C BC #### [facility] [address] [place] [address] Dr. Gianna Rodgers MCV (RBC) [Entitic vol] 86.9 fL Normal 80.0-94.0 [facility] Comment on above: Performed By: #### C BC #### [facility] [address] [place] [address] Dr. Gianna Rodgers MONO # 0.7 103/ul Normal 0.3-0.8 [facility] Comment on above: Performed By: #### C BC #### [facility] [address] [place] [address] Dr. Gianna Rodgers Monocytes/100 WBC (Bld) 8.7 % Normal 1.7-12.0 [facility] Comment on above: Performed By: #### C BC #### [facility] [address] [place] [address] Dr. Gianna Rodgers NEUT # 5.4 103/ul Normal 1.4-6.5 [facility] Comment on above: Performed By: #### C BC #### [facility] [address] [place] [address] Dr. Gianna Rodgers Neutrophils/100 WBC (Bld) 72.0 % Normal 43.0-75.0 [facility] Comment on above: Performed By: #### C BC #### [facility] [address] [place] [address] Dr. Gianna Rodgers Platelet mean volume (Bld) [Entitic vol] 9.4 fL Critically low 9.5-13.5 [facility] Comment on above: Performed By: #### C BC #### [facility] [address] [address] [address] Gianna Rodgers PLT 385 103/ul Normal 150-450 [facility] Comment on above: Performed By: #### C BC #### [facility] [address] [address] [address] Gianna Rodgers RBC 5.20 106/ul Normal 4.70-6.10 [facility] Comment on above: Performed By: #### C BC #### [facility] [address] [address] [address] Gianna Rodgers WBC 7.5 103/ul Normal 4.0-11.0 [facility] Comment on above: Performed By: #### C BC #### [facility] [address] [place] [address] Dr. Gianna Rodgers CRPon 06-11-2022 CRP 3.8 mg/dL Critically high <=1.0 [facility] Comment on above: Performed By: #### P SASC, VITAD #### [facility] [address] [place] [address] Dr. Gianna Rodgers SED [facility] 2021 SED RATE 46 mm/hr Critically high <=20 [facility] Comment on above: Performed By: #### P ALBERTOC, VITAD #### [facility] [address] [place] [address] Dr. Gianna Rodgers XR KUB 1 VIEWon [...] by: MEÑO ARIZA Date: 2022-03-01 16:28 Normal [facility] Vital Signs Date Time Vital Sign Value Performing Clinician Ekaterina shankar 05-28-2024 10:11-0400 Blood Pressure Location Jasper BEE [facility] 05-28-2024 10:11-0400 Diastolic blood pressure 86 mm[Hg] Jasper BEE [facility] 05-28-2024 10:11-0400 Heart rate 94 /min Jasper BEE [facility] 05-28-2024 10:11-0400 Respiratory rate 16 /min Jasper BEE [facility] 05-28-2024 10:11-0400 Systolic blood pressure 146 mm[Hg] Jasper BEE [facility] 05-26-2023 12:36-0400 Diastolic blood pressure 100 mm[Hg] Jasper BEE [facility] 05-26-2023 12:36-0400 Mean blood pressure 117 mm[Hg] Jasper BEE [facility] 05-26-2023 12:36-0400 Systolic blood pressure 150 mm[Hg] Jasper BEE [facility] 05-26-2023 12:25-0400 Blood Pressure Location Jasper BEE [facility] 05-26-2023 12:25-0400 Diastolic blood pressure 91 mm[Hg] Jasper BEE [facility] 05-26-2023 12:25-0400 Heart rate 80 /min Jasper BEE [facility] 05-26-2023 12:25-0400 Systolic blood pressure 162 mm[Hg] Jasper BEE [facility] 11-22-2022 13:01-0500 Blood Pressure Location Mary Beth NILL [facility] 11-22-2022 13:01-0500 Diastolic blood pressure 96 mm[Hg] Mary Beth NILL [facility] 11-22-2022 13:01-0500 Heart rate 72 /min Mary Beth NILL [facility] 11-22-2022 13:01-0500 Respiratory rate 16 /min Mary Beth NILL [facility] 11-22-2022 13:01-0500 Systolic blood pressure 152 mm[Hg] Mary Beth NILL [facility] 02-22-2022 10:47-0400 Blood Pressure Location Jasper BEE [facility] 02-22-2022 10:47-0400 Diastolic blood pressure 81 mm[Hg] Jasper BEE [facility] 02-22-2022 10:47-0400 Heart rate 70 /min Jasper BEE [facility] 02-22-2022 10:47-0400 Respiratory rate 16 /min Jasper BEE [facility] 02-22-2022 10:47-0400 Systolic blood pressure 132 mm[Hg] Jasper BEE [facility] Encounters Encounter Date Encounter Type Care Provider Facility Start: 05-30-2025 ambulatory Jasper BEE Facili ty: Start: 05-31-2024 End: 05-31-2024 Lab Drop off Jasper BEE [facility] Start: 05-31-2024 End: 05-31-2024 ambulatory Jasper BEE Facility: Start: 05-31-2024 End: 05-31-2024 Patient encounter procedure Jasper BEE [facility] Start: 05-28-2024 End: 05-28-2024 ambulatory Jasper BEE Facility: Start: 05-28-2024 End: 05-28-2024 Patient encounter procedure Jasper BEE [facility] Start: 05-26-2023 End: 05-26-2023 Patient encounter procedure Jasper R GAEL [facility] Start: 02-19-2023 End: 02-20-[address] JASPER BEE . Facility:[facility] Start: 01-07-2023 End: 01-07-2023 Patient encounter procedure Mary Beth WEIR [facility] Start: 12-18-2022 End: 12-18-[address] MARY BETH WEIR . Facility:[facility] Start: 11-26-2022 End: 12-05-[address] ALANIS SALEEM . Facility:[facility] Start: 11-22-2022 End: 11-22-2022 Patient encounter procedure Mary Beth WEIR [facility] Start: 11-14-2022 End: 11-14-[address] ALANIS SALEEM . Facility:[facility] Start: 11-13-2022 End: 11-14-[address] ALANIS SALEEM . Facility:[facility] Start: 06-11-2022 End: 06-12-[address] ALANIS SALEEM . Facility:[facility] Start: 03-01-2022 End: 03-02-[address] JASPER BEE . Facility:[facility] Start: 02-22-2022 End: 02-22-2022 Patient encounter procedure Jasper BEE [facility] Procedures Date Procedure Procedure Detail Performing Clinician Start: 12-18-2022 Colonoscopy Mary Beth LIRIANO Start: 11-13-[address] ANNA SALEEM . Comment on above: Performed By: #### P SASC, VITAD #### [facility] [address] [place] [address] Dr. Gianna Rodgers Start: 03-01-2021 Extracorporeal shock [...] Immunizations Immunization Date Immunization Notes Care Provider Hernan martinez 01-16-2021 SARS-CoV-2 (COVID-19 ) mRNA BNT-162b2 vax Jasper BEE [facility] 12-27-2020 SARS-CoV-2 (COVID-19 ) mRNA BNT-162b2 vax Mary Beth HUANGWillem [facility] NEGATED: Highlighted row has not occurred!11-22-2022 influenza virus vaccine, unspecified formulation Mary Beth WEIR [facility] Payers Date Payer Category Payer Private Health Insurance [id number] 1960 Medicare [id number] 1960 Medicare [id number] 1955 Unknown [id number] 2.16.84 [id number] 1955 Unknown [id number] 2.16.84 [id number] 1954 Unknown [id number] 2.16.84 [id number] 1954 Unknown [id number] 2.16.84 [id number] 1954 Unknown [id number] 2.16.84 [id number] 1954 Unknown [id number] 2.16.84 [id number] 1954 Unknown [id number] 2.16.84 [id number] 1954 Unknown [id number] 2.16.8 [id number] 1954 Unknown [id number] 2.16.8 [id number] 1954 Unknown [id number] 2.16.8 [id number] 1954 Unknown [id number] 2.16.8 [id number] Social History Date Type Detail Facility Start: 07-26-2019 End: 05-28-2024 Tobacco smoking status Never smoked tobacco (finding) [facility] Tobacco smoking status Never [facility] Sex Assigned At Male [facility] Functional Status Date Assessment Result Facility 05-28-2024 Functional Status N/A [facility] 05-26-2023 Functional Status N/A [facility] 11-22-2022 Functional Status N/A [facility] Clinical Notes 02-22-2022 to 05-28-2024 Note Date & Type Note Facility 05-28-2024 Hospital Discharge instructions Patient Education 05/28/2024 10:45:01 Benign Prostatic Hyperplasia Benign Prostatic Hyperplasia Benign prostatic hyperplasia (BPH) is an enlarged prostate gland that is caused by the normal aging process. The prostate may get bigger as a man gets older. The condition is not caused by cancer. The prostate is a walnut-sized gland that is involved in the production of semen. It is located in front of the rectum and below the bladder. The bladder stores urine. The urethra carries stored urine out of the body. An enlarged prostate can press on the urethra. This can make it harder to pass urine. The buildup of urine in the bladder can cause infection. Back pressure and infection may progress to bladder damage and kidney (renal) failure. What are the causes? This condition is part of the normal aging process. However, not all men develop problems from this condition. If the prostate enlarges away from the urethra, urine flow will not be blocked. If it enlarges toward the urethra and compresses it, there will be problems passing urine. What increases the risk? This condition is more likely to develop in men older than 50 years. What are the signs or symptoms? Symptoms of this condition include: Getting up often during the night to urinate. Needing to urinate frequently during the day. Difficulty starting urine flow. Decrease in size and strength of your urine stream. Leaking (dribbling) after urinating. Inability to pass urine. This needs immediate treatment. Inability to completely empty your bladder. Pain when you pass urine. This is more common if there is also an infection. Urinary tract infection (UTI). How is this diagnosed? This condition is diagnosed based on your medical history, a physical exam, and your symptoms. Tests will also be done, such as: A post-void bladder scan. This measures any amount of urine that may remain in your bladder after you finish urinating. A digital rectal exam. In a rectal exam, your health care provider checks your prostate by putting a lubricated, gloved finger into your rectum to feel the back of your prostate gland. This exam detects the size of your gland and any abnormal lumps or growths. An exam of your urine (urinalysis). A prostate specific antigen (PSA) screening. This is a blood test used to screen for prostate cancer. An ultrasound. This test uses sound waves to electronically produce a picture of your prostate gland. Your health care provider may refer you to a specialist in kidney and prostate diseases (urologist). How is this treated? Once symptoms begin, your health care provider will monitor your condition (active surveillance or watchful waiting). Treatment for this condition will depend on the severity of your condition. Treatment may include: Observation and yearly exams. This may be the only treatment needed if your condition and symptoms are mild. Medicines to relieve your symptoms, including: ?Medicines to shrink the prostate. ?Medicines to relax the muscle of the prostate. Surgery in severe cases. Surgery may include: ?Prostatectomy. In this procedure, the prostate tissue is removed completely through an open incision or with a laparoscope or robotics. ?Transurethral resection of the prostate (TURP). In this procedure, a tool is inserted through the opening at the tip of the penis (urethra). It is used to cut away tissue of the inner core of the prostate. The pieces are removed through the same opening of the penis. This removes the blockage. ?Transurethral incision (TUIP). In this procedure, small cuts are made in the prostate. This lessens the prostate's pressure on the urethra. ?Transurethral microwave thermotherapy (TUMT). This procedure uses microwaves to create heat. The heat destroys and removes a small amount of prostate tissue. ?Transurethral needle ablation (TUNA). This procedure uses radio frequencies to destroy and remove a small amount of prostate tissue. ?Interstitial laser coagulation (ILC). This procedure uses a laser to destroy and remove a small amount of prostate tissue. ?Transurethral electrovaporization (TUVP). This procedure uses electrodes to destroy and remove a small amount of prostate tissue. ?Prostatic urethral lift. This procedure inserts an implant to push the lobes of the prostate away from the urethra. Follow these instructions at home: Take [id number] and prescription medicines only as told by your health care provider. Monitor your symptoms for any changes. Contact your health care provider with any changes. Avoid drinking large amounts of liquid before going to bed or out in public. Avoid or reduce how much caffeine or alcohol you drink. Give yourself time when you urinate. Keep all follow-up visits. This is important. Contact a health care provider if: You have unexplained back pain. Your symptoms do not get better with treatment. You develop side effects from the medicine you are taking. Your urine becomes very dark or has a bad smell. Your lower abdomen becomes distended and you have trouble passing urine. Get help right away if: You have a fever or chills. You suddenly cannot urinate. You feel light-headed or very dizzy, or you faint. There are large amounts of blood or clots in your urine. Your urinary problems become hard to manage. You develop moderate to severe low back or flank pain. The flank is the side of your body between the ribs and the hip. These symptoms may be an emergency. Get help right away. Call 911. Do not wait to see if the symptoms will go away. Do not drive yourself to the hospital. Summary Benign prostatic hyperplasia (BPH) is an enlarged prostate that is caused by the normal aging process. It is not caused by cancer. An enlarged prostate can press on the urethra. This can make it hard to pass urine. This condition is more likely to develop in men older than 50 years. Get help right away if you suddenly cannot urinate. This information is not intended to replace advice given to you by your health care provider. Make sure you discuss any questions you have with your health care provider. Document Revised: 04/17/2022 Document Reviewed: 04/17/2022 [employer] Patient Education 2022 [employer]. Follow Up Care 05/26/2023 13:38:43 With:GAEL KRISHNAMURTHY Jasper Panchal, URL Address: [address] [place], [place] [id number]- When: Unknown [facility]anda 05-28-2024 Note Patient Education Urology Benign Prostatic Hyperplasia Benign prostatic hyperplasia (BPH) is an enlarged prostate gland that is caused by the normal aging process. The prostate may get bigger as a man gets older. The condition is not caused by cancer. The prostate is a walnut-sized gland that is involved in the production of semen. It is located in front of the rectum and below the bladder. The bladder stores urine. The urethra carries stored urine out of the body. An enlarged prostate can press on the urethra. This can make it harder to pass urine. The buildup of urine in the bladder can cause infection. Back pressure and infection may progress to bladder damage and kidney (renal) failure. What are the causes? This condition is part of the normal aging process. However, not all men develop problems from this condition. If the prostate enlarges away from the urethra, urine flow will not be blocked. If it enlarges toward the urethra and compresses it, there will be problems passing urine. What increases the risk? This condition is more likely to develop in men older than 50 years. What are the signs or symptoms? Symptoms of this condition include: ? Getting up often during the night to urinate. ? Needing to urinate frequently during the day. ? Difficulty starting urine flow. ? Decrease in size and strength of your urine stream. ? Leaking (dribbling) after urinating. ? Inability to pass urine. This needs immediate treatment. ? Inability to completely empty your bladder. ? Pain when you pass urine. This is more common if there is also an infection. ? Urinary tract infection (UTI). How is this diagnosed? This condition is diagnosed based on your medical history, a physical exam, and your symptoms. Tests will also be done, such as: ? A post-void bladder scan. This measures any amount of urine that may remain in your bladder after you finish urinating. ? A digital rectal exam. In a rectal exam, your health care provider checks your prostate by putting a lubricated, gloved finger into your rectum to feel the back of your prostate gland. This exam detects the size of your gland and any abnormal lumps or growths. ? An exam of your urine (urinalysis). ? A prostate specific antigen (PSA) screening. This is a blood test used to screen for prostate cancer. ? An ultrasound. This test uses sound waves to electronically produce a picture of your prostate gland. Your health care provider may refer you to a specialist in kidney and prostate diseases (urologist). How is this treated? Once symptoms begin, your health care provider will monitor your condition (active surveillance or watchful waiting). Treatment for this condition will depend on the severity of your condition. Treatment may include: ? Observation and yearly exams. This may be the only treatment needed if your condition and symptoms are mild. ? Medicines to relieve your symptoms, including: ? Medicines to shrink the prostate. ? Medicines to relax the muscle of the prostate. ? Surgery in severe cases. Surgery may include: ? Prostatectomy. In this procedure, the prostate tissue is removed completely through an open incision or with a laparoscope or robotics. ? Transurethral resection of the prostate (TURP). In this procedure, a tool is inserted through the opening at the tip of the penis (urethra). It is used to cut away tissue of the inner core of the prostate. The pieces are removed through the same opening of the penis. This removes the blockage. ? Transurethral incision (TUIP). In this procedure, small cuts are made in the prostate. This lessens the prostate's pressure on the urethra. ? Transurethral microwave thermotherapy (TUMT). This procedure uses microwaves to create heat. The heat destroys and removes a small amount of prostate tissue. ? Transurethral needle ablation (TUNA). This procedure uses radio frequencies to destroy and remove a small amount of prostate tissue. ? Interstitial laser coagulation (ILC). This procedure uses a laser to destroy and remove a small amount of prostate tissue. ? Transurethral electrovaporization (TUVP). This procedure uses electrodes to destroy and remove a small amount of prostate tissue. ? Prostatic urethral lift. This procedure inserts an implant to push the lobes of the prostate away from the urethra. Follow these instructions at home: ? Take vmyb-aos-agzpfob and prescription medicines only as told by your health care provider. ? Monitor your symptoms for any changes. Contact your health care provider with any changes. ? Avoid drinking large amounts of liquid before going to bed or out in public. ? Avoid or reduce how much caffeine or alcohol you drink. ? Give yourself time when you urinate. ? Keep all follow-up visits. This is important. Contact a health care provider if: ? You have unexplained back pain. ? Your symptoms do not get better with treatment. ? You develop side effec (more content not included)... [facility] 05-26-2023 Hospital Discharge instructions Patient Education 05/26/2023 13:28:39 Dietary Guidelines [...] include: ?8 oz (237 mL) of milk, irdgpzh-nfnxjabopeqr-suabf milk, and calcium-fortifiedfruit juice. Calcium-fortified means that [...] ?Spinach (cooked), rhubarb, beets, sweet potatoes, and Zimbabwean chard. ?Peanuts. ?Potato chips, south sudanese fries, and baked potatoes with skin on. ?Nuts and nut products. ?Chocolate. If you regularly take a diuretic medicine, make sure to eat at least 1 or 2 servings of fruits or vegetables that are high in potassium each day. These include: ?Avocado. ?Banana. ?Clyde, prune, carrot, or tomato juice. ?Baked potato. [...] magnesium, fish oil, or vitamin B6. Take xsse-ujo-qzhdgiq and prescription medicines only as told by [...] Casseroles. Pizza. Lasagna. Frozen meals. Potato chips. Bangladeshi fries. The items listed above may not [...] provider. Document Revised: 06/10/2022 Document Reviewed: 06/10/2022 [employer] Patient Education 2022 [employer]. Follow Up Care 02/22/2022 11:51:46 With:GAEL KRISHNAMURTHY, Jasper Panchal, URL Address: [facility] [address] [place] [address]- [phone] When:Within 1 Year(s) Comments:JOAN [facility] 12-18-2022 Note OPERATIVE NOTE OPERATION DATE: 12/18/2022 [...] in good condition. CC: Alanis Saleem M.D. [facility] 02-22-2022 Hospital Discharge instructions Patient Education 02/22/2022 08:11:52 Kidney Stones, Nrwn-up-Ycxw Kidney Stones Kidney stones are rock-like masses [...] Follow these instructions at home: Medicines Take japl-opp-rzguvvw and prescription medicines only as told by [...] 03/17/2009 Document Revised: 02/15/2020 Document Reviewed: 02/15/2020 [employer] Patient Education 2020 [employer]. Follow Up Care 03/20/2021 09:44:29 With:Jasper BEE MD, URL Address: [facility] [address], [place] [address]- When: Unknown [facility] Evaluation + Plan note Future Appointments Appointment Date:02/24/2023 11:15:00 AM Scheduled Provider:Jasper BEE MD Location:[facility] Appointment Type:URO Office Visit [facility] Evaluation + Plan note Future Appointments Appointment Date:05/28/2024 10:15:00 AM Scheduled Provider:Jasper BEE MD [facility] Appointment Type:URO Office Visit [facility] Evaluation + Plan note Future Appointments Appointment Date:05/31/2024 10:00:00 AM Scheduled Provider: Location[facility] Appointment Type:URO Nurse Visit Appointment Date:05/30/2025 11:15:00 AM Scheduled Provider:Jasper BEE MD Location:[facility] Appointment Type:URO Office Visit [facility] Evaluation + Plan note Future Appointments Appointment Date:05/30/2025 11:15:00 AM Scheduled Provider:Jasper BEE MD Location:[facility] Appointment Type:URO Office Visit [facility] Hospital course Narrative No data available for this section [facility] Hospital Discharge instructions No data available for this section General Surgery [place] note No data available for this section General Surgery [place] Summary Purpose Family History No Family History Records Found No data available for this section No data available for this section No data available for this section No Family History Records FoundNo Family History Records Found Advance Directives No Advanced Directives Records FoundNo Advanced Directives Records FoundNo Advanced Directives Records Found Additional Source Comments Patient Care team informatio n (unrecognized section and content) Personnel Name: Alanis Saleem MD Address: Address: [address] [place] [address] Personnel Name: Alanis Saleem MD Address: Address: [address] [place] [address] Personnel Name: Alanis Saleem MD Address: Address: [address] [place] [address] Personnel Name: Alanis Saleem MD Address: Address: [address] [place] [address] Personnel Name: Alanis Saleem MD Address: Address: [address] [place] [address] Personnel Name: Alanis Saleem MD Address: Address: [address] [place] [address] (unrecognized sect ion and content) No Status Records FoundNo Status Records FoundNo Status Records Found INFORMATION SOURCE (unrecogn ized section and content) DATE CREATED AUTHOR 02/23/2023 [facility] DATE CREATED AUTHOR AUTHOR'S ORGANIZ ATION 06/02/2024 [facility] DATE CREATED AUTHOR AUTHOR'S ORGANIZ ATION 06/07/2024 [facility] FOR RECORDS PERTAINING TO PATIENTS WHO ARE [...] BE BASED ON THE PRIMARY CLINICAL RECORDS. [facility] [employer], [facility]. provides no warranty or guarantee of the accuracy or completeness of information in this document.
[2024-12-15 15:22] LABS: Basophils Absolute Auto 0.1 10^3/uL (0.0-0.1); Eosinophils Absolute Auto 0.1 10^3/uL (0.0-0.7); Eosinophils Percent Auto 1.7 % (0.9-7.0); Hematocrit 51.2 % (42.0-54.0); Hemoglobin 16.9 g/dL (14.0-18.0); Immature Granulocytes Abs Auto 0.01 10^3/uL (0.00-0.03); Immature Granulocytes Pct Auto 0.2 % (0.0-0.5); Lymphocytes Absolute Auto 1.5 10^3/uL (1.2-3.8); Lymphocytes Percent Auto 26.5 % (20.5-60.0); Mean Corpuscular Hemoglobin 29.1 pg (25.9-34.0); Mean Corpuscular Volume 88.1 fL (80.0-94.0); Mean Platelet Volume 10.7 fL (9.5-13.5); Monocytes Absolute Auto 0.5 10^3/uL (0.3-0.8); Monocytes Percent Auto 8.1 % (1.7-12.0); Neutrophils Absolute Auto 3.6 10^3/uL (1.4-6.5); Neutrophils Percent Auto 62.5 % (43.0-75.0); Platelet Count 252 10^3/uL (150-450); Red Blood Count 5.81 10^6/uL (4.70-6.10); Red Cell Distribution Width 13.9 % (11.0-15.0); White Blood Count 5.8 10^3/uL (4.0-11.0)
[2024-12-15 15:43] LABS: Estimated Average Glucose 111 mg/dL; Glycohemoglobin A1C 5.5 % (4.5-6.2)
[2024-12-15 16:00] LABS: Alanine Aminotransferase 21 U/L (16-63); Albumin Globulin Ratio 1.3; Alkaline Phosphatase 72 U/L (46-116); Anion Gap 13.4; Aspartate Amino Transferase 16 U/L (15-37); BUN Creatinine Ratio 11.9; Bilirubin Total 2.1 mg/dL (0.2-1.0); Calcium 9.4 mg/dL (8.5-10.1); Carbon Dioxide 26.7 mmol/L (21.0-32.0); Chloride 104 mmol/L (98-107); Chol HDL Ratio 3.3; Cholesterol 205 mg/dL (<=200); Estimated GFR (African America >60 (>=60 mL/min/1.73m^2); Estimated GFR (Non-African Ame 53 (>=60 mL/min/1.73m^2); Free T3 2.97 pg/mL (2.18-3.98); Glucose 114 mg/dL (74-106); HDL Cholesterol 63 mg/dL (40-60); Potassium 4.1 mmol/L (3.5-5.1); Prostate Specific Antigen Scrn 1.38 ng/mL (<=4.00); Sodium 140 mmol/L (136-145); Thyroid Stimulating Hormone 0.512 uIU/mL (0.358-3.740); Triglycerides 90 mg/dL (<=150)
== END 2024-12-15 14:05 | disposition home or self-care (01) ==
LOC: LAB 14:05
PROVIDERS: PCP Family Medicine; Visit Provider Family Medicine
DX: R53.83 Other fatigue (principal); E11.8 Type 2 diabetes mellitus with unspecified complications; N40.0 Benign prostatic hyperplasia without lower urinary tract symptoms; E78.5 Hyperlipidemia, unspecified; E03.9 Hypothyroidism, unspecified; I10 Essential (primary) hypertension; Z12.5 Encounter for screening for malignant neoplasm of prostate
CPT/HCPCS: 36415; 80053; 80061; 83036; 84436; 84443; 84481; 85025; G0103

== ENCOUNTER 2025-06-14 13:33 | Outpatient (OUT) | payer MEDICARE, SELFPAY ==
--- NOTE | 2025-06-14 13:45 | XR_ITS ---
The [address] [address] Patient Name: GIL ALMEIDA MRN: [id number] date: 1955 Sex: M Assigned Patient Location: [facility] Current Patient Location: [facility] Accession/Order Number: [id number] Exam Date: 06/14/2025 13:42 Report Date: 06/14/2025 14:17 At the request of: DENA MAYO MD Procedure: XR abdomen 1V KUB: CLINICAL INFORMATION: Previous stones. COMPARISON: KUB 05/26/2024 FINDINGS: At least 4 stones are identified projecting over the left kidney largest measuring 3 mm. Questionable punctate stones are seen projecting over the right kidney. Phleboliths are seen involving the pelvis. No bowel obstruction or free air. XR/XR abdomen 1V IMPRESSION: BILATERAL NEPHROLITHIASIS. FINDINGS ARE SIMILAR TO THE PRIOR STUDY. Impression dictated by: Paulo lCeveland Jr. DJose LuisOJose Luis 06/14/2025 2:17 PM Dictation Location: [place] [address] Electronically authenticated by: [id number] Y Date: 06/14/2025 14:17
--- OUTSIDE RECORDS SUMMARY | 2025-06-14 13:58 | XMS_ITS | CCD ---
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[employer] Name Role Phone Alanis Saleem Primary Care [...] DR JAIRO Panchal Consulting Unavailable BEE, Jasper Ansley Admitting Unavailable BEE, Jasper R Attending Unavailable BEE, Jasper R Attending Unavailable BEE, Jasper R Attending Unavailable BEE, Jasper R Attending Unavailable BEE, Jasper R Admitting Unavailable BEE, Jasper R Attending Unavailable Allergies Allergy Classification Reported Allergen(s) Allergy Type Date of Onset Reaction(s) Facility (1 source) bee venom Drug allergy (disorder) [facility] Repository (1 source) No Known Medication Allergies; Translations: [No Known Medication Allergies] Propensity to adverse reactions (disorder) [facility] Rep[facility] Medications Current Medications Medication Drug [...] 3 Chronic Other aftercare (1 source) Other mcfp (current) drug therapy; Translations: [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 PSA Totalon 05-31-2024 Prostate specific Ag [Mass/Vol] 1.2 ng/mL Normal 0.1-3.5 [facility] Comment on above: Result Comment: The concentration of PSA determined by different manufacturers can vary due to differences in assay methods and reagent specificity. Values obtained from different assay methods cannot be used interchangeably. The methodology used for this result was chemiluminescence using [employer]w [employer]'s Access Hybritech PSA reagent. Performed By: #### 1 [id number] #### [facility] [address] [place] [address] Urology Office/Clinic Noteon 05-28-2024 Urology Office/Clinic Note Urology Office/Clinic Note Chief Complaint 1 year follow up HPI Staff 1 yr w/ KUB no report yet but there is an image at [facility] 05/26/24 Dx: BPH with elevated PSA, kidney stone, renal cyst, hx of kidney stones, bladder stones. *Finasteride 5mg qd and Tamsulosin 0.4mg bid. Last PSA 11/13/22 - 1.40 (2.80 with Finasteride). Monitored by PCP. KUB done 05/26/24 at [facility] - report still pending at time [...] CT AP w con done 03/06/23 at [facility] showed nonobstructing bilateral renal stones and 2 adjacent 4 mm stones within posterior right urinary bladder. KUB 05/26/24 [facility] - report pending. On review, several punctate stones on the left. Possible R sided stone, large stool burden. -KUB in 12 mos 4. Renal cyst (N28.1: Cyst of kidney, acquired) Per KUB done 02/03/[address], 9.5cm right renal cyst [2] CT AP w con done 03/06/23 at [facility] showed a 10 cm right superior pole renal cyst and stable, small left superior pole renal cysts. 5. Bladder stones (N21.0: Calculus in bladder) CT AP w con done 03/06/23 at [facility] showed 2 adjacent 4mm stones within posterior R bladder. Follow-up With When Contact Information GAEL KRISHNAMURTHY, Jasper Panchal, URL [facility] [place] [address]- Additional Instructions: 1 year w/ KUB Patient [...] (05/04/2019), Litho (more content not included)... Normal [facility] Comment on above: Result Comment: Elec [...] JAIRO WAN Date: 2023-02-20 07:16 Normal [facility] TESS by IFAon 11-18-2022 Antinuclear Antibodies, IFA Negative Normal [facility] Comment on above: Result Comment: Nega tive <1:80 Borderline 1:80 Positive >1:80 ICAP nomenclature: AC-0 For more information about Hep-2 cell patterns use ANApatterns.org, the official website for the International Consensus on Antinuclear Antibody (TESS) Patterns (ICAP). Performed By: #### A NAIFA #### [facility] [address] [place] [address] Dr. Gianna Rodgers ANTISTREPTOLYSIN O AB (ASO)o n 11-14-2022 Antistreptolysin O Ab 26.9 IU/mL Normal 0.0-200.0 [facility] Comment on above: Performed By: #### A SOAB #### [facility] [address] [place] [address] Dr. Gianna Rodgers INSULINon 11-14-2022 Insulin 17.4 uIU/mL Normal 2.6-24.9 [facility] Comment on above: Performed By: #### P SASC, VITAD #### [facility] [address] [place] [address] Dr. Gianna Rodgers LYME DISEASE AB EIA W REFLEX on 11-14-2022 Lyme Total Antibody,EIA Negative Normal Negative [facility] Comment on above: Result Comment: Lyme [...] Performed By: #### P SASC, VITAD #### [facility] [address] [place] [address] Dr. Gianna Rodgers OCC BLD IMMUNO SCREENon OCCULT BLOOD Positive Abnormal NEGATIVE [facility] Comment on above: Performed By: #### P SASC, VITAD #### [facility] [address] [place] [address] Dr. Gianna Rodgers RHEUMATOID FACTORon 11-14-19 RA Latex Turbid. <10.0 Normal <14.0 [facility] Comment on above: Performed By: #### P SASC, VITAD #### [facility] [address] [place] [address] Dr. Gianna Rodgers TESTOSTERONE, TOTALon 2022 Testosterone [Mass/Vol] 329 ng/dL Normal 264-916 [facility] Comment on above: Result Comment: Adul t male reference interval is based on a population of healthy nonobese males (BMI <30) between 19 and 39 years old. Karen et.al. JCEM 2017,102;7688-8906. PMID: [id number]. Performed By: #### P SASC, VITAD #### [facility] [address] [place] [address] Dr. Gianna Rodgers CBC AUTO DIFFon 11-13-2022 BASO # 0.0 103/ul Normal 0.0-0.1 [facility] Comment on above: Performed By: #### P SASC, VITAD #### [facility] [address] [place] [address] Dr. Gianna Rodgers Basophils/100 WBC (Bld) 0.4 % Normal 0.2-2.0 [facility] Comment on above: Performed By: #### P SASC, VITAD #### [facility] [address] [place] [address] Dr. Gianna Rodgers EO # 0.1 103/ul Normal 0.0-0.7 [facility] Comment on above: Performed By: #### P SASC, VITAD #### [facility] [address] [place] [address] Dr. Gianna Rodgers Eosinophils/100 WBC (Bld) 1.0 % Normal 0.9-7.0 [facility] Comment on above: Performed By: #### P SASC, VITAD #### [facility] [address] [place] [address] Dr. Gianna Rodgers Erythrocyte distribution width (RBC) [Ratio] 13.8 % Normal 11.0-15.0 [facility] Comment on above: Performed By: #### P SASC, VITAD #### [facility] [address] [place] [address] Dr. Gianna Rodgers Hematocrit (Bld) [Volume fraction] 48.1 % Normal 42.0-54.0 [facility] Comment on above: Performed By: #### P SASC, VITAD #### [facility] [address] [place] [address] Dr. Gianna Rodgers Hemoglobin (Bld) [Mass/Vol] 15.8 g/dL Normal 14.0-18.0 [facility] Comment on above: Performed By: #### P SASC, VITAD #### [facility] [address] [place] [address] Dr. Gianna Rodgers IG # 0.02 10e3/ul Normal 0.00-0.03 [facility] Comment on above: Performed By: #### P SASC, VITAD #### [facility] [address] [place] [address] Dr. Gianna oRdgers IG % 0.2 % Normal 0.0-0.5 [facility] Comment on above: Performed By: #### P SASC, VITAD #### [facility] [address] [place] [address] Dr. Gianna Rodgers LYMPH # 2.3 103/ul Normal 1.2-3.8 [facility] Comment on above: Performed By: #### P SASC, VITAD #### [facility] [address] [place] [address] Dr. Gianna Rodgers Lymphocytes/100 WBC (Bld) 24.0 % Normal 20.5-60.0 [facility] Comment on above: Performed By: #### P SASC, VITAD #### [facility] [address] [place] [address] Dr. Gianna Rodgers MANUAL DIFF REQ NO Normal [facility] Comment on above: Performed By: #### P SASC, VITAD #### [facility] [address] [place] [address] Dr. Gianna Rodgers MCH (RBC) [Entitic mass] 28.8 pg Normal 25.9-34.0 [facility] Comment on above: Performed By: #### P SASC, VITAD #### [facility] [address] [place] [address] Dr. Gianna Rodgers MCHC (RBC) [Mass/Vol] 32.8 g/dL Normal 29.9-35.2 [facility] Comment on above: Performed By: #### P SASC, VITAD #### [facility] [address] [place] [address] Dr. Gianna Rodgers MCV (RBC) [Entitic vol] 87.6 fL Normal 80.0-94.0 [facility] Comment on above: Performed By: #### P SASC, VITAD #### [facility] [address] [place] [address] Dr. Gianna Rodgers MONO # 0.8 103/ul Normal 0.3-0.8 [facility] Comment on above: Performed By: #### P SASC, VITAD #### [facility] [address] [place] [address] Dr. Gianna Rodgers Monocytes/100 WBC (Bld) 8.5 % Normal 1.7-12.0 [facility] Comment on above: Performed By: #### P SASC, VITAD #### [facility] [address] [place] [address] Dr. Gianna Rodgers NEUT # 6.2 103/ul Normal 1.4-6.5 [facility] Comment on above: Performed By: #### P SASC, VITAD #### [facility] [address] [place] [address] Dr. Gianna Rodgers Neutrophils/100 WBC (Bld) 65.9 % Normal 43.0-75.0 [facility] Comment on above: Performed By: #### P SASC, VITAD #### [facility] [address] [place] [address] Dr. Gianna Rodgers Platelet mean volume (Bld) [Entitic vol] 10.2 fL Normal 9.5-13.5 [facility] Comment on above: Performed By: #### P SASC, VITAD #### [facility] [address] [place] [address] Dr. Gianna Rodgers PLT 304 103/ul Normal 150-450 [facility] Comment on above: Performed By: #### P SASC, VITAD #### [facility] [address] [place] [address] Dr. Gianna Rodgers RBC 5.49 106/ul Normal 4.70-6.10 [facility] Comment on above: Performed By: #### P SASC, VITAD #### [facility] [address] [place] [address] Dr. Gianna Rodgers WBC 9.4 103/ul Normal 4.0-11.0 [facility] Comment on above: Performed By: #### P SASC, VITAD #### [facility] [address] [place] [address] Dr. Gianna Rodgers CRPon 11-13-2022 CRP [Mass/Vol] mg/L Normal <=1.0 [facility] Comment on above: Performed By: #### C RP, URIC, T7, CMP, LIPID, TSH #### [facility] [address] [place] [address] Dr. Gianna Rodgers FREE THYROXINE INDEX T7on FTI 2.56 Normal 1.30-4.50 [facility] Comment on above: Performed By: #### P SASC, VITAD #### [facility] [address] [place] [address] Dr. Gianna Rodgers T3U 35.0 % Normal 33.0-40.0 [facility] Comment on above: Performed By: #### P SASC, VITAD #### [facility] [address] [address] [address] Gianna Rodgers T4 [Mass/Vol] 7.30 ug/dL Normal 4.50-12.[address] [facility] Comment on above: Performed By: #### P SONJA, VITAD #### [facility] [address] [address] [address] Gianna Rodgers GLYCOHEMOGLOBIN A1Con 2022 ADA RECOMMENDATION SEE BELOW Normal [facility] Comment on above: Result Comment: ADA RECOMMENDED LIMIT 4.0 - 6.0 ADA THERAPEUTIC TARGET < 7.0 ACTION SUGGESTED > 7.0 Performed By: #### A 1C #### [facility] [address] [address] [address] Gianna Rodgers Glucose [Mass/Vol] 146 mg/dL Normal [facility] Comment on above: Performed By: #### A 1C #### [facility] [address] [place] [address] Dr. Gianna Rodgers HbA1c (Bld) [Mass fraction] 6.7 % Critically high 4.5-6.2 [facility] Comment on above: Performed By: #### A 1C #### [facility] [address] [address] [address] Gianna Rodgers LIPID PROFILEon 11-13-2022 CHOL-HDL RATIO NORM SEE BELOW Normal [facility] Comment on above: Result Comment: 3.3 - 4.4 LOW RISK 4.4 - 7.1 AVERAGE RISK 7.1 - 11.0 MODERATE RISK >11.0 HIGH RISK Performed By: #### P SONJA, VITAD #### [facility] [address] [place] [address] Dr. Gianna Rodgers Cholesterol [Mass/Vol] 184 mg/dL Normal <=200 [facility] Comment on above: Performed By: #### P ALBERTOC, VITAD #### [facility] [address] [place] [address] Dr. Gianna Rodgers Cholesterol in HDL [Mass/Vol] 66 mg/dL Critically high 40-60 [facility] Comment on above: Performed By: #### P ALBERTOC, VITAD #### [facility] [address] [place] [address] Dr. Gianna Rodgers Cholesterol in LDL [Mass/Vol] 100.0 mg/dL Normal [facility] Comment on above: Performed By: #### P SASC, VITAD #### [facility] [address] [place] [address] Dr. Gianna Rodgers Cholesterol.total/Cho lesterol in HDL [Mass ratio] 2.8 {ratio} Normal [facility] Comment on above: Performed By: #### P SASC, VITAD #### [facility] [address] [place] [address] Dr. Gianna Rodgers HDL NORMAL > or = 60 mg/dl - LO W CARDIOVASCULAR RISK <40 mg/dl - HIGH CARDIOVASCULAR RISK Normal [facility] Comment on above: Performed By: #### P ALBERTOC, VITAD #### [facility] [address] [place] [address] Dr. Gianna Rodgers LDL CALC NORMAL SEE BELOW Normal [facility] Comment on above: Result Comment: <100 mg/dl OPTIMAL 100 - 129 mg/dl NEAR OR ABOVE OPTIMAL 130 - 159 mg/dl BORDERLINE HIGH 160 - 189 mg/dl HIGH >190 mg/dl VERY HIGH Performed By: #### P SASC, VITAD #### [facility] [address] [place] [address] Dr. Gianna Rodgers Triglyceride [Mass/Vol] 90 mg/dL Normal <=150 [facility] Comment on above: Performed By: #### P SASC, VITAD #### [facility] [address] [place] [address] Dr. Gianna Rodgers VLDL CALC 18.0 mg/dL Normal [facility] Comment on above: Performed By: #### P SASC, VITAD #### [facility] [address] [place] [address] Dr. Gianna Rodgers PROF 14(COMP METB)on 023 Albumin [Mass/Vol] 3.8 g/dL Normal 3.4-5.0 [facility] Comment on above: Performed By: #### C RP, URIC, T7, CMP, LIPID, TSH #### [facility] [address] [place] [address] Dr. Gianna Rodgers Albumin/Globulin [Mass ratio] 1.2 {ratio} Normal [facility] Comment on above: Performed By: #### C RP, URIC, T7, CMP, LIPID, TSH #### [facility] [address] [place] [address] Dr. Gianna Rodgers ALP [Catalytic activity/Vol] 74 U/L Normal 46-116 [facility] Comment on above: Performed By: #### C RP, URIC, T7, CMP, LIPID, TSH #### [facility] [address] [place] [address] Dr. Gianna Rodgers ALT [Catalytic activity/Vol] 32 U/L Normal 16-63 [facility] Comment on above: Performed By: #### C RP, URIC, T7, CMP, LIPID, TSH #### [facility] [address] [place] [address] Dr. Gianna Rodgers Anion gap [Moles/Vol] 12.7 mmol/L Normal [place] Comment on above: Performed By: #### C RP, URIC, T7, CMP, LIPID, TSH #### [facility] [address] [place] [address] Dr. Gianna Rodgers AST [Catalytic activity/Vol] 16 U/L Normal 15-37 [facility] Comment on above: Performed By: #### C RP, URIC, T7, CMP, LIPID, TSH #### [facility] [address] [place] [address] Dr. Gianna Rodgers Bilirubin [Mass/Vol] 2.1 mg/dL Critically high 0.2-1.0 [facility] Comment on above: Performed By: #### C RP, URIC, T7, CMP, LIPID, TSH #### [facility] [address] [place] [address] Dr. Gianna Rodgers Calcium [Mass/Vol] 9.5 mg/dL Normal 8.5-10.1 [facility] Comment on above: Performed By: #### C RP, URIC, T7, CMP, LIPID, TSH #### [facility] [address] [place] [address] Dr. Gianna Rodgers Chloride [Moles/Vol] 102 mmol/L Normal 98-107 [facility] Comment on above: Performed By: #### C RP, URIC, T7, CMP, LIPID, TSH #### [facility] [address] [address] [address] Gianna Rodgers CO2 [Moles/Vol] 27.7 mmol/L Normal 21.0-32.0 [facility] Comment on above: Performed By: #### C RP, URIC, T7, CMP, LIPID, TSH #### [facility] [address] [address] [address] Gianna Rodgers Creatinine [Mass/Vol] 1.08 mg/dL Normal 0.70-1.30 [facility] Comment on above: Performed By: #### C RP, URIC, T7, CMP, LIPID, TSH #### [facility] [address] [place] [address] Dr. Gianna Rodgers EGFR-AF GUAMANIAN >60 Normal >=60 [facility] Comment on above: Performed By: #### C RP, URIC, T7, CMP, LIPID, TSH #### [facility] [address] [place] [address] Dr. Gianna Rodgers EGFR-NON AF GUAMANIAN >60 Normal >=60 [facility] Comment on above: Performed By: #### C RP, URIC, T7, CMP, LIPID, TSH #### [facility] [address] [place] [address] Dr. Gianna Rodgers Globulin (S) [Mass/Vol] 3.2 g/dL Normal [facility] Comment on above: Performed By: #### C RP, URIC, T7, CMP, LIPID, TSH #### [facility] [address] [address] [address] Gianna Rodgers Glucose [Mass/Vol] 135 mg/dL Critically high 74-106 [facility] Comment on above: Performed By: #### C RP, URIC, T7, CMP, LIPID, TSH #### [facility] [address] [address] [address] Gianna Rodgers Potassium [Moles/Vol] 3.4 mmol/L Critically low 3.5-5.1 [facility] Comment on above: Performed By: #### C RP, URIC, T7, CMP, LIPID, TSH #### [facility] [address] [place] [address] Dr. Gianna Rodgers Protein [Mass/Vol] 7.0 g/dL Normal 6.4-8.2 [facility] Comment on above: Performed By: #### C RP, URIC, T7, CMP, LIPID, TSH #### [facility] [address] [place] [address] Dr. Gianna Rodgers Sodium [Moles/Vol] 139 mmol/L Normal 136-145 [facility] Comment on above: Performed By: #### C RP, URIC, T7, CMP, LIPID, TSH #### [facility] [address] [place] [address] Dr. Gianna Rodgers Urea nitrogen [Mass/Vol] 17.0 mg/dL Normal 7.0-18.0 [facility] Comment on above: Performed By: #### C RP, URIC, T7, CMP, LIPID, TSH #### [facility] [address] [place] [address] Dr. Gianna Rodgers Urea nitrogen/Creatinine [Mass ratio] 15.7 mg/mg Normal [facility] Comment on above: Performed By: #### C RP, URIC, T7, CMP, LIPID, TSH #### [facility] [address] [place] [address] Dr. Gianna Rodgers TSHon 11-13-2022 TSH 0.436 uIU/mL Normal 0.358-3.740 [facility] Comment on above: Performed By: #### P SASC, VITAD #### [facility] [address] [place] [address] Dr. Gianna Rodgers URIC ACID SERUMon 11-13-2022 Urate [Mass/Vol] 5.2 mg/dL Normal 3.5-7.2 [facility] Comment on above: Performed By: #### C RP, URIC, T7, CMP, LIPID, TSH #### [facility] [address] [place] [address] Dr. Gianna Rodgers VITAMIN D 25 OHon 11-13-2022 VIT D 25-OH 32.8 ng/mL Normal [facility] Comment on above: Performed By: #### P SASC, VITAD #### [facility] [address] [place] [address] Dr. Gianna Rodgers VIT D RANGES SEE BELOW Normal [facility] Comment on above: Result Comment: <20 ng/mL Vit D deficient 20 - <30 ng/mL Vit D insufficient 30 - 100 ng/mL Vit D sufficient >100 ng/mL Potential Toxicity Performed By: #### P SASC, VITAD #### [facility] [address] [place] [address] Dr. Gianna Rodgers LYME DISEASE AB EIA W REFLEX on 06-12-2022 Lyme Total Antibody,EIA Negative Normal Negative [facility] Comment on above: Result Comment: Lyme Antibody Negative No laboratory evidence of infection with B. burgdorferi (Lyme disease). Negative results may occur in patients recently infected (less than or equal to 14 days) with B. burgdorferi. If recent infection is suspected, repeat testing on a new sample collected in 7 to 14 days is recommended. Performed By: #### L YMA #### [facility] [address] [place] [address] Dr. Gianna Rodgers CBC AUTO DIFFon 06-11-2022 BASO # 0.1 103/ul Normal 0.0-0.1 [facility] Comment on above: Performed By: #### C BC #### [facility] [address] [place] [address] Dr. Gianna Rodgers Basophils/100 WBC (Bld) 0.7 % Normal 0.2-2.0 [facility] Comment on above: Performed By: #### C BC #### [facility] [address] [place] [address] Dr. Gianna Rodgers EO # 0.1 103/ul Normal 0.0-0.7 [facility] Comment on above: Performed By: #### C BC #### [facility] [address] [place] [address] Dr. Gianna Rodgers Eosinophils/100 WBC (Bld) 1.6 % Normal 0.9-7.0 [facility] Comment on above: Performed By: #### C BC #### [facility] [address] [place] [address] Dr. Gianna Rodgers Erythrocyte distribution width (RBC) [Ratio] 13.1 % Normal 11.0-15.0 [facility] Comment on above: Performed By: #### C BC #### [facility] [address] [place] [address] Dr. Gianna Rodgers Hematocrit (Bld) [Volume fraction] 45.2 % Normal 42.0-54.0 [facility] Comment on above: Performed By: #### C BC #### [facility] [address] [place] [address] Dr. Gianna Rodgers Hemoglobin (Bld) [Mass/Vol] 15.1 g/dL Normal 14.0-18.0 [facility] Comment on above: Performed By: #### C BC #### [facility] [address] [place] [address] Dr. Gianna Rodgers IG # 0.02 10e3/ul Normal 0.00-0.03 [facility] Comment on above: Performed By: #### C BC #### [facility] [address] [place] [address] Dr. Gianna Rodgers IG % 0.3 % Normal 0.0-0.5 [facility] Comment on above: Performed By: #### C BC #### [facility] [address] [place] [address] Dr. Gianna Rodgers LYMPH # 1.3 103/ul Normal 1.2-3.8 [facility] Comment on above: Performed By: #### C BC #### [facility] [address] [place] [address] Dr. Gianna Rodgers Lymphocytes/100 WBC (Bld) 16.7 % Critically low 20.5-60.0 [facility] Comment on above: Performed By: #### C BC #### [facility] [address] [place] [address] Dr. Gianna Rodgers MANUAL DIFF REQ NO Normal [facility] Comment on above: Performed By: #### C BC #### [facility] [address] [address] [address] Gianna Rodgers MCH (RBC) [Entitic mass] 29.0 pg Normal 25.9-34.0 [facility] Comment on above: Performed By: #### C BC #### [facility] [address] [place] [address] Dr. Gainna Rodgers MCHC (RBC) [Mass/Vol] 33.4 g/dL Normal 29.9-35.2 [facility] Comment on above: Performed By: #### C BC #### [facility] [address] [place] [address] Dr. Gianna Rodgers MCV (RBC) [Entitic vol] 86.9 fL Normal 80.0-94.0 [facility] Comment on above: Performed By: #### C BC #### [facility] [address] [place] [address] Dr. Gianna Rodgers MONO # 0.7 103/ul Normal 0.3-0.8 [facility] Comment on above: Performed By: #### C BC #### [facility] [address] [place] [address] Dr. Gianna Rodgers Monocytes/100 WBC (Bld) 8.7 % Normal 1.7-12.0 [facility] Comment on above: Performed By: #### C BC #### [facility] [address] [place] [address] Dr. Gianna Rodgers NEUT # 5.4 103/ul Normal 1.4-6.5 [facility] Comment on above: Performed By: #### C BC #### [facility] [address] [place] [address] Dr. Gianna Rodgers Neutrophils/100 WBC (Bld) 72.0 % Normal 43.0-75.0 [facility] Comment on above: Performed By: #### C BC #### [facility] [address] [place] [address] Dr. Gianna Rodgers Platelet mean volume (Bld) [Entitic vol] 9.4 fL Critically low 9.5-13.5 [facility] Comment on above: Performed By: #### C BC #### [facility] [address] [address] [address] Gianna Rodgers PLT 385 103/ul Normal 150-450 [facility] Comment on above: Performed By: #### C BC #### [facility] [address] [address] [address] Gianna Rodgers RBC 5.20 106/ul Normal 4.70-6.10 [facility] Comment on above: Performed By: #### C BC #### [facility] [address] [address] [address] Gianna Rodgers WBC 7.5 103/ul Normal 4.0-11.0 [facility] Comment on above: Performed By: #### C BC #### [facility] [address] [place] [address] Dr. Gianna Rodgers CRPon 06-11-2022 CRP 3.8 mg/dL Critically high <=1.0 [facility] Comment on above: Performed By: #### P SASC, VITAD #### [facility] [address] [place] [address] Dr. Gianna Rodgers [facility]ATE 46 mm/hr Critically high <=20 [facility] Comment on above: Performed By: #### P ALBERTOC, VITAD #### [facility] [address] [place] [address] Dr. Gianna Rodgers XR KUB 1 VIEWon [...] by: MEÑO ARIZA Date: 2022-03-01 16:28 Normal [facility] Vital Signs Date Time Vital Sign Value Performing Clinician Ekaterina shankar 05-28-2024 10:11-0400 Blood Pressure Location Jasper BEE [facility] 05-28-2024 10:11-0400 Diastolic blood pressure 86 mm[Hg] Jasper BEE [facility] 05-28-2024 10:11-0400 Heart rate 94 /min Jasper BEE [facility] 05-28-2024 10:11-0400 Respiratory rate 16 /min Jasper BEE [facility] 05-28-2024 10:11-0400 Systolic blood pressure 146 mm[Hg] Jasper BEE [facility] 05-26-2023 12:36-0400 Diastolic blood pressure 100 mm[Hg] Jasper BEE [facility] 05-26-2023 12:36-0400 Mean blood pressure 117 mm[Hg] Jasper BEE [facility] 05-26-2023 12:36-0400 Systolic blood pressure 150 mm[Hg] Jasper BEE [facility] 05-26-2023 12:25-0400 Blood Pressure Location Jasper BEE [facility] 05-26-2023 12:25-0400 Diastolic blood pressure 91 mm[Hg] Jasper BEE [facility] 05-26-2023 12:25-0400 Heart rate 80 /min Jasper BEE [facility] 05-26-2023 12:25-0400 Systolic blood pressure 162 mm[Hg] Jasper BEE [facility] 11-22-2022 13:01-0500 Blood Pressure Location Mary Beth NILL [facility] [place] 11-22-2022 13:01-0500 Diastolic blood pressure 96 mm[Hg] Mary Beth NILL [facility] [place] 11-22-2022 13:01-0500 Heart rate 72 /min Mary Beth NILL [facility] [place] 11-22-2022 13:01-0500 Respiratory rate 16 /min Mary Beth NILL [facility] [place] 11-22-2022 13:01-0500 Systolic blood pressure 152 mm[Hg] Mary Beth NILL [facility] [place] 02-22-2022 10:47-0400 Blood Pressure Location Jasper BEE [facility] 02-22-2022 10:47-0400 Diastolic blood pressure 81 mm[Hg] Jasper BEE [facility] 02-22-2022 10:47-0400 Heart rate 70 /min Jasper BEE [facility] 02-22-2022 10:47-0400 Respiratory rate 16 /min Jasper BEE [facility] 02-22-2022 10:47-0400 Systolic blood pressure 132 mm[Hg] Jasper BEE [facility] Encounters Encounter Date Encounter Type Care Provider Facility Start: 06-17-2025 ambulatory Jasper BEE Facili ty: Start: 05-31-2024 End: 05-31-2024 Lab Drop off Jasper BEE [facility] Start: 05-31-2024 End: 05-31-2024 ambulatory Jasper BEE Facility:[facility] Start: 05-31-2024 End: 05-31-2024 Patient encounter procedure Jasper BEE [facility] Start: 05-28-2024 End: 05-28-2024 ambulatory Jasper BEE Facility: Start: 05-28-2024 End: 05-28-2024 Patient encounter procedure Jasper BEE [facility] Start: 05-26-2023 End: 05-26-2023 Patient encounter procedure Jasper BEE [facility] [place] Start: 02-19-2023 End: 02-20-[address] JASPER BEE . Facility:[facility] Start: 01-07-2023 End: 01-07-2023 Patient encounter procedure Mary Beth WEIR [facility] [place] Start: 12-18-2022 End: 12-18-[address] MARY [...] Jasper BEE [facility] Procedures Date Procedure Procedure Detail Performing Clinician Start: 12-18-2022 Colonoscopy Mary Beth LIRIANO Start: 11-13-[address] ANNA SALEEM . Comment on above: Performed By: #### P SASC, VITAD #### [facility] [address] [place] [address] Dr. Gianna Rodgers Start: 03-01-2021 Extracorporeal shock wave lithotripsy of calculus of kidney Jasper BEE Start: 05-04-2019 Cystoscopic removal of ureteric stent Jasper BEE Start: 04-29-2019 Lithotripsy using laser Jasper BEE Comment on above: Cysto, sridevi rg, sridevi u reteroscopy, UD, holmium laser, basket extraction, bilateral stent placement Hernia repair Jasper GAEL Repair of left ingui nal hernia Mary Beth WEIR Immunizations Immunization Date Immunization Notes Care Provider Hernan martinez 01-16-2021 SARS-CoV-2 (COVID-19 ) mRNA BNT-162b2 vax Jasper BEE [facility] 12-27-2020 SARS-CoV-2 (COVID-19 ) mRNA BNT-162b2 vax Mary Beth HUANGWillem [facility] [place] NEGATED: Highlighted row has not occurred!11-22-2022 influenza virus vaccine, unspecified formulation Mary Beth HUANGWillem [facility] [place] Payers Date Payer Category Payer Private Health Insurance [id number] 1960 Medicare [id number] 1960 Medicare [id number] 1955 Unknown [id number] 2.16.84 [id number] 1955 Unknown [id number] 2.16.84 [id number] 1954 Unknown [id number] 2.16.84 [id number] 1954 Unknown [id number] 2.16.84 [id number] 1954 Unknown [id number] 2.16.84 [id number] 1954 Unknown [id number] 2.16.84 [id number] 1954 Unknown [id number] 2.16.84 [id number] 1954 Unknown [id number] 2.16.8 [id number] 1954 Unknown [id number] 2.16.8 [id number] 1954 Unknown [id number] 2.16.8 [id number] 1955 Unknown [id number] 2.16.8 [id number] Social History Date Type Detail Facility Start: 07-26-2019 End: 05-28-2024 Tobacco smoking status Never smoked tobacco (finding) [facility] Tobacco smoking status Never [facility] Sex Assigned At Male [facility] Functional Status Date Assessment Result Facility 05-28-2024 Functional Status N/A [facility] 05-26-2023 Functional Status N/A [facility] 11-22-2022 Functional Status N/A [facility] Clinical Notes 02-22-2022 to 05-28-2024 Note Date [...] urethra. Follow these instructions at home: Take smxb-who-yvzcanl and prescription medicines only as told by [...] provider. Document Revised: 04/17/2022 Document Reviewed: 04/17/2022 [employer] Patient Education 2022 [employer]. Follow Up Care 05/26/2023 13:38:43 With:GAEL KRISHNAMURTHY, Jasper Panchal, URL Address: [address] [place], [place] [id number]- When: Unknown [facility] 05-28-2024 Note Patient Education Urology [...] Follow these instructions at home: ? Take epxo-jgu-qsjofzd and prescription medicines only as told by [...] develop side effec (more content not included)... [facility] 05-26-2023 Hospital Discharge instructions Patient Education [...] include: ?8 oz (237 mL) of milk, eqilfny-nhpzjdhzatwl-vjidg milk, and calcium-fortifiedfruit juice. Calcium-fortified means that [...] ?Spinach (cooked), rhubarb, beets, sweet potatoes, and [place] Citizen chard. ?Peanuts. ?Potato chips, urdu fries, and baked potatoes with skin on. ?Nuts and nut products. ?Chocolate. If you regularly take a diuretic medicine, make sure to eat at least 1 or 2 servings of fruits or vegetables that are high in potassium each day. These include: ?Avocado. ?Banana. ?Ramsey, prune, carrot, or tomato juice. ?Baked potato. [...] magnesium, fish oil, or vitamin B6. Take qedl-npp-mbxvxfh and prescription medicines only as told by [...] Casseroles. Pizza. Lasagna. Frozen meals. Potato chips. Lebanese fries. The items listed above may not [...] provider. Document Revised: 06/10/2022 Document Reviewed: 06/10/2022 [employer] Patient Education 2022 [employer]. Follow Up Care 02/22/2022 11:51:46 With:GAEL KRISHNAMURTHY, Jasper Panchal, URL Address: [facility] [address] , [place] [address]- [phone] When:Within 1 Year(s) Comments:JOAN [facility] 12-18-2022 Note OPERATIVE NOTE OPERATION DATE: [...] in good condition. CC: Alanis Saleem M.D. [facility] 02-22-2022 Hospital Discharge instructions Patient Education 02/22/2022 08:11:52 Kidney Stones, Efaa-eh-Ctjm Kidney Stones Kidney stones are rock-like masses [...] Follow these instructions at home: Medicines Take gyet-tvh-belkhwq and prescription medicines only as told by [...] 03/17/2009 Document Revised: 02/15/2020 Document Reviewed: 02/15/2020 [employer] Patient Education 2020 [employer]. Follow Up Care 03/20/2021 09:44:29 With:Jasper BEE MD, URL Address: [facility] [address], [place] [address]- When: Unknown [facility] Evaluation + Plan note Future Appointments Appointment Date:02/24/2023 11:15:00 AM Scheduled Provider:Jasper BEE MD Location:[facility] Appointment Type:URO Office Visit [facility] Evaluation + Plan note Future Appointments Appointment Date:05/28/2024 10:15:00 AM Scheduled Provider:Jasper BEE MD Location:[facility] Appointment Type:URO Office Visit [facility] Evaluation + Plan note Future Appointments Appointment Date:05/31/2024 10:00:00 AM Scheduled Provider: Location:[facility] Appointment Type:URO Nurse Visit Appointment Date:05/30/2025 11:15:00 AM Scheduled Provider:Jasper BEE MD Location:[facility] Appointment Type:URO Office Visit [facility] Evaluation + Plan note Future Appointments Appointment Date:05/30/2025 11:15:00 AM Scheduled Provider:Jasper BEE MD Location:[facility] Appointment Type:URO Office Visit [facility] Hospital course Narrative No data available for this section [facility] Hospital Discharge instructions No data available for this section [facility] [place] note No data available for this section [facility] [place] Summary Purpose Family History No Family History [...] Personnel Name: Alanis Saleem MD Address: Address: [address] [place] [address] Personnel Name: Alanis Saleem MD Address: Address: [address] [place] [address] Personnel Name: Alanis Saleem MD Address: Address: [address] [place] [address] Personnel Name: Alanis Saleem MD Address: Address: [address] [place] [address] Personnel Name: Alanis Saleem MD Address: Address: [address] [place] [address] Personnel Name: Alanis Saleem MD Address: Address: [address] [place] [address] (unrecognized sect ion and content) No Status Records FoundNo Status Records FoundNo Status Records Found INFORMATION SOURCE (unrecogn ized section and content) DATE CREATED AUTHOR 02/23/2023 [facility] [place] [facility] DATE CREATED AUTHOR AUTHOR'S ORGANIZ ATION 06/07/2024 [facility] DATE CREATED AUTHOR AUTHOR'S ORGANIZ ATION 05/20/2025 [facility] FOR RECORDS PERTAINING TO PATIENTS WHO ARE [...] BE BASED ON THE PRIMARY CLINICAL RECORDS. [facility] [employer] [facility]. provides no warranty or guarantee of the accuracy or completeness of information in this document.
== END 2025-06-14 13:34 | disposition home or self-care (01) ==
LOC: RAD 13:34
PROVIDERS: PCP Family Medicine; Visit Provider Urology
DX: N20.0 Calculus of kidney (principal)
CPT/HCPCS: 74018